=== PATIENT | male | born 1950 | race African-American/Black ===

== ENCOUNTER 2018-01-16 15:35 | Emergency (ER) | payer OTHER ==
--- OUTSIDE RECORDS SUMMARY | 2018-01-16 15:44 | XMS REPORT | Clinical Summary ---
:1950 Author Organization [facility] Address [address] [place] [address] Phone Care Team Providers Name Role Phone Unavailable Primary Care Provider Unavailable Allergies No Known Allergies Current Medications Prescription Sig. Disp. Refills Start Date End Date Status acetaminophen-codeine Take 1 tablet by 30 tablet 1 01/09/2018 01/19/2018 Active (TYLENOL #3) 300-30 mg mouth every 4 per tablet (four) hours as needed for up to 10 days. Max Daily Amount: 6 tablets aspirin 81 MG chewable Take 1 tablet 0 01/09/2018 01/09/2019 Active tablet (81 mg total) by mouth daily. atorvastatin (LIPITOR) Take 1 tablet 30 tablet 1 01/09/2018 01/09/2019 Active 80 MG tablet (80 mg total) by mouth nightly. bimatoprost (LUMIGAN) Place 1 drop 2.5 mL 1 01/09/2018 Active 0.01 % Drop ophthalmic into both eyes solution nightly. brimonidine-timolol Place 1 drop 5 mL 1 01/09/2018 Active (COMBIGAN) 0.2-0.5 % into both eyes ophthalmic solution every 12 (twelve) hours. metoprolol (LOPRESSOR) Take 0.5 tablets 60 tablet 1 01/09/2018 01/09/2019 Active 25 MG tablet (12.5 mg total) by mouth 2 (two) times daily. clopidogrel (PLAVIX) Take 1 tablet 90 tablet 3 01/09/2018 01/09/2019 Active 75 mg tablet (75 mg total) by mouth daily. 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 STEMI (ST elevation myocardial infarction) (HCC) 12/30/2017 Coronary artery disease involving king salmon coronary artery of king salmon heart 12/30 without angina pectoris Respiratory insufficiency Cardiogenic shock (HCC) Pericarditis as complication of acute myocardial infarction (HCC) Chronic kidney disease, unspecified CKD stage Encounters Date Type Specialty Care Team Description 01/09/2018 Procedure Pass 12/31/2017 Orders Only General Internal Medicine 12/31/2017 Procedure Pass 12/31/2017 Anesthesia Event Carlee Raygoza MD 12/30/2017 - Hospital Encounter Cardiology Alcon Henson, Cardiogenic shock 01/09/2018 MD ([facility]);S/P CABG x Beck Zepeda, 4;Acute blood loss anemia;Acute CalvinLeo postoperative (Garo) MD Lazaro pain;Acute respiratory insufficiency 12/30/2017 Anesthesia Event Fili Li MD 12/30/2017 Procedure Pass 12/30/2017 Surgery Carlotta Kwon BYPASS,CORONARY MD Nancy ENDOVASCULAR 12/30/2017 Procedure Pass 12/30/2017 Surgery Alcon Henson L CATH & CORONARY ANGIOS 12/30/2017 Procedure Pass after 01/15/2017 Social History Tobacco Use Types Packs/Day Years Used Date Former Smoker Quit: 07/10/1987 Tobacco Cessation: Counseling Given: No Sex Assigned at Date Recorded Not on file Last Filed Vital Signs Vital Sign Reading Time Taken Blood Pressure 123/61 01/09/2018 11:41 AM CDT Pulse 74 01/09/2018 12:06 PM CDT Temperature 35.9 C (96.6 F) 01/09/2018 11:41 AM CDT Respiratory Rate 18 01/09/2018 12:06 PM CDT Oxygen Saturation 91% 01/09/2018 12:06 PM CDT Inhaled Oxygen Concentration - - Weight 75.1 kg (165 lb 9.6 oz) 01/09/2018 7:51 AM CDT Height 182.9 cm (6') 12/31/2017 7:00 AM CDT Body Mass Index 22.46 01/09/2018 7:51 AM CDT Plan of Treatment Date Type Specialty Care Team Description 01/23/2018 Office Visit Cardiology Carlotta Kwon MD [address] [place] [address] [phone] Procedures Procedure Name Priority Date/Time Associated Diagnosis Comments BYPASS,CORONARY 12/30/2017 7:30 PM Other acne ENDOVASCULAR CDT L CATH & CORONARY ANGIOS 12/30/2017 3:[address] elevation CDT myocardial infarction (STEMI), unspecified artery (HCC) after 01/15/2017 Results EKG-SCANNED (01/11/2018 10:40 AM)VASCULAR DIAGRAM -SCAN (01/11/2018 10:40 AM) RHYTHM STRIP - SCAN (01/11/2018 10:40 AM)POC-Glucose meter (01/09/2018 11:28 AM) Only the most recent of27 resultswithin the time period is included. Component Value Ref Range POC-Glucose Meter 110Comment: TESTED AT [address] 70 - 110 mg/dL [address] Specimen Performing Laboratory Blood [facility] [address] [address] CBC with platelet count + automated diff (01/09/2018 5:08 AM)Only the most recent of12 resultswithin the time period is included. Component Value Ref Range WBC 6.7 3.5 - 10.5 K/L RBC 3.07 (L) 4.63 - 6.08 M/L Hemoglobin 8.8 (L) 13.7 - 17.5 GM/DL Hematocrit 28.3 (L) 40.1 - 51.0 % MCV 92.2 79.0 - 92.2 fL MCH 28.7 25.7 - 32.2 pg MCHC 31.1 (L) 32.3 - 36.5 GM/DL RDW 14.1 11.6 - 14.4 % Platelets 224 150 - 450 K/CU MM MPV 12.1 9.4 - 12.4 fL nRBC 0 0 - 0 /100 WBC % Neutros 69 % % Lymphs 17 % % Monos 10 % % Eos 3 % % Baso 0 % # Neutros 4.58 1.78 - 5.38 K/L # Lymphs 1.15 (L) 1.32 - 3.57 K/L # Monos 0.69 0.30 - 0.82 K/L # Eos 0.19 0.04 - 0.54 K/L # Baso 0.03 0.01 - 0.08 K/L Immature Granulocytes-Relative 1 0 - 1 % Specimen Performing Laboratory Blood [address] [address] CBC with platelet count + automated diff (01/09/2018 5:08 AM)Only the most recent of12 resultswithin the time period is included. Specimen Performing Laboratory Blood Narrative The following orders were created for panel order CBC with platelet count + automated diff. Procedure Abnormality Status --------- ------ CBC with platelet count ...[[id number]]AbnormalFinal result Please view results for these tests on the individual orders. Basic metabolic panel (01/09/2018 5:08 AM)Only the most recent of11 resultswithin the time period is included. Component Value Ref Range Sodium 135 (L) 136 - 145 meq/L Potassium 4.3 3.5 - 5.1 meq/L Chloride 102 98 - 107 meq/L CO2 26 22 - 29 meq/L BUN 17 7 - 21 mg/dL Creatinine 1.04 0.57 - 1.25 mg/dL Glucose 97 70 - 105 mg/dL Calcium 8.9 8.4 - 10.2 mg/dL EGFR 86Comment: ESTIMATED GFR IS NOT ACCURATE mL/min/1.73 sq m CREATININE CLEARANCE IN PREDICTING GLOMERULAR FILTRATION RATE. ESTIMATED GFR IS NOT APPLICABLE FOR DIALYSIS PATIENTS. Specimen Performing Laboratory Blood [address] [address] XR shoulder complete 2 views min left (01/08/2018 9:00 PM) Specimen Performing Laboratory GE RIS Narrative FINAL REPORT Technique: Multiple views of the left shoulder FINDINGS: Exam somewhat limited for the assessment of dislocation is a Y view is not submitted. No definite fracture or dislocation seen. Degenerative changes at the AC joint and glenohumeral joints noted. Signed: Nikolas Fernández MD Report Verified Date/Time:01/08/2018 21:27:28 Reading Location: [address] Consult Reading Room Procedure Note Interface, External Ris In - 01/08/2018 9:38 PM CDT FINAL REPORT Technique: Multiple views of the left shoulder FINDINGS: Exam somewhat limited for the assessment of dislocation is a Y view is not submitted. No definite fracture or dislocation seen. Degenerative changes at the AC joint and glenohumeral joints noted. Signed: Nikolas Fernández MD Report Verified Date/Time: 01/08/2018 21:27:28 Reading Location: [facility] C013W Consult Reading Room chest 1 view portable / bedside (01/08/2018 5:42 PM)Only the most recent of11 resultswithin the time period is included. Specimen Performing Laboratory GE RIS Narrative FINAL REPORT Chest, one view. HISTORY: Thoracentesis COMPARISON: 01/07/2018 IMPRESSION: Interval resolution of moderate left pleural effusion. No identifiable pneumothorax. Unchanged enlargement of the cardiomediastinal silhouette with mild interstitial edema. Intact median sternotomy wires. Signed: Hawk Whaley MD Report Verified Date/Time:01/08/2018 17:51:49 Reading Location: [address] Ultrasound Reading Room Procedure Note Interface, External Ris In - 01/08/2018 5:54 PM CDT FINAL REPORT Chest, one view. HISTORY: Thoracentesis COMPARISON: 01/07/2018 IMPRESSION: Interval resolution of moderate left pleural effusion. No identifiable pneumothorax. Unchanged enlargement of the cardiomediastinal silhouette with mild interstitial edema. Intact median sternotomy wires. Signed: Hawk Whaley MD Report Verified Date/Time: 01/08/2018 17:51:49 Reading Location: [facility] P006 Ultrasound Reading Room thoracentesis (01/08/2018 5:30 PM) Specimen Performing Laboratory GE RIS Narrative FINAL REPORT Ultrasound guided left thoracentesis Clinical History:Pleural effusion Modality:Ultrasound Local Anesthesia:10 cc1% lidocaine with bicarbonate Technique:Informed consent is obtained.The risks of pain, bleeding, infection, lung collapse/pneumothorax, injury to adjacent structures, and adverse medication reactions are discussed with the patient.After informed consent is obtained, the patient's left hemithorax is scanned from the back, with the patient upright.After the largest fluid pocket area is marked, the skin is prepped and draped in the usual sterile manner.After the area is anesthetized, a 5 Jamaican catheter is advanced into the pleural space. Approximately 400 cc. of anterior segment is fluid is drained, without immediate complications.Fluid is sent for analysis.Post procedure chest x-ray is pending. Patient disposition:Patient is discharged from the ultrasound department after the thoracentesis in good condition. Impression: Successful and uncomplicated ultrasound guided left thoracentesis is performed. Signed: Hawk Whaley MD Report Verified Date/Time:01/09/2018 13:33:27 Reading Location: [facility] Diagnostic Imaging [facility] [place] [address] Procedure Note Interface, External Ris In - 01/09/2018 1:35 PM CDT FINAL REPORT Ultrasound guided left thoracentesis Clinical History: Pleural effusion Modality: Ultrasound Local Anesthesia: 10 cc1% lidocaine with bicarbonate Technique: Informed consent is obtained. The risks of pain, bleeding, infection, lung collapse/pneumothorax, injury to adjacent structures, and adverse medication reactions are discussed with the patient. After informed consent is obtained, the patient's left hemithorax is scanned from the back, with the patient upright. After the largest fluid pocket area is marked, the skin is prepped and draped in the usual sterile manner. After the area is anesthetized, a 5 Jamaican catheter is advanced into the pleural space. Approximately 400 cc. of anterior segment is fluid is drained, without immediate complications. Fluid is sent for analysis. Post procedure chest x-ray is pending. Patient disposition: Patient is discharged from the ultrasound department after the thoracentesis in good condition. Impression: Successful and uncomplicated ultrasound guided left thoracentesis is performed. Signed: Hawk Whaley MD Report Verified Date/Time: 01/09/2018 13:33:27 Reading Location: [facility] Diagnostic Imaging Reading [facility] [place] [address] pH, body fluid (01/08/2018 4:50 PM) Component Value Ref Range pH, Body Fluid 7.58 Specimen Performing Laboratory Body Fluid - Thoracentesis [address] [address] Glucose, body fluid (01/08/2018 4:50 PM) Component Value Ref Range Glucose, Body Fluid 111 mg/dL Specimen Performing Laboratory Body Fluid - Thoracentesis [address] [address] Narrative Absence of reference range indicates that normals have not been defined. Assay performance has not been validated for this type of specimen. Body fluid culture + gram stain (01/08/2018 4:50 PM) Component Value Ref Range Result No growth Gram Stain Result <1+ WBCs Gram Stain Result No organisms seen Specimen Performing Laboratory Body Fluid - Thoracentesis [address] [address] Body fluid cell count with differential (01/08/2018 4:50 PM) Component Value Ref Range Appearance Bloody (A) Clear Color Red (A) Colorless, Straw RBCs 9226824 (H) <=1 /cu mm Adjusted WBC Count 2068 (H) <=5 /cu mm Lining Cells 62 (H) <=1 /cu mm % Segs 8 % % Lymphs 37 % % Monos 53 % % Eos 2 % % Baso 0 % Container Body Fluid EDTA Tube Specimen Performing Laboratory Body Fluid - Thoracentesis [address] [address] Protein, body fluid (01/08/2018 4:50 PM) Component Value Ref Range Protein, Fluid 3.8 g/dL Specimen Performing Laboratory Body Fluid - Thoracentesis [address] [address] Narrative Absence of reference range indicates that normals have not been defined. Assay performance has not been validated for this type of specimen. Lactate dehydrogenase (LDH), body fluid (01/08/2018 4:50 PM) Component Value Ref Range LDH, Fluid 595 U/L Specimen Performing Laboratory Body Fluid - Thoracentesis [address] [address] Narrative Absence of reference range indicates that normals have not been defined. Assay performance has not been validated for this type of specimen. Albumin, body fluid (01/08/2018 4:50 PM) Component Value Ref Range Albumin, Fluid 2.3 gm/dL Specimen Performing Laboratory Body Fluid - Thoracentesis [address] [address] Narrative Reference Range:No Normals Assay performance has not been validated for this type of specimen. PT/aPTT (01/08/2018 4:35 AM) Component Value Ref Range Protime 14.3 11.7 - 14.7 seconds INR 1.1 <=5.9 PTT 33.3 22.5 - 36.0 seconds Specimen Performing Laboratory Blood [address] [address] Narrative RECOMMENDED COUMADIN/WARFARIN INR THERAPY RANGES STANDARD DOSE: 2.0 - 3.0 Includes: PROPHYLAXIS for venous thrombosis, systemic embolization; TREATMENT for venous thrombosis and/or pulmonary embolus. HIGH RISK: Target INR is 2.5-3.5 for patients with mechanical heart valves. Prothrombin time/INR (01/08/2018 4:35 AM)Only the most recent of8 resultswithin the time period is included. Component Value Ref Range Protime 14.3 11.7 - 14.7 seconds INR 1.1 <=5.9 Specimen Performing Laboratory Blood [address] [address] Narrative RECOMMENDED COUMADIN/WARFARIN INR THERAPY RANGES STANDARD DOSE: 2.0 - 3.0 Includes: PROPHYLAXIS for venous thrombosis, systemic embolization; TREATMENT for venous thrombosis and/or pulmonary embolus. HIGH RISK: Target INR is 2.5-3.5 for patients with mechanical heart valves. Protein, total (01/08/2018 4:35 AM) Component Value Ref Range Protein, Total 6.6 6.0 - 8.3 gm/dL Specimen Performing Laboratory Blood [address] [address] Lactate dehydrogenase (LDH) (01/08/2018 4:35 AM) Component Value Ref Range LDH 289 (H) 125 - 220 U/L Specimen Performing Laboratory Blood [address] [address] Albumin (01/08/2018 4:35 AM) Component Value Ref Range Albumin 3.2 (L) 3.5 - 5.0 g/dL Specimen Performing Laboratory Blood [facility] [address] [place] [address] CT chest with IV contrast (01/07/2018 4:47 PM) Specimen Performing Laboratory GE RIS Narrative FINAL REPORT INDICATION: 67-year-old male with left pleural effusion. COMPARISON: Chest radiograph January 07, 2018 TECHNIQUE: Chest CT exam WITHintravenous contrast. The exam was performed according to our department dose-optimization protocol, which includes automated exposure control, adjustments of mA and kV according to patient size. Iterative reconstructions are also sometimes employed. FINDINGS: There is a small layering low density left pleural effusion associated with partial collapse of the left lower lobe. In the left anterior pleura there is loculated fluid with several foci of air likely from recent thoracentesis. Tiny right posterior layering pleural effusion also noted. Patient is status post recent median sternotomy and coronary artery bypass surgery. Sternotomy wires are intact. No mediastinal hematoma. No pulmonary edema or definite pneumonia. Central airways are clear. No mediastinal or hilar lymphadenopathy. Esophagus and upper abdomen are unremarkable. IMPRESSION: Small layering low density left pleural effusion with small anterior loculated intermediate density fluid component. Recent median sternotomy and coronary artery bypass surgery. Signed: Tod Britt MD Report Verified Date/Time:01/07/2018 18:26:42 Reading Location: [facility] C013Y CT Body Reading Room Procedure Note Interface, External Ris In - 01/07/2018 6:28 PM CDT FINAL REPORT INDICATION: 67-year-old male with left pleural effusion. COMPARISON: Chest radiograph January 07, 2018 TECHNIQUE: Chest CT exam WITH intravenous contrast. The exam was performed according to our department dose-optimization protocol, which includes automated exposure control, adjustments of mA and kV according to patient size. Iterative reconstructions are also sometimes employed. FINDINGS: There is a small layering low density left pleural effusion associated with partial collapse of the left lower lobe. In the left anterior pleura there is loculated fluid with several foci of air likely from recent thoracentesis. Tiny right posterior layering pleural effusion also noted. Patient is status post recent median sternotomy and coronary artery bypass surgery. Sternotomy wires are intact. No mediastinal hematoma. No pulmonary edema or definite pneumonia. Central airways are clear. No mediastinal or hilar lymphadenopathy. Esophagus and upper abdomen are unremarkable. IMPRESSION: Small layering low density left pleural effusion with small anterior loculated intermediate density fluid component. Recent median sternotomy and coronary artery bypass surgery. Signed: Tod Britt MD Report Verified Date/Time: 01/07/2018 18:26:42 Reading Location: [facility] C013 CT Body Reading Room Magnesium (01/06/2018 3:57 AM)Only the most recent of8 resultswithin the time period is included. Component Value Ref Range Magnesium 2.0 1.6 - 2.6 mg/dL Specimen Performing Laboratory Blood - Arm, Left [address] [address] TRANSFUSION SERVICE REPORT - SCAN (01/04/2018 5:52 PM)Only the most recent of5 resultswithin the time period is included.Prepare Leuko-Red RBC (01/03/2018 11: 54 PM)Only the most recent of2 resultswithin the time period is included. Component Value Ref Range CROSSMATCH COMPATIBLE Unit ABO O Pos UNIT NUMBER [id number] Status TRANSFUSED Blood Bank Product RED BLOOD CELLS PRODUCT CODE [id number] Specimen Performing Laboratory Other [employer] [place] Hemoglobin and hematocrit (01/03/2018 4:08 PM)Only the most recent of3 resultswithin the time period is included. Component Value Ref Range Hemoglobin 7.7 (L) 13.7 - 17.5 GM/DL Hematocrit 24.7 (L) 40.1 - 51.0 % Specimen Performing Laboratory Blood [address] [address] Lactic acid, venous, whole blood (01/03/2018 4:08 PM) Component Value Ref Range Lactate, Venous 1.1 0.5 - 2.2 mmol/L Specimen Performing Laboratory Blood [address] [address] Narrative Effective 10/13/2015: Units/Reference Range Change New: 0.5-2.2 mmol/LPrevious: 5-20 mg/dL ECHOCARDIOGRAM REPORT - SCAN (01/03/2018 11:20 AM)CBC (Hemogram only) (2017 9:12 AM) Component Value Ref Range WBC 7.6 3.5 - 10.5 K/L RBC 2.59 (L) 4.63 - 6.08 M/L Hemoglobin 7.4 (L) 13.7 - 17.5 GM/DL Hematocrit 23.4 (L) 40.1 - 51.0 % MCV 90.3 79.0 - 92.2 fL MCH 28.6 25.7 - 32.2 pg MCHC 31.6 (L) 32.3 - 36.5 GM/DL RDW 14.2 11.6 - 14.4 % Platelets 96 (L) 150 - 450 K/CU MM MPV 12.8 (H) 9.4 - 12.4 fL nRBC 0 0 - 0 /100 WBC Specimen Performing Laboratory [address] [address] Oxygen saturation, measured (01/03/2018 3:16 AM)Only the most recent of4 resultswithin the time period is included. Component Value Ref Range O2 Saturation (Measured) 90.1 % Specimen Performing Laboratory [address] [address] Calcium, Ionized (01/03/2018 3:16 AM)Only the most recent of5 resultswithin the time period is included. Component Value Ref Range Calcium, Ion 1.11 (L) 1.12 - 1.27 mmol/L pH, Blood 7.42 Specimen Performing Laboratory [address] [address] aPTT (01/03/2018 3:16 AM)Only the most recent of6 resultswithin the time period is included. Component Value Ref Range PTT 32.0 22.5 - 36.0 seconds Specimen Performing Laboratory [address] [address] Phosphorus (01/03/2018 3:16 AM)Only the most recent of5 resultswithin the time period is included. Component Value Ref Range Phosphorus 2.6 2.3 - 4.7 mg/dL Specimen Performing Laboratory [address] [address] Hepatic function panel (01/03/2018 3:16 AM)Only the most recent of5 resultswithin the time period is included. Component Value Ref Range Protein, Total 5.8 (L) 6.0 - 8.3 gm/dL Albumin 3.1 (L) 3.5 - 5.0 g/dL Total Bilirubin 0.9 0.2 - 1.2 mg/dL Bilirubin, Direct 0.5 0.1 - 0.5 mg/dL Alkaline Phosphatase 47 40 - 150 U/L AST 23 5 - 34 U/L ALT 8 6 - 55 U/L Specimen Performing Laboratory Blood [facility] [address] [place] [address] Transfuse Leuko-Red RBC (01/02/2018 10:41 PM)Only the most recent of4 resultswithin the time period is included.2D Echo W/Doppler(CW/PW/Color) (2017 11:49 AM) Component Value Ref Range Ejection Fraction Specimen Performing Laboratory [facility] Narrative Transthoracic Echocardiography Report (TTE) Demographics Patient Name PAYNE,Date of Study2017 JUSTIN [id number] Gender Male Visit Number [id number] Race Unknown [id number] Number 2C50 Number Date of Birth1950 Referring PhysicianShela Beck S Age67 year(s) SonographChrisetlle lEliott [facility] Interpreting Tiffanie Burgess Procedure Type of Study TTE procedure:2DECHO W DOPPLER(CW/PW/COLOR) (Routine) Indications:Acute Chest Pain/ Suspected CAD and Post Op . Clinical History Bypass/coronary endovascular12/30/17; L cath/CA12/30/17; HGB 6.9 HCT 21.4 % Contrast Medium: Definity. Height: 72 inches Weight: 82.1 kg (181 lbs) BSA: 2.04 m^2 BMI: 24.55 kg/m^2 HR: 84 bpm BP: 161/50 mmHg Summary The left ventricle is chamber size (by PSLAX dimension) is normal (male - LVIDd 4.2-5.8cm) . Normal LV wall thickness. All of the LV segments contract normally . LVEF by Gallardo's method of disk assessment is lower limits of normal (50-55%) . LV diastolic function is indeterminate. There is mild aortic regurgitation. Unable to estimate peak systolic PA pressure; inadequate TR velocity signal. A small pericardial effusion is present posteriorly. Signature Findings Left Ventricle The left ventricle is chamber size (by PSLAX dimension) is normal (male - LVIDd 4.2-5.8cm) . Normal LV wall thickness. All of the LV segments contract normally . LVEF by Gallardo's method of disk assessment is lower limits of normal (50-55%) . LV diastolic function is indeterminate. Left AtriumLA size is normal (16-34 ml/m2) . Right VentricleThe right ventricular chamber size and systolic function are within normal limits. Right Atrium RA size is normal. Aortic Valve Mild AoV cusp thickening. Mild AoV cusp calcification. There is mild aortic regurgitation. Mitral Valve Mild MV leaflet thickening. Tricuspid ValveTV structure is normal. Mild tricuspid regurgitation. Unable to estimate peak systolic PA pressure; inadequate TR velocity signal. Pulmonic Valve Normal PV structure and function by limited views and Doppler. AortaAortic root size (SInus of Valsalva diameter) is normal . PericardiumA small pericardial effusion is present posteriorly. IVC/SVC/PA/PV/PleuralA left pleural effusion is noted. The estimated RA pressure by IVC dynamics 5-10mmHg . Chambers/Structures Left Atrium LA Dimension: 3.45 cmLA Area: 16.68 cm^2 LA Volume: 46.47 ml LA Vol. Index: 23 ml/m^2 Left Ventricle LVIDd: 3.92 cm LVIDs: 2.79 cm LV Septum Diastolic: 0.97 cm LV PW Diastolic: 1.12 cmLV FS: 28.8 % LVEDV Gallardo's:133.53 ml LVESV Gallardo's:55 ml LVEDVI: 65 ml/m^2 LVEF Gallardo's: 58.8 %LVESVI: 27 ml/m^2 LVOT Diameter: 2.37 cm Aorta Ao Root S of Maria Isabel.: 3.19 cm Doppler/Quantitative Measurements LVOT LVOT Diameter: 2.37 cm LVOT Area: 4.41 cm^2 Procedure Note Interface, External Ris In - 01/03/2018 10:34 AM CDT Transthoracic Echocardiography Report (TTE) Demographics Patient Name PAYNE, Date of Study 01/02/2018 JUSTIN Gender Male Visit Number [id number] Race Unknown Room Number 2C50 Number Date of 1950 Referring Physician Katelyn Saavedra Age 67 year(s) Developer Automatic Charlette Elliott [facility] Interpreting Physician HANNAH Burgess Procedure Type of Study TTE procedure:2DECHO W DOPPLER(CW/PW/COLOR) (Routine) Indications:Acute Chest Pain/ Suspected CAD and Post Op . Clinical History Bypass/coronary endovascular12/30/17; L cath/CA12/30/17; HGB 6.9 HCT 21.4 % Contrast Medium: Definity. Height: 72 inches Weight: 82.1 kg (181 lbs) BSA: 2.04 m^2 BMI: 24.55 kg/m^2 HR: 84 bpm BP: 161/50 mmHg Summary The left ventricle is chamber size (by PSLAX dimension) is normal (male - LVIDd 4.2-5.8cm) . Normal LV wall thickness. All of the LV segments contract normally . LVEF by Gallardo's method of disk assessment is lower limits of normal (50-55%) . LV diastolic function is indeterminate. There is mild aortic regurgitation. Unable to estimate peak systolic PA pressure; inadequate TR velocity signal. A small pericardial effusion is present posteriorly. Signature Findings Left Ventricle The left ventricle is chamber size (by PSLAX dimension) is normal (male - LVIDd 4.2-5.8cm) . Normal LV wall thickness. All of the LV segments contract normally . LVEF by Gallardo's method of disk assessment is lower limits of normal (50-55%) . LV diastolic function is indeterminate. Left Atrium LA size is normal (16-34 ml/m2) . Right Ventricle The right ventricular chamber size and systolic function are within normal limits. Right Atrium RA size is normal. Aortic Valve Mild AoV cusp thickening. Mild AoV cusp calcification. There is mild aortic regurgitation. Mitral Valve Mild MV leaflet thickening. Tricuspid Valve TV structure is normal. Mild tricuspid regurgitation. Unable to estimate peak systolic PA pressure; inadequate TR velocity signal. Pulmonic Valve Normal PV structure and function by limited views and Doppler. Aorta Aortic root size (SInus of Valsalva diameter) is normal . Pericardium A small pericardial effusion is present posteriorly. IVC/SVC/PA/PV/Pleural A left pleural effusion is noted. The estimated RA pressure by IVC dynamics 5-10mmHg . Chambers/Structures Left Atrium LA Dimension: 3.45 cm LA Area: 16.68 cm^2 LA Volume: 46.47 ml LA Vol. Index: 23 ml/m^2 Left Ventricle LVIDd: 3.92 cm LVIDs: 2.79 cm LV Septum Diastolic: 0.97 cm LV PW Diastolic: 1.12 cm LV FS: 28.8 % LVEDV Gallardo's:133.53 ml LVESV Gallardo's:55 ml LVEDVI: 65 ml/m^2 LVEF Gallardo's: 58.8 % LVESVI: 27 ml/m^2 LVOT Diameter: 2.37 cm Aorta Ao Root S of Maria Isabel.: 3.19 cm Doppler/Quantitative Measurements LVOT LVOT Diameter: 2.37 cm LVOT Area: 4.41 cm^2 CARDIAC CATH REPORT - SCAN (01/02/2018 11:31 AM)Prepare PLT (01/01/2018 11:54 PM ) Component Value Ref Range Unit ABO O Pos UNIT NUMBER [id number] Status TRANSFUSED Blood Bank Product PLATELETS PRODUCT CODE L3707X05 Unit ABO O Pos UNIT NUMBER [id number] Status TRANSFUSED Blood Bank Product PLATELETS PRODUCT CODE T4486A44 Unit ABO O Pos UNIT NUMBER [id number] Status TRANSFUSED Blood Bank Product PLATELETS PRODUCT CODE T1999A88 Specimen Performing Laboratory [facility] [place] Prepare plasma (01/01/2018 11:54 PM) Component Value Ref Range Unit ABO O Pos UNIT NUMBER [id number] Status TRANSFUSED Blood Bank Product FFP PRODUCT CODE E1616J59 Unit ABO O Pos UNIT NUMBER [id number] Status TRANSFUSED Blood Bank Product FFP PRODUCT CODE J2061Z35 Specimen Performing [facility] [place] Prepare cryoprecipitate (01/01/2018 11:54 PM) Component Value Ref Range Unit ABO O Pos UNIT NUMBER [id number] Status TRANSFUSED Blood Bank Product CRYOPRECIPITATE PRODUCT CODE I1746S88 Specimen Performing Laboratory [facility] [place] Prepare RBC (01/01/2018 11:54 PM) Component Value Ref Range CROSSMATCH COMPATIBLE Unit ABO O Pos UNIT NUMBER [id number] Status RETURNED FROM ISSUE Blood Bank Product RED BLOOD CELLS PRODUCT CODE T5130E59 CROSSMATCH COMPATIBLE Unit ABO O Pos UNIT NUMBER [id number] Status TRANSFUSED Blood Bank Product RED BLOOD CELLS PRODUCT CODE M3141C37 Specimen Performing Laboratory [facility] [place] Blood gas, arterial (01/01/2018 10:27 AM)Only the most recent of13 resultswithin the time period is included. Component Value Ref Range pH, Arterial 7.45 7.35 - 7.45 pCO2, Arterial 37 35 - 45 mm Hg pO2, Arterial 74 (L) 80 - 90 mm Hg O2 Sat, Arterial 95.2 (L) 96.0 - 97.0 % HCO3, Arterial 25 21 - 29 mmol/L Base Excess, Arterial 1.1 -2.0 - 3.0 mmol/L Patient Temperature 37.7 FIO2 36 Specimen Performing Laboratory Blood, Arterial - Line, Arterial [facility] [address] [address] Glucose-Stat Lab (01/01/2018 8:35 AM)Only the most recent of10 resultswithin the time period is included. Component Value Ref Range Glucose 111 (H) 70 - 110 mg/dL Specimen Performing Laboratory Blood, Arterial - Line, Arterial [address] [address] Hemoglobin-Stat Lab (01/01/2018 6:38 AM) Component Value Ref Range Hemoglobin 7.8 (L) 13.0 - 16.8 g/dL Specimen Performing Laboratory Blood, [address] [address] Hematocrit-Stat Lab (01/01/2018 6:38 AM) Component Value Ref Range Hematocrit 23.0 (L) 40.0 - 50.0 % Specimen Performing Laboratory Blood, [address] [address] Lactic acid, arterial, whole blood (01/01/2018 3:31 AM)Only the most recent of2 resultswithin the time period is included. Component Value Ref Range Lactate, Art 1.4 0.5 - 2.2 mmol/L Specimen Performing Laboratory Blood, Arterial - Line, Arterial [address] [address] Narrative Effective 10/13/2015: Units/Reference Range Change New: 0.5-2.2 mmol/LPrevious: 5-20 mg/dL Vancomycin level, random (01/01/2018 3:31 AM) Component Value Ref Range Vancomycin Rm 5.4 ug/mL Specimen Performing Laboratory Blood - Line, [address] [address] Narrative Reference Range: No Normals ECG 12 lead (12/31/2017 10:21 AM) Specimen Performing Laboratory [place] [facility] Narrative Ventricular Rate 71 BPM Atrial Rate 71 BPM P-R Interval 150 ms QRS Duration 80 ms Q-T Interval 392 ms QTC Calculation(Bazett) 425 ms P [place] 27 degrees R [place] 70 degrees T [place] 36 degrees Normal sinus rhythm ST elevation consider anterolateral injury or acute infarct ST elevation consider inferior injury or acute infarct * ACUTE CA * Abnormal ECG No previous ECGs available Confirmed by Kimberlee Vaca Alireaz ([id number]) on 12/31/2017 2:04:59 PM Procedure Note Interface, External Ris In - 12/31/2017 2:05 PM CDT Ventricular Rate 71 BPM Atrial Rate 71 BPM P-R Interval 150 ms QRS Duration 80 ms Q-T Interval 392 ms QTC Calculation(Bazett) 425 ms P [place] 27 degrees R [place] 70 degrees T [place] 36 degrees Normal sinus rhythm ST elevation consider anterolateral injury or acute infarct ST elevation consider inferior injury or acute infarct * ACUTE CA * Abnormal ECG No previous ECGs available Confirmed by Kimberlee Vaca Alireaz ([id number]) on 12/31/2017 2:04:59 PM [facility] (ABG,NA,K,H&H,GLUCOSE) (12/31/2017 4:51 AM)Only the most recent of9 resultswithin the time period is included. Specimen Performing Laboratory Blood, Arterial Narrative The following orders were created for panel order [facility] (ABG,NA,K,H&H,GLUCOSE). Procedure Abnormality Status --------- ------ Blood gas, arterial[[id number]]AbnormalFinal result Sodium Na-Stat Lab[[id number]] NormalFinal result Potassium-Stat Lab[[id number]] NormalFinal result Glucose-Stat Lab[[id number]] AbnormalFinal result HGB/HCT (H&H)-Stat Lab[[id number]] Abnormal Final result Please view results for these tests on the individual orders. Potassium-Stat Lab (12/31/2017 4:51 AM)Only the most recent of9 resultswithin the time period is included. Component Value Ref Range Potassium 3.7 3.6 - 5.5 meq/L Specimen Performing Laboratory Blood, Arterial [address] [address] Sodium Na-Stat Lab (12/31/2017 4:51 AM)Only the most recent of9 resultswithin the time period is included. Component Value Ref Range Sodium 142 135 - 148 meq/L Specimen Performing Laboratory Blood, Arterial [address] [address] Manual Differential (12/31/2017 4:51 AM) Component Value Ref Range % Neutros 66 % % Lymphs 15 % % Monos 2 % % Bands 16 (H) 0 - 10 % # Neutros 5.74 (H) 1.78 - 5.38 K/ul # Lymphs 1.31 (L) 1.32 - 3.57 K/ul # Monos 0.17 (L) 0.30 - 0.82 K/uL # Bands 1.39 (H) 0.00 - 0.80 K/uL Total Counted 100 RBC Morphology Normal WBC Morphology Normal Platelet Morphology Normal Artifact Present Platelet Conc Decreased Specimen [place] [address] Narrative Received comment: User comments: Slide comments: HGB/HCT (H&H)-Stat Lab (12/31/2017 4:51 AM)Only the most recent of9 resultswithin the time period is included. Component Value Ref Range Hemoglobin 10.1 (L) 13.0 - 16.8 g/dL Hematocrit 30.0 (L) 40.0 - 50.0 % Specimen Performing Laboratory Blood, Arterial [address] [address] Thromboelastograph (TEG) (12/31/2017 4:51 AM)Only the most recent of2 resultswithin the time period is included. Component Value Ref Range TEG Activated Clotting Time 8.2 (H) 4.0 - 7.0 minutes TEG Fibrinogen Activity 68.1 61.0 - 73.0 degrees TEG Platelet Aggregation 56.8 55.0 - 65.0 MM TEG Fibrinolysis 0.0 0.0 - 5.0 % TEG-H Activated Clotting Time 8.0 (H) 4.0 - 7.0 minutes TEG-H Fibrinogen Activity 69.1 61.0 - 73.0 degrees TEG-H Platelet Aggregation 55.0 55.0 - 65.0 MM TEG-H Fibrinolysis 0.5 0.0 - 5.0 % Specimen Performing Laboratory Blood [address] [address] Fibrinogen (12/31/2017 4:51 AM)Only the most recent of2 resultswithin the time period is included. Component Value Ref Range Fibrinogen 251 225 - 434 mg/dl Specimen Performing Laboratory Blood [address] [address] POC ACTIVATED CLOTTING TIME (12/31/2017 2:25 AM)Only the most recent of9 resultswithin the time period is included. Component Value Ref Range Activated Clotting Time 109Comment: TESTED AT [address] [place] [id number] Specimen Performing Laboratory Blood [facility] [address] [address] ANESTHESIA ERI (12/30/2017 10:10 PM) Narrative Cameron Nolasco MD 12/30/2017 10:10 PM ERI Date: 12/30/2017 9:54 PM Sex: Male Location: OR Requesting Physician: CARLOTTA KWON Examiner: CAMERON NOLASCO JASON Indication: ACBIntubatedSedated Patient screened for esoph disease: Yes Insertion: easy Probe Type: multiplane Modalities: 2D, CWD and PWD Aorta Size Dissection Plaque Thick Plaque Mobile Ascending Ao normal No Ao Arch normal No Descending Ao normal No Valves Annulus Stenosis Area (cm3) Gradient Regurgitation Leaflet Morphology Leaflet Motion Not Visualized Aortic valve normal none trivial (1+) normal normal Mitral valve normalmild (2+) Tricuspid normaltrivial (1+) Atria Size SEC Thrombus Tumor Device Right Atrium normalNo Left Atrium normalNo Interatrial Septum: Morphology: normal ASD: Shunt: Interventricular Septum: Morphology: normal Defect: Shunt: Ventricles Cavity size Dimension Hypertrophy Thrombus Global FXN EF Right ventricle dilatedmildly impaired 50 Left ventricle normalmildly impaired 50 Pre Intervention Summary: 67 yo M presenting with STEMI and critical left main stenosis s/f ACB x3 1. LV normal size, mildly reduced function, LVEF 45-50% 2. RV mildly dilated, mildly reduced function 3. Aortic valve trileaflet, no stenosis, JESUS 1.85 cm2 by continuity equation, mild AI (PHT 741 ms) 4. Mitral valve structurally normal, mild to moderate MR 5. Tricuspid valve structurally normal, mild TR 6. Normal aorta, IABP seen in descending aorta 7. Normal interatrial septum, no PFO 8. No pericardial effusion Post Intervention Summary: Procedure Note Cameron Nolasco MD - 12/30/2017 9:54 PM CDT Formatting of this note may be different from the original. ERI Date: 12/30/2017 9:54 PM Sex: Male Location: OR Requesting Physician: CARLOTTA KWON Examiner: CAMERON NOLASCO JASON Indication: ACB Intubated Sedated Patient screened for esoph disease: Yes Insertion: easy Probe Type: multiplane Modalities: 2D, CWD and PWD Aorta Size Dissection Plaque Thick Plaque Mobile Ascending Ao normal No Ao Arch normal No Descending Ao normal No Valves Annulus Stenosis Area (cm3) Gradient Regurgitation Leaflet Morphology Leaflet Motion Not Visualized Aortic valve normal none trivial (1+) normal normal Mitral valve normal mild (2+) Tricuspid normal trivial (1+) Atria Size SEC Thrombus Tumor Device Right Atrium normal No Left Atrium normal No Interatrial Septum: Morphology: normal ASD: Shunt: Interventricular Septum: Morphology: normal Defect: Shunt: Ventricles Cavity size Dimension Hypertrophy Thrombus Global FXN EF Right ventricle dilated mildly impaired 50 Left ventricle normal mildly impaired 50 Pre Intervention Summary: 67 yo M presenting with STEMI and critical left main stenosis s/f ACB x3 1. LV normal size, mildly reduced function, LVEF 45-50% 2. RV mildly dilated, mildly reduced function 3. Aortic valve trileaflet, no stenosis, JESUS 1.85 cm2 by continuity equation, mild AI (PHT 741 ms) 4. Mitral valve structurally normal, mild to moderate MR 5. Tricuspid valve structurally normal, mild TR 6. Normal aorta, IABP seen in descending aorta 7. Normal interatrial septum, no PFO 8. No pericardial effusion Post Intervention Summary: TSH (12/30/2017 9:12 PM) Component Value Ref Range TSH 0.37 0.35 - 4.94 uIU/mL Specimen Performing Laboratory Blood [address] [address] Hemoglobin A1c (12/30/2017 9:12 PM) Component Value Ref Range Hemoglobin A1C 5.6 4.3 - 6.1 % Specimen Performing Laboratory Blood [address] [address] Troponin I (12/30/2017 9:11 PM) Component Value Ref Range Troponin I <0.01 0.00 - 0.03 ng/mL Specimen Performing Laboratory Blood [address] [address] Narrative Troponin I (TnI) levels must be interpreted in the context of the presenting symptoms and the clinical findings. Elevated TnI levels indicate myocardial damage, but are not specific for ischemic heart disease. Elevated TnI levels are seen in patients with other cardiac conditions (including myocarditis and congestive heart failure), and slight TnI elevations occur in patients with other conditions, including sepsis, renal failure, acidosis, acute neurological disease, and persistent tachyarrhythmia. Creatine Kinase (CK), Total and MB (12/30/2017 9:11 PM) Component Value Ref Range Total CK 99 29 - 200 U/L CK-MB 0.7 0.0 - 6.6 ng/mL MB Relative Index 0.7 % Specimen Performing Laboratory Blood [address] [address] Narrative CK-MB Reference Range: <6.7Normal 6.7-10.0Borderline >10.0 Abnormal Lipid panel (12/30/2017 9:11 PM) Component Value Ref Range Triglycerides 72 mg/dL Cholesterol 161 mg/dL HDL 47 mg/dL LDL Calculated 100 mg/dL Specimen Performing Laboratory Blood [address] [address] Narrative Triglyceride Reference Range: Low Risk <150 [id number] High Risk 200-499 Very High Risk>=500 Cholesterol Reference Range: Low Risk <200 [id number] High Risk>240 HDL Cholesterol Reference Range: Low Risk >=60 High Risk <40 LDL Cholesterol Reference Range: Optimal<100 Near [id number] Very High >=190 Type and screen, automated (12/30/2017 7:57 PM) Component Value Ref Range ABO/RH AUTOMATED (MATTHEW) O POSITIVE Ab Scrn NEGATIVE Specimen Performing Laboratory [address] [address] after 01/15/2017
--- OUTSIDE RECORDS SUMMARY | 2018-01-16 15:46 | XMS REPORT ---
:1950 [facility] Address [address] [place] [address] Dr. Snow [address] [place] [id number] Care Team Providers Name Role Phone EMMA MATAMOROS Unavailable Unavailable Problems This patient has no known problems. Allergies, Adverse Reactions, Alerts This patient has no known allergies or adverse reactions. Medications This patient has no known medications. Results Test Description Test Time Test Comments Text Results Atomic Results Result Comments BODY FLUID CULTURE + GRAM STAIN 2018-01-11 09:39:00 Test Item Value Reference Range Comments CULTURE (BEAKER) (test wdzk=7692) No growth GRAM STAIN RESULT (BEAKER) (test ziwc=9816) <1+ WBCs GRAM STAIN RESULT (BEAKER) (test blak=49427) No organisms seen U/S, [id number] 13:33:00Laterality?->LeftReason for exam:-> left effusionFINAL REPORT Ultrasound guided left thoracentesis Clinical History: Pleuraleffusion Modality: Ultrasound Local Anesthesia: 10 cc1% lidocaine [...] After the area is anesthetized, a 5 Turkmen catheter is advanced into the pleural space. Approximately 400 cc. of anterior segment is fluid is drained, without immediate complications. Fluid is sent for analysis. Post procedure chest x-ray is pending. Patient disposition: Patientis discharged from the ultrasound department after the thoracentesis in good condition. Impression: Successful and uncomplicated ultrasound guided left thoracentesis is performed. Signed: Ben, Hawk MDReport Verified Date/Time: 01/09/2018 13:33:27 Reading Location: [facility] Diagnostic Imaging Reading Room - [place] [address] POCT-GLUCOSE [id number] 11:45:00 Test Item Value Reference Range Comments POC-GLUCOSE METER (BEAKER) 110 mg/dL 70-110 TESTED AT [facility] [address] [facility] (test obqf=9367) [facility] [address] POCT-GLUCOSE [id number] 08:15:00 Test Item Value Reference Range Comments POC-GLUCOSE METER (BEAKER) 120 mg/dL 70-110 TESTED AT [address] (test lkgj=6769) [facility] [address] BASIC METABOLIC [id number] 06:26:00 Test Item Value Reference Range Comments SODIUM (BEAKER) (test 135 meq/L 136-145 uiig=543) POTASSIUM (BEAKER) (test 4.3 meq/L 3.5-5.1 ncnl=605) CHLORIDE (BEAKER) (test 102 meq/L 98-107 xlol=474) CO2 (BEAKER) (test 26 meq/L 22-29 vsrq=285) BLOOD UREA NITROGEN 17 mg/dL 7-21 (BEAKER) (test tmyp=399) CREATININE (BEAKER) (test 1.04 mg/dL 0.57-1.25 ordp=036) GLUCOSE RANDOM (BEAKER) 97 mg/dL 70-105 (test dtlv=301) CALCIUM (BEAKER) (test 8.9 mg/dL 8.4-10.2 buok=078) EGFR (BEAKER) (test 86 mL/min/1.73 sq m ESTIMATED GFR IS NOT eokc=8553) ACCURATE CREATININE CLEARANCE IN PREDICTING GLOMERULAR FILTRATION RATE. ESTIMATED GFR IS NOT APPLICABLE FOR DIALYSIS PATIENTS. CBC W/PLT COUNT & AUTO [id number] 05:36:00 Test Item Value Reference Range Comments WHITE BLOOD CELL COUNT (BEAKER) (test gpzn=182) 6.7 K/ L 3.5-10.5 RED BLOOD CELL COUNT (BEAKER) (test piak=271) 3.07 M/ L 4.63-6.08 HEMOGLOBIN (BEAKER) (test pral=961) 8.8 GM/DL 13.7-17.5 HEMATOCRIT (BEAKER) (test tkpd=278) 28.3 % 40.1-51.0 MEAN CORPUSCULAR VOLUME (BEAKER) (test obxa=559) 92.2 fL 79.0-92.2 MEAN CORPUSCULAR HEMOGLOBIN (BEAKER) (test 28.7 pg 25.7-32.2 olou=937) MEAN CORPUSCULAR HEMOGLOBIN CONC (BEAKER) (test 31.1 GM/DL 32.3-36.5 iics=312) RED CELL DISTRIBUTION WIDTH (BEAKER) (test 14.1 % 11.6-14.4 nakc=942) PLATELET COUNT (BEAKER) (test qddl=559) 224 K/CU MM 150-450 MEAN PLATELET VOLUME (BEAKER) (test uhrg=849) 12.1 fL 9.4-12.4 NUCLEATED RED BLOOD CELLS (BEAKER) (test 0 /100 WBC 0-0 psrz=280) NEUTROPHILS RELATIVE PERCENT (BEAKER) (test 69 % ybrk=719) LYMPHOCYTES RELATIVE PERCENT (BEAKER) (test 17 % qdot=413) MONOCYTES RELATIVE PERCENT (BEAKER) (test 10 % ntci=495) EOSINOPHILS RELATIVE PERCENT (BEAKER) (test 3 % iwyl=789) BASOPHILS RELATIVE PERCENT (BEAKER) (test 0 % jyeh=504) NEUTROPHILS ABSOLUTE COUNT (BEAKER) (test 4.58 K/ L 1.78-5.38 lest=042) LYMPHOCYTES ABSOLUTE COUNT (BEAKER) (test 1.15 K/ L 1.32-3.57 pwfm=037) MONOCYTES ABSOLUTE COUNT (BEAKER) (test 0.69 K/ L 0.30-0.82 fsyd=317) EOSINOPHILS ABSOLUTE COUNT (BEAKER) (test 0.19 K/ L 0.04-0.54 wece=359) BASOPHILS ABSOLUTE COUNT (BEAKER) (test 0.03 K/ L 0.01-0.08 xcgm=203) IMMATURE GRANULOCYTES-RELATIVE PERCENT (BEAKER) 1 % 0-1 (test nlyf=0554) RAD, SHOULDER, COMPLETE (MIN 2 VIEWS), [id number] 21:27:00Reason for exam:-& gt;left shoulder painFINAL REPORT Technique: Multiple views of the left shoulder FINDINGS: Exam somewhat limited for the assessment of dislocation is a Y view is not submitted. No definite fracture or dislocation seen. Degenerative changes at the AC joint and glenohumeral joints noted. Signed: Nikolas Fernández MDReport Verified Date/Time: 01/08/2018 21:27:28 Reading Location: [facility] C013W Consult Reading Room POCT-GLUCOSE [id number] 21:16: 00 Test Item Value Reference Range Comments POC-GLUCOSE METER (BEAKER) 197 mg/dL 70-110 TESTED AT [facility] [address] [facility] (test nrbx=0229) [facility] [address] BODY FLUID CELL COUNT WITH [id number] 19:48:00 Test Item Value Reference Range Comments APPEARANCE FLUID (BEAKER) (test picd=783) Bloody Clear COLOR FLUID (BEAKER) (test kvbx=520) Red Colorless, Straw RBC FLUID (BEAKER) (test bgch=946453) 3054812 /cu mm <=1 ADJUSTED WBC FLUID (BEAKER) (test obar=8584) 2068 /cu mm <=5 LINING CELLS (BEAKER) (test jvig=1178) 62 /cu mm <=1 NEUTROPHILS FLUID (BEAKER) (test qibd=2604) 8 % LYMPHS FLUID (BEAKER) (test qxho=182) 37 % MONO/MACROPHAGE FLUID (BEAKER) (test 53 % eodf=439) EOSINOPHILS FLUID (BEAKER) (test okju=811) 2 % BASO FLUID (BEAKER) (test kxhz=176) 0 % CONTAINER BODY FLUID (BEAKER) (test EDTA Tube mvnl=8481) ALBUMIN, BODY [id number] 19:23:00 Test Item Value Reference Range Comments ALBUMIN FLUID (BEAKER) (test txze=849) 2.3 gm/dL Reference Range: No Normals Assay performance has not been validated for this type of specimen.LACTATE DEHYDROGENASE (LDH), BODY [id number] 19:23:00 Test Item Value Reference Range Comments LACTATE DEHYDROGENASE FLUID (BEAKER) (test ihsg=301) 595 U/L Absence of reference range indicates that normals have not been defined.Assay performance has not been validated for this type of specimen.PROTEIN, BODY [id number] 19:23:00 Test Item Value Reference Range Comments PROTEIN FLUID (BEAKER) (test euoi=501) 3.8 g/dL Absence of reference range indicates that normals have not been defined.Assay performance has not been validated for this type of specimen.GLUCOSE, BODY [id number] 19:23:00 Test Item Value Reference Range Comments GLUCOSE, BODY FLUID (BEAKER) (test bgkb=4775) 111 mg/dL Absence of reference range indicates that normals have not been defined.Assay performance has not been validated for this type of specimen.PH, BODY [id number] 19:07:00 Test Item Value Reference Range Comments PH, BODY FLUID (BEAKER) (test oezm=7385) 7.58 POCT-GLUCOSE [id number] 18:31:00 Test Item Value Reference Range Comments POC-GLUCOSE METER (BEAKER) 116 mg/dL 70-110 TESTED AT [address] (test eees=0451) [place] [address] RAD, CHEST, 1 VIEW, NON [id number] 17:51:00Reason for exam:->s/p left thoracentesisShould this be performed at the bedside?->YesFINAL REPORT Chest, one view. HISTORY: Thoracentesis COMPARISON: 2017 IMPRESSION: Interval resolution of moderate left pleural effusion. No identifiable pneumothorax. Unchanged enlargement of the cardiomediastinal silhouette with mild interstitial edema. Intact median sternotomy wires. Signed : Hawk Whaley MDReport Verified Date/Time: 01/08/2018 17:51:49 Reading Location: [address] Ultrasound Reading Room POCT-GLUCOSE [id number] 12:25: 00 Test Item Value Reference Range Comments POC-GLUCOSE METER (BEAKER) 117 mg/dL 70-110 TESTED AT [address] (test kemr=1002) [place] [id number] POCT-GLUCOSE [id number] 08:05:00 Test Item Value Reference Range Comments POC-GLUCOSE METER (BEAKER) 117 mg/dL 70-110 TESTED AT [address] (test ixtv=5716) [place] [id number] PROTEIN, [id number] 05:59:00 Test Item Value Reference Range Comments TOTAL PROTEIN (BEAKER) (test lxhr=867) 6.6 gm/dL 6.0-8.3 BASIC METABOLIC [id number] 05:59:00 Test Item Value Reference Range Comments SODIUM (BEAKER) (test 135 meq/L 136-145 wden=021) POTASSIUM (BEAKER) (test 4.5 meq/L 3.5-5.1 uprh=926) CHLORIDE (BEAKER) (test 102 meq/L 98-107 ztxf=679) CO2 (BEAKER) (test 25 meq/L 22-29 zcwt=100) BLOOD UREA NITROGEN 15 mg/dL 7-21 (BEAKER) (test kygb=462) CREATININE (BEAKER) (test 1.01 mg/dL 0.57-1.25 uruh=403) GLUCOSE RANDOM (BEAKER) 95 mg/dL 70-105 (test jzan=573) CALCIUM (BEAKER) (test 9.2 mg/dL 8.4-10.2 utrf=749) EGFR (BEAKER) (test 89 mL/min/1.73 sq m ESTIMATED GFR IS NOT cqww=0979) ACCURATE CREATININE CLEARANCE IN PREDICTING GLOMERULAR FILTRATION RATE. ESTIMATED GFR IS NOT APPLICABLE FOR DIALYSIS PATIENTS. [id number] 05:59:00 Test Item Value Reference Range Comments ALBUMIN (BEAKER) (test lmxs=4615) 3.2 g/dL 3.5-5.0 LACTATE DEHYDROGENASE (LDH)2018-01-08 05:59:00 Test Item Value Reference Range Comments LACTATE DEHYDROGENASE (BEAKER) (test imbg=934) 289 U/L 125-220 PROTHROMBIN TIME/[id number] 05:27:00 Test Item Value Reference Range Comments PROTIME (BEAKER) (test jcur=044) 14.3 seconds 11.7-14.7 INR (BEAKER) (test xbok=395) 1.1 <=5.9 RECOMMENDED COUMADIN/WARFARIN INR THERAPY RANGESSTANDARD DOSE: 2.0 - 3.0 Includes: PROPHYLAXIS forvenous thrombosis, systemic embolization; TREATMENT for venous thrombosis and/or pulmonary embolus.HIGH RISK: Target INR is 2.5-3.5 for patients with mechanical heart valves.PT/[id number] 05:27:00 Test Item Value Reference Range Comments PROTIME (BEAKER) (test vjkd=014) 14.3 seconds 11.7-14.7 INR (BEAKER) (test eiaj=646) 1.1 <=5.9 PARTIAL THROMBOPLASTIN TIME (BEAKER) (test 33.3 seconds 22.5-36.0 lwkl=643) RECOMMENDED COUMADIN/WARFARIN INR THERAPY RANGESSTANDARD DOSE: 2.0 - 3.0 Includes: PROPHYLAXIS forvenous thrombosis, systemic embolization; TREATMENT for venous thrombosis and/or pulmonary embolus.HIGH RISK: Target INR is 2.5-3.5 for patients with mechanical heart valves.CBC W/PLT COUNT & AUTO [id number] 05:15:00 Test Item Value Reference Range Comments WHITE BLOOD CELL COUNT (BEAKER) (test xkeg=162) 7.2 K/ L 3.5-10.5 RED BLOOD CELL COUNT (BEAKER) (test ngan=342) 3.01 M/ L 4.63-6.08 HEMOGLOBIN (BEAKER) (test rnht=147) 8.5 GM/DL 13.7-17.5 HEMATOCRIT (BEAKER) (test czno=001) 27.0 % 40.1-51.0 MEAN CORPUSCULAR VOLUME (BEAKER) (test wrhg=871) 89.7 fL 79.0-92.2 MEAN CORPUSCULAR HEMOGLOBIN (BEAKER) (test 28.2 pg 25.7-32.2 fjgb=540) MEAN CORPUSCULAR HEMOGLOBIN CONC (BEAKER) (test 31.5 GM/DL 32.3-36.5 xtmq=182) RED CELL DISTRIBUTION WIDTH (BEAKER) (test 14.1 % 11.6-14.4 srrx=237) PLATELET COUNT (BEAKER) (test kipz=191) 217 K/CU MM 150-450 MEAN PLATELET VOLUME (BEAKER) (test qfbk=177) 12.1 fL 9.4-12.4 NUCLEATED RED BLOOD CELLS (BEAKER) (test 0 /100 WBC 0-0 sinw=219) NEUTROPHILS RELATIVE PERCENT (BEAKER) (test 75 % zclk=091) LYMPHOCYTES RELATIVE PERCENT (BEAKER) (test 12 % vpqo=386) MONOCYTES RELATIVE PERCENT (BEAKER) (test 10 % omcq=939) EOSINOPHILS RELATIVE PERCENT (BEAKER) (test 3 % pvzx=622) BASOPHILS RELATIVE PERCENT (BEAKER) (test 0 % uiqw=764) NEUTROPHILS ABSOLUTE COUNT (BEAKER) (test 5.39 K/ L 1.78-5.38 yyhw=412) LYMPHOCYTES ABSOLUTE COUNT (BEAKER) (test 0.90 K/ L 1.32-3.57 fulf=276) MONOCYTES ABSOLUTE COUNT (BEAKER) (test 0.70 K/ L 0.30-0.82 hmau=016) EOSINOPHILS ABSOLUTE COUNT (BEAKER) (test 0.19 K/ L 0.04-0.54 qrbt=861) BASOPHILS ABSOLUTE COUNT (BEAKER) (test 0.02 K/ L 0.01-0.08 gmtd=556) IMMATURE GRANULOCYTES-RELATIVE PERCENT (BEAKER) 0 % 0-1 (test ftmi=2717) POCT-GLUCOSE [id number] 21:13:00 Test Item Value Reference Range Comments POC-GLUCOSE METER (BEAKER) 180 mg/dL 70-110 TESTED AT [facility] [address] [place] [address] (test dlsn=5782) [facility] [address] CT, CHEST, WITH [id number] 18:26:00Reason for exam:->evaluate left pl effusionWhat is the patient's sedation requirement?->No SedationFINAL REPORT INDICATION: 67-year-old male with left pleural effusion. COMPARISON:Chest radiograph January 07, 2018 TECHNIQUE: Chest CT exam WITH intravenous contrast. The exam was performed according to our department dose-optimization protocol, which includes automated exposure control, adjustments of mA and kV according to patient size. Iterative reconstructions are also sometimes employed. FINDINGS:There is a small layering low density left pleural effusion associated with partial collapse of the left lower lobe. In the left anterior pleura there is loculated fluid with several foci of air likely from recent thoracentesis. Tiny right posterior layering pleural effusion alsonoted. Patient is status post recent median sternotomy [...] coronary artery bypass surgery. Signed: Tod Britt MDReport Verified Date/Time: 01/07/2018 18:26:42 Reading Location: [facility] B1 C013Y CT Body Reading Room POCT-GLUCOSE [id number] 17:47:00 Test Item Value Reference Range Comments POC-GLUCOSE METER (BEAKER) 117 mg/dL 70-110 TESTED AT [address] (test qmeu=5296) [facility] [address] POCT-GLUCOSE [id number] 12:18:00 Test Item Value Reference Range Comments POC-GLUCOSE METER (BEAKER) 105 mg/dL 70-110 TESTED AT [address] (test hciy=6039) [facility] [address] POCT-GLUCOSE [id number] 08:47:00 Test Item Value Reference Range Comments POC-GLUCOSE METER (BEAKER) 127 mg/dL 70-110 TESTED AT [address] (test jsbc=7654) [facility] [address] RAD, CHEST, 1 VIEW, NON [id number] 08:14:00Reason for exam:->L effusionShould this be performed at the bedside?->YesFINAL REPORT Chest one view INDICATION: Left effusion COMPARISON: 01/06/2018 IMPRESSION: A dependent left pleural effusion is grossly unchanged with mid to lower lung consolidation or atelectasis. Other mixed interstitial and ground glass opacities may reflect edema or atypical pneumonitis. The cardiomediastinal contours are stable with median sternotomy changes. No pneumothoraxis seen. Signed: Lindsey Wheat [facility] Verified Date/Time: 01/07/2018 08:14:36 Reading [facility] Radiology Reading Room BASIC METABOLIC [id number] 05:32:00 Test Item Value Reference Range Comments SODIUM (BEAKER) (test 131 meq/L 136-145 gnxv=024) POTASSIUM (BEAKER) (test 3.8 meq/L 3.5-5.1 dvkz=770) CHLORIDE (BEAKER) (test 101 meq/L 98-107 gibg=389) CO2 (BEAKER) (test 27 meq/L 22-29 gssc=352) BLOOD UREA NITROGEN 11 mg/dL 7-21 (BEAKER) (test wybu=955) CREATININE (BEAKER) (test 0.91 mg/dL 0.57-1.25 nugg=729) GLUCOSE RANDOM (BEAKER) 93 mg/dL 70-105 (test tmyg=392) CALCIUM (BEAKER) (test 9.2 mg/dL 8.4-10.2 jxkg=387) EGFR (BEAKER) (test 101 mL/min/1.73 sq m ESTIMATED GFR IS NOT fmig=2222) ACCURATE CREATININE CLEARANCE IN PREDICTING GLOMERULAR FILTRATION RATE. ESTIMATED GFR IS NOT APPLICABLE FOR DIALYSIS PATIENTS. POCT-GLUCOSE [id number] 21:10:00 Test Item Value Reference Range Comments POC-GLUCOSE METER (BEAKER) 124 mg/dL 70-110 TESTED AT [address] (test uszl=6600) [place] [address] POCT-GLUCOSE [id number] 18:05:00 Test Item Value Reference Range Comments POC-GLUCOSE METER (BEAKER) 138 mg/dL 70-110 TESTED AT [address] (test tumh=3756) [place] [address] RAD, CHEST, 1 VIEW, NON [id number] 11:00:00Reason for exam:->L effusionShould this be performed at the bedside?->YesFINAL REPORT Chest, one view. HISTORY: Left effusion COMPARISON: 01/05/2018 IMPRESSION: No significant change. Persistent patchy opacities in the mid to lower left lung with adjacent trace left pleural effusion. Unchanged moderate interstitial edema and enlargement of the cardiomediastinal silhouette. No identifiable pneumothorax. Signed: Hawk Whaley MDReport Verified Date/Time: 11:00:40 Reading Location: [facility] C013Y CT Body Reading Room POCT- GLUCOSE [id number] 08:06:00 Test Item Value Reference Range Comments POC-GLUCOSE METER (BEAKER) 102 mg/dL 70-110 TESTED AT [address] (test vgam=4859) [place] [address] [id number] 04:53:00 Test Item Value Reference Range Comments MAGNESIUM (BEAKER) (test qcyu=220) 2.0 mg/dL 1.6-2.6 BASIC METABOLIC [id number] 04:53:00 Test Item Value Reference Range Comments SODIUM (BEAKER) (test 137 meq/L 136-145 bsfh=876) POTASSIUM (BEAKER) (test 3.9 meq/L 3.5-5.1 difc=092) CHLORIDE (BEAKER) (test 102 meq/L 98-107 tott=283) CO2 (BEAKER) (test 26 meq/L 22-29 bqby=449) BLOOD UREA NITROGEN 14 mg/dL 7-21 (BEAKER) (test qsua=898) CREATININE (BEAKER) (test 0.96 mg/dL 0.57-1.25 tnxp=032) GLUCOSE RANDOM (BEAKER) 98 mg/dL 70-105 (test veea=583) CALCIUM (BEAKER) (test 8.8 mg/dL 8.4-10.2 xlqm=701) EGFR (BEAKER) (test 95 mL/min/1.73 sq m ESTIMATED GFR IS NOT sekv=3788) ACCURATE CREATININE CLEARANCE IN PREDICTING GLOMERULAR FILTRATION RATE. ESTIMATED GFR IS NOT APPLICABLE FOR DIALYSIS PATIENTS. CBC W/PLT COUNT & AUTO [id number] 04:25:00 Test Item Value Reference Range Comments WHITE BLOOD CELL COUNT (BEAKER) (test avbq=026) 6.3 K/ L 3.5-10.5 RED BLOOD CELL COUNT (BEAKER) (test cmql=094) 3.03 M/ L 4.63-6.08 HEMOGLOBIN (BEAKER) (test smxx=533) 8.7 GM/DL 13.7-17.5 HEMATOCRIT (BEAKER) (test idsp=520) 27.1 % 40.1-51.0 MEAN CORPUSCULAR VOLUME (BEAKER) (test meqp=803) 89.4 fL 79.0-92.2 MEAN CORPUSCULAR HEMOGLOBIN (BEAKER) (test 28.7 pg 25.7-32.2 urvk=206) MEAN CORPUSCULAR HEMOGLOBIN CONC (BEAKER) (test 32.1 GM/DL 32.3-36.5 wwwq=294) RED CELL DISTRIBUTION WIDTH (BEAKER) (test 13.6 % 11.6-14.4 qium=581) PLATELET COUNT (BEAKER) (test ofdo=097) 169 K/CU MM 150-450 MEAN PLATELET VOLUME (BEAKER) (test cpzb=051) 12.0 fL 9.4-12.4 NUCLEATED RED BLOOD CELLS (BEAKER) (test 0 /100 WBC 0-0 engd=984) NEUTROPHILS RELATIVE PERCENT (BEAKER) (test 67 % jenm=124) LYMPHOCYTES RELATIVE PERCENT (BEAKER) (test 18 % fbqv=862) MONOCYTES RELATIVE PERCENT (BEAKER) (test 11 % yrlq=803) EOSINOPHILS RELATIVE PERCENT (BEAKER) (test 4 % wipq=812) BASOPHILS RELATIVE PERCENT (BEAKER) (test 0 % lehq=800) NEUTROPHILS ABSOLUTE COUNT (BEAKER) (test 4.25 K/ L 1.78-5.38 cxdk=676) LYMPHOCYTES ABSOLUTE COUNT (BEAKER) (test 1.10 K/ L 1.32-3.57 iazv=649) MONOCYTES ABSOLUTE COUNT (BEAKER) (test 0.68 K/ L 0.30-0.82 xuhx=006) EOSINOPHILS ABSOLUTE COUNT (BEAKER) (test 0.22 K/ L 0.04-0.54 xuyk=487) BASOPHILS ABSOLUTE COUNT (BEAKER) (test 0.01 K/ L 0.01-0.08 dsnn=773) IMMATURE GRANULOCYTES-RELATIVE PERCENT (BEAKER) 1 % 0-1 (test vifi=5714) POCT-GLUCOSE [id number] 21:14:00 Test Item Value Reference Range Comments POC-GLUCOSE METER (BEAKER) 147 mg/dL 70-110 TESTED AT [place] [id number] [facility] (test cwml=9797) [facility] [address] RAD, CHEST, 1 VIEW, NON [id number] 09:09:00Reason for exam:->L effusionShould this be performed at the bedside?->YesFINAL REPORT Chest, one view. HISTORY: Effusion COMPARISON: 01/03/2018 IMPRESSION : Unchanged patchy opacities in the left mid to lower lung with adjacent trace left pleural effusion. Unchanged moderate interstitial edema and enlargement of the cardiomediastinal silhouette. No identifiable pneumothorax. Signed: Hawk Whaley MDReport Verified Date/Time: 01/05/2018 09:09:30 Reading Location: [facility] C013Y CT Body Reading Room Electronically signed by: HAWK WHALEY MD 01/05/2018 09:09 [id number] 07:24:00 Test Item Value Reference Range Comments MAGNESIUM (BEAKER) (test ipvt=633) 2.1 mg/dL 1.6-2.6 BASIC METABOLIC [id number] 07:24:00 Test Item Value Reference Range Comments SODIUM (BEAKER) (test 136 meq/L 136-145 fhkt=563) POTASSIUM (BEAKER) (test 3.8 meq/L 3.5-5.1 lzxo=220) CHLORIDE (BEAKER) (test 101 meq/L 98-107 ilmh=183) CO2 (BEAKER) (test 29 meq/L 22-29 zhjn=423) BLOOD UREA NITROGEN 12 mg/dL 7-21 (BEAKER) (test vdte=250) CREATININE (BEAKER) (test 0.94 mg/dL 0.57-1.25 tosl=715) GLUCOSE RANDOM (BEAKER) 96 mg/dL 70-105 (test gozj=256) CALCIUM (BEAKER) (test 9.1 mg/dL 8.4-10.2 rnqd=300) EGFR (BEAKER) (test 97 mL/min/1.73 sq m ESTIMATED GFR IS NOT bafx=8806) ACCURATE CREATININE CLEARANCE IN PREDICTING GLOMERULAR FILTRATION RATE. ESTIMATED GFR IS NOT APPLICABLE FOR DIALYSIS PATIENTS. CBC W/PLT COUNT & AUTO [id number] 07:01:00 Test Item Value Reference Range Comments WHITE BLOOD CELL COUNT (BEAKER) (test rreo=919) 6.3 K/ L 3.5-10.5 RED BLOOD CELL COUNT (BEAKER) (test areb=770) 3.02 M/ L 4.63-6.08 HEMOGLOBIN (BEAKER) (test rwqo=409) 8.7 GM/DL 13.7-17.5 HEMATOCRIT (BEAKER) (test muew=425) 27.4 % 40.1-51.0 MEAN CORPUSCULAR VOLUME (BEAKER) (test bbtf=388) 90.7 fL 79.0-92.2 MEAN CORPUSCULAR HEMOGLOBIN (BEAKER) (test 28.8 pg 25.7-32.2 lgur=512) MEAN CORPUSCULAR HEMOGLOBIN CONC (BEAKER) (test 31.8 GM/DL 32.3-36.5 bzkq=769) RED CELL DISTRIBUTION WIDTH (BEAKER) (test 13.8 % 11.6-14.4 eirn=446) PLATELET COUNT (BEAKER) (test cexp=094) 161 K/CU MM 150-450 MEAN PLATELET VOLUME (BEAKER) (test heia=683) 12.2 fL 9.4-12.4 NUCLEATED RED BLOOD CELLS (BEAKER) (test 0 /100 WBC 0-0 jkny=057) NEUTROPHILS RELATIVE PERCENT (BEAKER) (test 74 % ecox=148) LYMPHOCYTES RELATIVE PERCENT (BEAKER) (test 12 % hsyt=813) MONOCYTES RELATIVE PERCENT (BEAKER) (test 10 % rvfe=929) EOSINOPHILS RELATIVE PERCENT (BEAKER) (test 3 % exet=215) BASOPHILS RELATIVE PERCENT (BEAKER) (test 0 % duih=899) NEUTROPHILS ABSOLUTE COUNT (BEAKER) (test 4.65 K/ L 1.78-5.38 rhrl=419) LYMPHOCYTES ABSOLUTE COUNT (BEAKER) (test 0.74 K/ L 1.32-3.57 uuuy=186) MONOCYTES ABSOLUTE COUNT (BEAKER) (test 0.65 K/ L 0.30-0.82 doqu=584) EOSINOPHILS ABSOLUTE COUNT (BEAKER) (test 0.17 K/ L 0.04-0.54 oegq=935) BASOPHILS ABSOLUTE COUNT (BEAKER) (test 0.01 K/ L 0.01-0.08 edfq=776) IMMATURE GRANULOCYTES-RELATIVE PERCENT (BEAKER) 1 % 0-1 (test nnjx=5200) POCT-GLUCOSE [id number] 22:13:00 Test Item Value Reference Range Comments POC-GLUCOSE METER (BEAKER) 168 mg/dL 70-110 TESTED AT [address] (test aqmm=0315) [facility] [address] POCT-GLUCOSE [id number] 18:09:00 Test Item Value Reference Range Comments POC-GLUCOSE METER (BEAKER) 119 mg/dL 70-110 TESTED AT [address] (test vkys=3872) [facility] [address] POCT-GLUCOSE [id number] 12:32:00 Test Item Value Reference Range Comments POC-GLUCOSE METER (BEAKER) 128 mg/dL 70-110 TESTED AT [address] (test yyni=0348) [facility] [address] POCT-GLUCOSE [id number] 08:15:00 Test Item Value Reference Range Comments POC-GLUCOSE METER (BEAKER) 107 mg/dL 70-110 TESTED AT [facility] [address] [facility] [facility] (test qrux=0477) [facility] [address] [id number] 03:56:00 Test Item Value Reference Range Comments MAGNESIUM (BEAKER) (test xspk=094) 2.2 mg/dL 1.6-2.6 BASIC METABOLIC [id number] 03:56:00 Test Item Value Reference Range Comments SODIUM (BEAKER) (test 136 meq/L 136-145 bjuu=149) POTASSIUM (BEAKER) (test 3.9 meq/L 3.5-5.1 bykh=111) CHLORIDE (BEAKER) (test 103 meq/L 98-107 yjfe=344) CO2 (BEAKER) (test 27 meq/L 22-29 nipw=062) BLOOD UREA NITROGEN 16 mg/dL 7-21 (BEAKER) (test qeqk=891) CREATININE (BEAKER) (test 0.97 mg/dL 0.57-1.25 fspb=085) GLUCOSE RANDOM (BEAKER) 100 mg/dL 70-105 (test wslb=170) CALCIUM (BEAKER) (test 8.4 mg/dL 8.4-10.2 zeag=519) EGFR (BEAKER) (test 94 mL/min/1.73 sq m ESTIMATED GFR IS NOT jqst=8455) ACCURATE CREATININE CLEARANCE IN PREDICTING GLOMERULAR FILTRATION RATE. ESTIMATED GFR IS NOT APPLICABLE FOR DIALYSIS PATIENTS. CBC W/PLT COUNT & AUTO [id number] 03:40:00 Test Item Value Reference Range Comments WHITE BLOOD CELL COUNT (BEAKER) (test crpy=185) 6.3 K/ L 3.5-10.5 RED BLOOD CELL COUNT (BEAKER) (test ffme=638) 2.61 M/ L 4.63-6.08 HEMOGLOBIN (BEAKER) (test dacv=371) 7.5 GM/DL 13.7-17.5 HEMATOCRIT (BEAKER) (test sewk=472) 23.1 % 40.1-51.0 MEAN CORPUSCULAR VOLUME (BEAKER) (test fsur=640) 88.5 fL 79.0-92.2 MEAN CORPUSCULAR HEMOGLOBIN (BEAKER) (test 28.7 pg 25.7-32.2 zcjo=534) MEAN CORPUSCULAR HEMOGLOBIN CONC (BEAKER) (test 32.5 GM/DL 32.3-36.5 wkfu=923) RED CELL DISTRIBUTION WIDTH (BEAKER) (test 13.8 % 11.6-14.4 ohcb=639) PLATELET COUNT (BEAKER) (test bbjk=895) 108 K/CU MM 150-450 MEAN PLATELET VOLUME (BEAKER) (test npto=647) 12.2 fL 9.4-12.4 NUCLEATED RED BLOOD CELLS (BEAKER) (test 0 /100 WBC 0-0 eert=690) NEUTROPHILS RELATIVE PERCENT (BEAKER) (test 69 % fasj=867) LYMPHOCYTES RELATIVE PERCENT (BEAKER) (test 16 % ofsr=585) MONOCYTES RELATIVE PERCENT (BEAKER) (test 10 % txxp=022) EOSINOPHILS RELATIVE PERCENT (BEAKER) (test 4 % zrzx=838) BASOPHILS RELATIVE PERCENT (BEAKER) (test 0 % gpfj=332) NEUTROPHILS ABSOLUTE COUNT (BEAKER) (test 4.34 K/ L 1.78-5.38 hnkp=791) LYMPHOCYTES ABSOLUTE COUNT (BEAKER) (test 0.99 K/ L 1.32-3.57 exze=110) MONOCYTES ABSOLUTE COUNT (BEAKER) (test 0.65 K/ L 0.30-0.82 prft=892) EOSINOPHILS ABSOLUTE COUNT (BEAKER) (test 0.25 K/ L 0.04-0.54 odxn=296) BASOPHILS ABSOLUTE COUNT (BEAKER) (test 0.01 K/ L 0.01-0.08 lxnf=537) IMMATURE GRANULOCYTES-RELATIVE PERCENT (BEAKER) 0 % 0-1 (test ezxi=7352) POCT-GLUCOSE [id number] 22:17:00 Test Item Value Reference Range Comments POC-GLUCOSE METER (BEAKER) 133 mg/dL 70-110 TESTED AT [address] (test qrxo=7234) [place] [id number] POCT-GLUCOSE [id number] 18:41:00 Test Item Value Reference Range Comments POC-GLUCOSE METER (BEAKER) 132 mg/dL 70-110 TESTED AT [address] (test kbeo=3576) [place] [id number] LACTIC ACID, VENOUS, WHOLE [id number] 16:56:00 Test Item Value Reference Range Comments LACTATE BLOOD VENOUS (2) (BEAKER) (test 1.1 mmol/L 0.5-2.2 pzuz=9788) Effective 10/13/2015: Units/Reference Range ChangeNew: 0.5-2.2 mmol/L Previous: 5 -20 mg/dLHEMOGLOBIN AND [id number] 16:49:00 Test Item Value Reference Range Comments HEMOGLOBIN (BEAKER) (test dyzf=339) 7.7 GM/DL 13.7-17.5 HEMATOCRIT (BEAKER) (test kkyt=008) 24.7 % 40.1-51.0 CBC (HEMOGRAM ONLY)2018-01-03 09:40:00 Test Item Value Reference Range Comments WHITE BLOOD CELL COUNT (BEAKER) (test alzd=490) 7.6 K/ L 3.5-10.5 RED BLOOD CELL COUNT (BEAKER) (test gxpq=590) 2.59 M/ L 4.63-6.08 HEMOGLOBIN (BEAKER) (test qrgp=915) 7.4 GM/DL 13.7-17.5 HEMATOCRIT (BEAKER) (test fosa=318) 23.4 % 40.1-51.0 MEAN CORPUSCULAR VOLUME (BEAKER) (test jiep=047) 90.3 fL 79.0-92.2 MEAN CORPUSCULAR HEMOGLOBIN (BEAKER) (test 28.6 pg 25.7-32.2 psss=499) MEAN CORPUSCULAR HEMOGLOBIN CONC (BEAKER) (test 31.6 GM/DL 32.3-36.5 zwkm=803) RED CELL DISTRIBUTION WIDTH (BEAKER) (test 14.2 % 11.6-14.4 vwgs=791) PLATELET COUNT (BEAKER) (test kalt=651) 96 K/CU MM 150-450 MEAN PLATELET VOLUME (BEAKER) (test cnfo=662) 12.8 fL 9.4-12.4 NUCLEATED RED BLOOD CELLS (BEAKER) (test 0 /100 WBC 0-0 qddy=731) RAD, CHEST, 1 VIEW, NON [id number] 04:24:00Reason for exam:->s/p cardiac surgeryShould this be performed at the bedside?->YesFINAL REPORT RAD, CHEST, 1 VIEW, NON DEPT INDICATION: s/p cardiac surgery COMPARISON: Prior day's exam FINDINGS: Portable frontal view of the chest. IMPRESSION: Support Lines:Interval removal of the right IJ central venous catheter and the left sided chest tube. Lungs and pleura: Increased bilateral lower lobe and retrocardiac pulmonary opacities may represent atelectasis in the setting of low lung volumes. Unchanged small left greater than right pleural effusions. No pneumothorax.Heart and mediastinum: Stable contours. Stable surgical changes.Additional findings: None. Signed: Breezy Torres MDReport Verified Date/Time: 01/03/2018 04:24:29 Reading Location: [address] Transitional Reading Room 04:24 [id number] 03:43:00 Test Item Value Reference Range Comments PHOSPHORUS (BEAKER) (test prio=762) 2.6 mg/dL 2.3-4.7 [id number] 03:43:00 Test Item Value Reference Range Comments MAGNESIUM (BEAKER) (test kjxa=374) 1.9 mg/dL 1.6-2.6 BASIC METABOLIC [id number] 03:43:00 Test Item Value Reference Range Comments SODIUM (BEAKER) (test 136 meq/L 136-145 ivjn=720) POTASSIUM (BEAKER) (test 3.7 meq/L 3.5-5.1 cwpz=568) CHLORIDE (BEAKER) (test 103 meq/L 98-107 qyaa=477) CO2 (BEAKER) (test 27 meq/L 22-29 mfal=094) BLOOD UREA NITROGEN 16 mg/dL 7-21 (BEAKER) (test fzay=657) CREATININE (BEAKER) (test 0.92 mg/dL 0.57-1.25 dnhk=938) GLUCOSE RANDOM (BEAKER) 106 mg/dL 70-105 (test rova=913) CALCIUM (BEAKER) (test 8.7 mg/dL 8.4-10.2 lxxi=573) EGFR (BEAKER) (test 99 mL/min/1.73 sq m ESTIMATED GFR IS NOT uwdp=2600) ACCURATE CREATININE CLEARANCE IN PREDICTING GLOMERULAR FILTRATION RATE. ESTIMATED GFR IS NOT APPLICABLE FOR DIALYSIS PATIENTS. HEPATIC FUNCTION [id number] 03:43:00 Test Item Value Reference Range Comments TOTAL PROTEIN (BEAKER) (test wfew=770) 5.8 gm/dL 6.0-8.3 ALBUMIN (BEAKER) (test rflb=5218) 3.1 g/dL 3.5-5.0 BILIRUBIN TOTAL (BEAKER) (test ggfn=064) 0.9 mg/dL 0.2-1.2 BILIRUBIN DIRECT (BEAKER) (test tkuv=770) 0.5 mg/dL 0.1-0.5 ALKALINE PHOSPHATASE (BEAKER) (test zhov=210) 47 U/L 40-150 AST (SGOT) (BEAKER) (test jkyk=230) 23 U/L 5-34 ALT (SGPT) (BEAKER) (test xcon=416) 8 U/L 6-55 PROTHROMBIN [id number] 03:36:00 Test Item Value Reference Range Comments PROTIME (BEAKER) (test orqz=929) 14.3 seconds 11.7-14.7 INR (BEAKER) (test sxkx=343) 1.1 <=5.9 RECOMMENDED COUMADIN/WARFARIN INR THERAPY RANGESSTANDARD DOSE: 2.0 - 3.0 Includes: PROPHYLAXIS forvenous thrombosis, systemic embolization; TREATMENT for venous thrombosis and/or pulmonary embolus.HIGH RISK: Target INR is 2.5-3.5 for patients with mechanical heart valves.[id number] 03:36:00 Test Item Value Reference Range Comments PARTIAL THROMBOPLASTIN TIME (BEAKER) (test 32.0 seconds 22.5-36.0 gpzx=784) CBC W/PLT COUNT & AUTO [id number] 03:26:00 Test Item Value Reference Range Comments WHITE BLOOD CELL COUNT (BEAKER) (test lgnc=225) 8.5 K/ L 3.5-10.5 RED BLOOD CELL COUNT (BEAKER) (test zxgi=023) 2.82 M/ L 4.63-6.08 HEMOGLOBIN (BEAKER) (test tjwx=308) 7.9 GM/DL 13.7-17.5 HEMATOCRIT (BEAKER) (test ijdj=858) 25.4 % 40.1-51.0 MEAN CORPUSCULAR VOLUME (BEAKER) (test nqgi=101) 90.1 fL 79.0-92.2 MEAN CORPUSCULAR HEMOGLOBIN (BEAKER) (test 28.0 pg 25.7-32.2 uwlp=998) MEAN CORPUSCULAR HEMOGLOBIN CONC (BEAKER) (test 31.1 GM/DL 32.3-36.5 uldj=791) RED CELL DISTRIBUTION WIDTH (BEAKER) (test 14.0 % 11.6-14.4 mxww=886) PLATELET COUNT (BEAKER) (test gvzz=362) 96 K/CU MM 150-450 MEAN PLATELET VOLUME (BEAKER) (test xluc=217) 12.3 fL 9.4-12.4 NUCLEATED RED BLOOD CELLS (BEAKER) (test 0 /100 WBC 0-0 vqmd=673) NEUTROPHILS RELATIVE PERCENT (BEAKER) (test 78 % axfk=840) LYMPHOCYTES RELATIVE PERCENT (BEAKER) (test 11 % mrbh=405) MONOCYTES RELATIVE PERCENT (BEAKER) (test 8 % rmfr=615) EOSINOPHILS RELATIVE PERCENT (BEAKER) (test 2 % hepy=406) BASOPHILS RELATIVE PERCENT (BEAKER) (test 0 % sbra=822) NEUTROPHILS ABSOLUTE COUNT (BEAKER) (test 6.60 K/ L 1.78-5.38 zbxw=768) LYMPHOCYTES ABSOLUTE COUNT (BEAKER) (test 0.92 K/ L 1.32-3.57 pgje=274) MONOCYTES ABSOLUTE COUNT (BEAKER) (test kngu=630) 0.69 K/ L 0.30-0.82 EOSINOPHILS ABSOLUTE COUNT (BEAKER) (test 0.18 K/ L 0.04-0.54 hbis=481) BASOPHILS ABSOLUTE COUNT (BEAKER) (test gybn=156) 0.02 K/ L 0.01-0.08 IMMATURE GRANULOCYTES-RELATIVE PERCENT (BEAKER) 1 % 0-1 (test pvdt=6991) OXYGEN SATURATION, [id number] 03:25:00 Test Item Value Reference Range Comments O2 SATURATION (MEASURED) (BEAKER) (test eftl=5367) 90.1 % CALCIUM, [id number] 03:25:00 Test Item Value Reference Range Comments CALCIUM IONIZED (BEAKER) (test gsxh=634) 1.11 mmol/L 1.12-1.27 PH, BLOOD (BEAKER) (test gzek=1368) 7.42 HEMOGLOBIN AND [id number] 20:22:00 Test Item Value Reference Range Comments HEMOGLOBIN (BEAKER) (test vjkg=846) 6.8 GM/DL 13.7-17.5 HEMATOCRIT (BEAKER) (test lovb=947) 21.1 % 40.1-51.0 POCT-GLUCOSE [id number] 18:11:00 Test Item Value Reference Range Comments POC-GLUCOSE METER (BEAKER) 119 mg/dL 70-110 TESTED AT [facility] [address] [facility] (test fewr=0718) [facility] [address] POCT-GLUCOSE [id number] 15:15:00 Test Item Value Reference Range Comments POC-GLUCOSE METER (BEAKER) 131 mg/dL 70-110 TESTED AT [place] [id number] [facility] (test ibxz=7476) [facility] [address] RAD, CHEST, 1 VIEW, NON [id number] 14:13:00Reason for exam:->s/p cardiac surgeryShould this be performed at the bedside?->YesFINAL REPORT Portable chest CLINICAL HISTORY: Status post cardiac surgery. Comparison study: January 01, 2018 FINDINGS: The right axilla is enlarged. The patient is status post sternotomy. A right-sided jugular line and left-sided chest tube are noted. There has been interval extubation and removal of the nasogastric tube. And mediastinal drain remains. Airspace disease is seen inleft mid to lower lung field, new from previous. No pneumothorax present. Degenerative changes are seen IMPRESSION: Airspace disease in the left mid to lower lung field, new from previous and possibly related to pneumonia. No other significant change. Signed: Rahat Payan MDReport Verified Date/Time: 2017 14:13:48 Reading Location: [facility] Diagnostic Imaging Reading Room - [place] [address] CBC W/PLT COUNT & AUTO [id number] 07:31:00 Test Item Value Reference Range Comments WHITE BLOOD CELL COUNT (BEAKER) (test ojme=837) 8.7 K/ L 3.5-10.5 RED BLOOD CELL COUNT (BEAKER) (test whcd=631) 2.43 M/ L 4.63-6.08 HEMOGLOBIN (BEAKER) (test zvdf=561) 6.9 GM/DL 13.7-17.5 HEMATOCRIT (BEAKER) (test zhbz=165) 21.4 % 40.1-51.0 MEAN CORPUSCULAR VOLUME (BEAKER) (test pqaf=330) 88.1 fL 79.0-92.2 MEAN CORPUSCULAR HEMOGLOBIN (BEAKER) (test 28.4 pg 25.7-32.2 lhly=978) MEAN CORPUSCULAR HEMOGLOBIN CONC (BEAKER) (test 32.2 GM/DL 32.3-36.5 lazx=499) RED CELL DISTRIBUTION WIDTH (BEAKER) (test 13.2 % 11.6-14.4 imoj=432) PLATELET COUNT (BEAKER) (test cbop=488) 103 K/CU MM 150-450 MEAN PLATELET VOLUME (BEAKER) (test vomz=510) 12.6 fL 9.4-12.4 NUCLEATED RED BLOOD CELLS (BEAKER) (test 0 /100 WBC 0-0 lgyz=429) NEUTROPHILS RELATIVE PERCENT (BEAKER) (test 85 % kiti=807) LYMPHOCYTES RELATIVE PERCENT (BEAKER) (test 6 % fywr=144) MONOCYTES RELATIVE PERCENT (BEAKER) (test 8 % qiwm=341) EOSINOPHILS RELATIVE PERCENT (BEAKER) (test 1 % ccpo=464) BASOPHILS RELATIVE PERCENT (BEAKER) (test 0 % qgyi=487) NEUTROPHILS ABSOLUTE COUNT (BEAKER) (test 7.37 K/ L 1.78-5.38 wizn=454) LYMPHOCYTES ABSOLUTE COUNT (BEAKER) (test 0.50 K/ L 1.32-3.57 brth=483) MONOCYTES ABSOLUTE COUNT (BEAKER) (test 0.72 K/ L 0.30-0.82 iena=234) EOSINOPHILS ABSOLUTE COUNT (BEAKER) (test 0.05 K/ L 0.04-0.54 iuqz=845) BASOPHILS ABSOLUTE COUNT (BEAKER) (test 0.01 K/ L 0.01-0.08 jqsc=205) IMMATURE GRANULOCYTES-RELATIVE PERCENT (BEAKER) 1 % 0-1 (test gbip=9911) [id number] 05:32:00 Test Item Value Reference Range Comments PHOSPHORUS (BEAKER) (test sita=379) 2.8 mg/dL 2.3-4.7 [id number] 05:32:00 Test Item Value Reference Range Comments MAGNESIUM (BEAKER) (test upgb=452) 1.8 mg/dL 1.6-2.6 BASIC METABOLIC [id number] 05:32:00 Test Item Value Reference Range Comments SODIUM (BEAKER) (test 139 meq/L 136-145 xwvu=786) POTASSIUM (BEAKER) (test 3.8 meq/L 3.5-5.1 qwfk=467) CHLORIDE (BEAKER) (test 106 meq/L 98-107 ijqr=937) CO2 (BEAKER) (test 26 meq/L 22-29 biwd=806) BLOOD UREA NITROGEN 12 mg/dL 7-21 (BEAKER) (test zfml=039) CREATININE (BEAKER) (test 1.00 mg/dL 0.57-1.25 xwlp=253) GLUCOSE RANDOM (BEAKER) 118 mg/dL 70-105 (test fbbq=699) CALCIUM (BEAKER) (test 8.7 mg/dL 8.4-10.2 nxsh=953) EGFR (BEAKER) (test 90 mL/min/1.73 sq m ESTIMATED GFR IS NOT utda=7901) ACCURATE CREATININE CLEARANCE IN PREDICTING GLOMERULAR FILTRATION RATE. ESTIMATED GFR IS NOT APPLICABLE FOR DIALYSIS PATIENTS. HEPATIC FUNCTION [id number] 05:32:00 Test Item Value Reference Range Comments TOTAL PROTEIN (BEAKER) (test kvuw=306) 5.6 gm/dL 6.0-8.3 ALBUMIN (BEAKER) (test bzpi=1581) 3.0 g/dL 3.5-5.0 BILIRUBIN TOTAL (BEAKER) (test opdn=517) 0.8 mg/dL 0.2-1.2 BILIRUBIN DIRECT (BEAKER) (test nqsm=762) 0.4 mg/dL 0.1-0.5 ALKALINE PHOSPHATASE (BEAKER) (test pehu=303) 46 U/L 40-150 AST (SGOT) (BEAKER) (test qjhh=801) 31 U/L 5-34 ALT (SGPT) (BEAKER) (test zymn=207) 11 U/L 6-55 CBC W/PLT COUNT & AUTO [id number] 05:13:00 Test Item Value Reference Range Comments WHITE BLOOD CELL COUNT (BEAKER) (test fmie=550) 8.5 K/ L 3.5-10.5 RED BLOOD CELL COUNT (BEAKER) (test hvoy=222) 2.39 M/ L 4.63-6.08 HEMOGLOBIN (BEAKER) (test hcbr=115) 6.8 GM/DL 13.7-17.5 HEMATOCRIT (BEAKER) (test jyvw=108) 21.4 % 40.1-51.0 MEAN CORPUSCULAR VOLUME (BEAKER) (test hzfk=060) 89.5 fL 79.0-92.2 MEAN CORPUSCULAR HEMOGLOBIN (BEAKER) (test 28.5 pg 25.7-32.2 kqwy=614) MEAN CORPUSCULAR HEMOGLOBIN CONC (BEAKER) (test 31.8 GM/DL 32.3-36.5 kvns=787) RED CELL DISTRIBUTION WIDTH (BEAKER) (test 13.4 % 11.6-14.4 wnqt=966) PLATELET COUNT (BEAKER) (test mygp=345) 87 K/CU MM 150-450 MEAN PLATELET VOLUME (BEAKER) (test gxpw=568) 12.4 fL 9.4-12.4 NUCLEATED RED BLOOD CELLS (BEAKER) (test 0 /100 WBC 0-0 qyhg=051) NEUTROPHILS RELATIVE PERCENT (BEAKER) (test 83 % bljy=624) LYMPHOCYTES RELATIVE PERCENT (BEAKER) (test 9 % dgjw=479) MONOCYTES RELATIVE PERCENT (BEAKER) (test 7 % vllv=085) EOSINOPHILS RELATIVE PERCENT (BEAKER) (test 1 % eudf=082) BASOPHILS RELATIVE PERCENT (BEAKER) (test 0 % vbja=478) NEUTROPHILS ABSOLUTE COUNT (BEAKER) (test 7.07 K/ L 1.78-5.38 tcdk=887) LYMPHOCYTES ABSOLUTE COUNT (BEAKER) (test 0.79 K/ L 1.32-3.57 gaof=377) MONOCYTES ABSOLUTE COUNT (BEAKER) (test vftv=456) 0.59 K/ L 0.30-0.82 EOSINOPHILS ABSOLUTE COUNT (BEAKER) (test 0.04 K/ L 0.04-0.54 yzgl=457) BASOPHILS ABSOLUTE COUNT (BEAKER) (test ohps=507) 0.01 K/ L 0.01-0.08 IMMATURE GRANULOCYTES-RELATIVE PERCENT (BEAKER) 1 % 0-1 (test jalx=6395) [id number] 05:08:00 Test Item Value Reference Range Comments PARTIAL THROMBOPLASTIN TIME (BEAKER) (test 33.1 seconds 22.5-36.0 irhl=254) PROTHROMBIN [id number] 05:07:00 Test Item Value Reference Range Comments PROTIME (BEAKER) (test gtck=415) 15.3 seconds 11.7-14.7 INR (BEAKER) (test freh=755) 1.2 <=5.9 RECOMMENDED COUMADIN/WARFARIN INR THERAPY RANGESSTANDARD DOSE: 2.0 - 3.0 Includes: PROPHYLAXIS forvenous thrombosis, systemic embolization; TREATMENT for venous thrombosis and/or pulmonary embolus.HIGH RISK: Target INR is 2.5-3.5 for patients with mechanical heart valves.CALCIUM, [id number] 04:54:00 Test Item Value Reference Range Comments CALCIUM IONIZED (BEAKER) (test erzw=624) 1.12 mmol/L 1.12-1.27 PH, BLOOD (BEAKER) (test idxb=6368) 7.42 OXYGEN SATURATION, [id number] 04:49:00 Test Item Value Reference Range Comments O2 SATURATION (MEASURED) (BEAKER) (test yxqy=2508) 52.3 % HEMOGLOBIN AND [id number] 11:00:00 Test Item Value Reference Range Comments HEMOGLOBIN (BEAKER) (test pwfc=149) 7.3 GM/DL 13.7-17.5 HEMATOCRIT (BEAKER) (test nyhk=872) 22.0 % 40.1-51.0 BLOOD GAS, [id number] 10:38:00 Test Item Value Reference Range Comments PH ARTERIAL (BEAKER) (test nduc=953) 7.45 7.35-7.45 PCO2 ARTERIAL (BEAKER) (test pzay=947) 37 mm Hg 35-45 PO2 ARTERIAL (BEAKER) (test eoza=068) 74 mm Hg 80-90 O2 SATURATION ARTERIAL (BEAKER) (test ljda=752) 95.2 % 96.0-97.0 HCO3 ARTERIAL (BEAKER) (test lsjd=330) 25 mmol/L 21-29 BASE EXCESS ARTERIAL (BEAKER) (test gbkn=927) 1.1 mmol/L -2.0-3.0 PATIENT TEMPERATURE (BEAKER) (test luyg=7396) 37.7 FIO2 (BEAKER) (test lwgq=5461) 36 BLOOD GAS, [id number] 08:53:00 Test Item Value Reference Range Comments PH ARTERIAL (BEAKER) (test mfug=686) 7.52 7.35-7.45 PCO2 ARTERIAL (BEAKER) (test qrnm=995) 30 mm Hg 35-45 PO2 ARTERIAL (BEAKER) (test ptsq=024) 169 mm Hg 80-90 O2 SATURATION ARTERIAL (BEAKER) (test aazf=859) 99.3 % 96.0-97.0 HCO3 ARTERIAL (BEAKER) (test lyss=427) 24 mmol/L 21-29 BASE EXCESS ARTERIAL (BEAKER) (test mdsy=928) 0.7 mmol/L -2.0-3.0 PATIENT TEMPERATURE (BEAKER) (test rrtn=4140) 36.9 FIO2 (BEAKER) (test jtvo=5848) 40 GLUCOSE-STAT [id number] 08:52:00 Test Item Value Reference Range Comments GLUCOSE RANDOM (BEAKER) (test zgks=178) 111 mg/dL 70-110 RAD, CHEST, 1 VIEW, NON [id number] 07:32:00Reason for exam:->s/p cardiac surgeryShould this be performed at the bedside?->YesFINAL REPORT CLINICAL HISTORY: s/p cardiac surgery TECHNIQUE: 1 view of the chest. COMPARISON: 12/31/2017 IMPRESSION: The supporting lines and tubes are unchanged. There is no pneumothorax. Mild pulmonary vascular congestive findings are unchanged. The cardiomediastinal silhouette is magnified by technique with sternotomy wires. Signed: Julianna Gillette [facility] Verified Date/ Time: 01/01/2018 07:32:34 Reading Location: [facility] Radiology Reading Room HEMOGLOBIN-STAT [id number] 06:50:00 Test Item Value Reference Range Comments HEMOGLOBIN (BEAKER) (test hxph=892) 7.8 g/dL 13.0-16.8 HEMATOCRIT-STAT [id number] 06:50:00 Test Item Value Reference Range Comments HEMATOCRIT (BEAKER) (test pdds=498) 23.0 % 40.0-50.0 POCT-GLUCOSE [id number] 06:08:00 Test Item Value Reference Range Comments POC-GLUCOSE METER (BEAKER) 130 mg/dL 70-110 TESTED AT [address] (test jczg=5549) [facility] [address] OXYGEN SATURATION, [id number] 05:33:00 Test Item Value Reference Range Comments O2 SATURATION (MEASURED) (BEAKER) (test opzw=3664) 66.9 % BLOOD GAS, [id number] 04:57:00 Test Item Value Reference Range Comments PH ARTERIAL (BEAKER) (test vjsz=180) 7.52 7.35-7.45 PCO2 ARTERIAL (BEAKER) (test teck=186) 34 mmHg 35-45 PO2 ARTERIAL (BEAKER) (test pdme=393) 239 mmHg 80-90 O2 SATURATION ARTERIAL (BEAKER) (test csac=417) 99.6 % 96.0-97.0 HCO3 ARTERIAL (BEAKER) (test iqlt=545) 27 mmol/L 21-29 BASE EXCESS ARTERIAL (BEAKER) (test kcyw=528) 4.0 mmol/L -2.0-3.0 PATIENT TEMPERATURE (BEAKER) (test povn=4388) 38.2 C FIO2 (BEAKER) (test wgbx=5791) 40.0 % 30 minutes after spontaneous breathing trial (SBT)CALCIUM, [id number] 04: 57:00 Test Item Value Reference Range Comments CALCIUM IONIZED (BEAKER) (test xpcj=264) 1.06 mmol/L 1.12-1.27 PH, BLOOD (BEAKER) (test pvew=0972) 7.54 POCT-GLUCOSE [id number] 04:21:00 Test Item Value Reference Range Comments POC-GLUCOSE METER (BEAKER) 137 mg/dL 70-110 TESTED AT [address] (test xlrf=5824) [facility] [address] HEPATIC FUNCTION [id number] 04:10:00 Test Item Value Reference Range Comments TOTAL PROTEIN (BEAKER) (test euah=790) 5.4 gm/dL 6.0-8.3 ALBUMIN (BEAKER) (test wuxo=4816) 3.0 g/dL 3.5-5.0 BILIRUBIN TOTAL (BEAKER) (test jhut=215) 1.0 mg/dL 0.2-1.2 BILIRUBIN DIRECT (BEAKER) (test ibkr=101) 0.4 mg/dL 0.1-0.5 ALKALINE PHOSPHATASE (BEAKER) (test cmzx=857) 47 U/L 40-150 AST (SGOT) (BEAKER) (test iupf=041) 41 U/L 5-34 ALT (SGPT) (BEAKER) (test fvqa=038) 10 U/L 6-55 BASIC METABOLIC [id number] 04:10:00 Test Item Value Reference Range Comments SODIUM (BEAKER) (test 140 meq/L 136-145 bdqm=424) POTASSIUM (BEAKER) (test 3.8 meq/L 3.5-5.1 bofb=711) CHLORIDE (BEAKER) (test 111 meq/L 98-107 dpbu=165) CO2 (BEAKER) (test 21 meq/L 22-29 yqlf=451) BLOOD UREA NITROGEN 11 mg/dL 7-21 (BEAKER) (test ches=482) CREATININE (BEAKER) (test 1.08 mg/dL 0.57-1.25 vyry=167) GLUCOSE RANDOM (BEAKER) 136 mg/dL 70-105 (test ubci=991) CALCIUM (BEAKER) (test 8.5 mg/dL 8.4-10.2 zhsl=538) EGFR (BEAKER) (test 83 mL/min/1.73 sq m ESTIMATED GFR IS NOT iwmm=0718) ACCURATE CREATININE CLEARANCE IN PREDICTING GLOMERULAR FILTRATION RATE. ESTIMATED GFR IS NOT APPLICABLE FOR DIALYSIS PATIENTS. [id number] 04:10:00 Test Item Value Reference Range Comments MAGNESIUM (BEAKER) (test svux=374) 1.9 mg/dL 1.6-2.6 [id number] 04:10:00 Test Item Value Reference Range Comments PHOSPHORUS (BEAKER) (test ujvq=807) 2.3 mg/dL 2.3-4.7 VANCOMYCIN LEVEL, [id number] 04:06:00 Test Item Value Reference Range Comments VANCOMYCIN RANDOM (BEAKER) (test pzpn=304) 5.4 ug/mL Reference Range: No [id number] 04:03:00 Test Item Value Reference Range Comments PARTIAL THROMBOPLASTIN TIME (BEAKER) (test 31.1 seconds 22.5-36.0 haye=038) PROTHROMBIN TIME/[id number] 04:02:00 Test Item Value Reference Range Comments PROTIME (BEAKER) (test ndfo=364) 16.8 seconds 11.7-14.7 INR (BEAKER) (test otoa=924) 1.4 <=5.9 RECOMMENDED COUMADIN/WARFARIN INR THERAPY RANGESSTANDARD DOSE: 2.0 - 3.0 Includes: PROPHYLAXIS forvenous thrombosis, systemic embolization; TREATMENT for venous thrombosis and/or pulmonary embolus.HIGH RISK: Target INR is 2.5-3.5 for patients with mechanical heart valves.LACTIC ACID, ARTERIAL, WHOLE [id number] 04:02:00 Test Item Value Reference Range Comments LACTATE BLOOD ARTERIAL (2) (BEAKER) (test 1.4 mmol/L 0.5-2.2 rdjp=8168) Effective 10/13/2015: Units/Reference Range ChangeNew: 0.5-2.2 mmol/L Previous: 5 -20 mg/dLCBC W/PLT COUNT & AUTO [id number] 03:51:00 Test Item Value Reference Range Comments WHITE BLOOD CELL COUNT (BEAKER) (test jfww=535) 6.1 K/ L 3.5-10.5 RED BLOOD CELL COUNT (BEAKER) (test xzjq=434) 2.54 M/ L 4.63-6.08 HEMOGLOBIN (BEAKER) (test rexn=120) 7.4 GM/DL 13.7-17.5 HEMATOCRIT (BEAKER) (test ifge=306) 22.4 % 40.1-51.0 MEAN CORPUSCULAR VOLUME (BEAKER) (test xvha=038) 88.2 fL 79.0-92.2 MEAN CORPUSCULAR HEMOGLOBIN (BEAKER) (test 29.1 pg 25.7-32.2 jhtq=937) MEAN CORPUSCULAR HEMOGLOBIN CONC (BEAKER) (test 33.0 GM/DL 32.3-36.5 qqnt=220) RED CELL DISTRIBUTION WIDTH (BEAKER) (test 13.3 % 11.6-14.4 fjdb=640) PLATELET COUNT (BEAKER) (test izsk=542) 97 K/CU MM 150-450 MEAN PLATELET VOLUME (BEAKER) (test xbjg=484) 11.5 fL 9.4-12.4 NUCLEATED RED BLOOD CELLS (BEAKER) (test 0 /100 WBC 0-0 dvsh=308) NEUTROPHILS RELATIVE PERCENT (BEAKER) (test 79 % euzd=584) LYMPHOCYTES RELATIVE PERCENT (BEAKER) (test 12 % dkck=605) MONOCYTES RELATIVE PERCENT (BEAKER) (test 8 % jxcp=628) EOSINOPHILS RELATIVE PERCENT (BEAKER) (test 1 % irfs=220) BASOPHILS RELATIVE PERCENT (BEAKER) (test 0 % lpkf=073) NEUTROPHILS ABSOLUTE COUNT (BEAKER) (test 4.83 K/ L 1.78-5.38 ucwl=831) LYMPHOCYTES ABSOLUTE COUNT (BEAKER) (test 0.73 K/ L 1.32-3.57 soyk=374) MONOCYTES ABSOLUTE COUNT (BEAKER) (test vxlh=637) 0.48 K/ L 0.30-0.82 EOSINOPHILS ABSOLUTE COUNT (BEAKER) (test 0.03 K/ L 0.04-0.54 aemv=248) BASOPHILS ABSOLUTE COUNT (BEAKER) (test xirn=697) 0.00 K/ L 0.01-0.08 IMMATURE GRANULOCYTES-RELATIVE PERCENT (BEAKER) 0 % 0-1 (test sias=3214) POCT-GLUCOSE [id number] 02:40:00 Test Item Value Reference Range Comments POC-GLUCOSE METER (BEAKER) 142 mg/dL 70-110 TESTED AT [address] (test pjoh=9213) [facility] [address] RAD, CHEST, 1 VIEW, NON [id number] 22:13:00Reason for exam:->IABP positionShould this be performed at the bedside?->YesFINAL REPORT RAD, CHEST, 1 VIEW, NON DEPT INDICATION: IABP position COMPARISON: Chest x-ray 11 hours ago TECHNIQUE: Portable frontal view of the chest. IMPRESSION: IABP has beenadvanced and now terminates at the top of the aortic arch.All other lines and tubes stable.Stable cardiomegaly.No pneumothorax.Stable mild interstitial edema.No acute osseous abnormality. Signed : Jaylin Benson MDReport Verified Date/Time: 12/31/2017 22:13:34 Reading Location: [address] Reading Room POCT-GLUCOSE [id number] 16:48:00 Test Item Value Reference Range Comments POC-GLUCOSE METER (BEAKER) 120 mg/dL 70-110 TESTED AT [facility] [address] [facility] (test dvve=3062) [facility] [address] POCT-GLUCOSE [id number] 13:08:00 Test Item Value Reference Range Comments POC-GLUCOSE METER (BEAKER) 126 mg/dL 70-110 TESTED AT [facility] [address] [facility] (test kodq=6571) [facility] [address] RAD, CHEST, 1 VIEW, NON [id number] 11:34:00Reason for exam:->iabpShould this be performed at the bedside?->YesFINAL REPORT CLINICAL HISTORY: iabp TECHNIQUE: 1 view of the chest. COMPARISON: 12/31/2017 IMPRESSION: The supporting lines and tubes are unchanged. Pulmonary vascular congestivefindings are unchanged. The cardiomediastinal silhouette is unchanged poststernotomy. Signed: Julianna Gillette Verified Date/Time: 12/31/2017 11 :34:32 Reading Location: [facility] Radiology Reading Room RAD, CHEST , 1 VIEW, NON [id number] 08:32:00Reason for exam:->Balloon pump placementShould this be performed at the bedside?->YesFINAL REPORT CLINICAL HISTORY: Balloon pump placement TECHNIQUE: 1 view of the chest. COMPARISON: 12/31/2017 IMPRESSION: The tip of the IABP catheter projects approximately 8 cm below the aortic knob. The other lines and tubes appear unchanged. Pulmonary vascular congestion is again seen. The cardiomediastinal silhouette is magnified by technique with sternotomy wires. Signed:Julianna Gillette Verified Date/Time: 12/31/2017 08:32:28 Reading Location: [facility] Radiology Reading Room CBC W/PLT COUNT & AUTO [id number] 07:55:00 Test Item Value Reference Range Comments WHITE BLOOD CELL COUNT (BEAKER) (test awgq=139) 8.7 K/ L 3.5-10.5 RED BLOOD CELL COUNT (BEAKER) (test fvbr=557) 3.06 M/ L 4.63-6.08 HEMOGLOBIN (BEAKER) (test qfmu=593) 8.8 GM/DL 13.7-17.5 HEMATOCRIT (BEAKER) (test denr=957) 27.0 % 40.1-51.0 MEAN CORPUSCULAR VOLUME (BEAKER) (test ssff=856) 88.2 fL 79.0-92.2 MEAN CORPUSCULAR HEMOGLOBIN (BEAKER) (test 28.8 pg 25.7-32.2 pxyi=132) MEAN CORPUSCULAR HEMOGLOBIN CONC (BEAKER) (test 32.6 GM/DL 32.3-36.5 xkfz=679) RED CELL DISTRIBUTION WIDTH (BEAKER) (test 13.2 % 11.6-14.4 tidr=068) PLATELET COUNT (BEAKER) (test ragx=285) 142 K/CU MM 150-450 MEAN PLATELET VOLUME (BEAKER) (test ceao=179) 11.0 fL 9.4-12.4 NUCLEATED RED BLOOD CELLS (BEAKER) (test 0 /100 WBC 0-0 qpmu=557) (CELLAVISION MANUAL DIFF)2017-12-31 07:55:00 Test Item Value Reference Range Comments NEUTROPHILS - REL (CELLAVISION)(BEAKER) (test 66 % ghhk=0306) LYMPHOCYTES - REL (CELLAVISION)(BEAKER) (test 15 % klvg=2013) MONOCYTES - REL (CELLAVISION)(BEAKER) (test 2 % iedt=7186) BANDS - REL (CELLAVISION)(BEAKER) (test pfrm=6826) 16 % 0-10 NEUTROPHILS - ABS (CELLAVISION)(BEAKER) (test 5.74 K/ul 1.78-5.38 oghq=6865) LYMPHOCYTES - ABS (CELLAVISION)(BEAKER) (test 1.31 K/ul 1.32-3.57 qzqw=2727) MONOCYTES - ABS (CELLAVISION)(BEAKER) (test 0.17 K/uL 0.30-0.82 voks=7233) BANDS - ABS (CELLAVISION)(BEAKER) (test xyim=5315) 1.39 K/uL 0.00-0.80 TOTAL COUNTED (BEAKER) (test eppq=3438) 100 RBC MORPHOLOGY (BEAKER) (test sfon=078) Normal WBC MORPHOLOGY (BEAKER) (test vfyu=670) Normal PLT MORPHOLOGY (BEAKER) (test abol=226) Normal ARTIFACT (CELLAVISION)(BEAKER) (test zvgu=0231) Present PLATELET CONCENTRATION (CELLAVISION)(BEAKER) (test Decreased dqxi=1099) Received comment: User comments: Slide comments:[id number] 07:12:00 Test Item Value Reference Range Comments PHOSPHORUS (BEAKER) (test wqqp=232) 1.5 mg/dL 2.3-4.7 [id number] 06:59:00 Test Item Value Reference Range Comments MAGNESIUM (BEAKER) (test tfln=458) 1.5 mg/dL 1.6-2.6 BASIC METABOLIC [id number] 06:59:00 Test Item Value Reference Range Comments SODIUM (BEAKER) (test 138 meq/L 136-145 tjpa=385) POTASSIUM (BEAKER) (test 4.2 meq/L 3.5-5.1 uelc=056) CHLORIDE (BEAKER) (test 109 meq/L 98-107 sxbu=227) CO2 (BEAKER) (test 23 meq/L 22-29 cqte=421) BLOOD UREA NITROGEN 11 mg/dL 7-21 (BEAKER) (test zwlv=153) CREATININE (BEAKER) (test 1.05 mg/dL 0.57-1.25 bqst=785) GLUCOSE RANDOM (BEAKER) 143 mg/dL 70-105 (test ymzd=634) CALCIUM (BEAKER) (test 8.1 mg/dL 8.4-10.2 disw=438) EGFR (BEAKER) (test 85 mL/min/1.73 sq m ESTIMATED GFR IS NOT pnbr=7337) ACCURATE CREATININE CLEARANCE IN PREDICTING GLOMERULAR FILTRATION RATE. ESTIMATED GFR IS NOT APPLICABLE FOR DIALYSIS PATIENTS. HEPATIC FUNCTION [id number] 06:59:00 Test Item Value Reference Range Comments TOTAL PROTEIN (BEAKER) (test mlal=880) 5.3 gm/dL 6.0-8.3 ALBUMIN (BEAKER) (test ynbo=9356) 3.1 g/dL 3.5-5.0 BILIRUBIN TOTAL (BEAKER) (test nuze=677) 0.9 mg/dL 0.2-1.2 BILIRUBIN DIRECT (BEAKER) (test nnqs=282) 0.3 mg/dL 0.1-0.5 ALKALINE PHOSPHATASE (BEAKER) (test isfa=576) 44 U/L 40-150 AST (SGOT) (BEAKER) (test rmdu=907) 41 U/L 5-34 ALT (SGPT) (BEAKER) (test tcvx=795) 10 U/L 6-55 THROMBOELASTOGRAPH (TEG)2017-12-31 06:52:00 Test Item Value Reference Range Comments TEG ACTIVATED CLOTTING TIME (BEAKER) (test 8.2 minutes 4.0-7.0 jnhx=6765) TEG FIBRINOGEN ACTIVITY (BEAKER) (test 68.1 degrees 61.0-73.0 itvs=7794) TEG PLT. AGGREGATION (BEAKER) (test ekbg=5626) 56.8 MM 55.0-65.0 TEG FIBRINOLYSIS (BEAKER) (test ezrl=2785) 0.0 % 0.0-5.0 TGH ACTIVATED CLOTTING TIME (BEAKER) (test 8.0 minutes 4.0-7.0 dblr=2595) TGH FIBRINOGEN ACTIVITY (BEAKER) (test 69.1 degrees 61.0-73.0 txpc=1646) TGH PLT. AGGREGATION (BEAKER) (test qbyv=7874) 55.0 MM 55.0-65.0 TGH FIBRINOLYSIS (BEAKER) (test yfrf=5569) 0.5 % 0.0-5.0 PROTHROMBIN [id number] 06:40:00 Test Item Value Reference Range Comments PROTIME (BEAKER) (test cbfz=282) 16.7 seconds 11.7-14.7 INR (BEAKER) (test gtju=739) 1.4 <=5.9 RECOMMENDED COUMADIN/WARFARIN INR THERAPY RANGESSTANDARD DOSE: 2.0 - 3.0 Includes: PROPHYLAXIS forvenous thrombosis, systemic embolization; TREATMENT for venous thrombosis and/or pulmonary embolus.HIGH RISK: Target INR is 2.5-3.5 for patients with mechanical heart valves.CBC W/PLT COUNT & AUTO [id number] 06:38:00 Test Item Value Reference Range Comments WHITE BLOOD CELL COUNT (BEAKER) (test sudv=088) 9.1 K/ L 3.5-10.5 RED BLOOD CELL COUNT (BEAKER) (test xmmm=771) 2.77 M/ L 4.63-6.08 HEMOGLOBIN (BEAKER) (test tkgb=980) 8.0 GM/DL 13.7-17.5 HEMATOCRIT (BEAKER) (test nfoa=861) 24.5 % 40.1-51.0 MEAN CORPUSCULAR VOLUME (BEAKER) (test hiws=907) 88.4 fL 79.0-92.2 MEAN CORPUSCULAR HEMOGLOBIN (BEAKER) (test 28.9 pg 25.7-32.2 ehip=874) MEAN CORPUSCULAR HEMOGLOBIN CONC (BEAKER) (test 32.7 GM/DL 32.3-36.5 nncs=563) RED CELL DISTRIBUTION WIDTH (BEAKER) (test 13.2 % 11.6-14.4 krsf=006) PLATELET COUNT (BEAKER) (test aabf=792) 144 K/CU MM 150-450 MEAN PLATELET VOLUME (BEAKER) (test mmez=680) 11.0 fL 9.4-12.4 NUCLEATED RED BLOOD CELLS (BEAKER) (test 0 /100 WBC 0-0 kpfu=424) NEUTROPHILS RELATIVE PERCENT (BEAKER) (test 77 % lnkt=319) LYMPHOCYTES RELATIVE PERCENT (BEAKER) (test 16 % pvzg=434) MONOCYTES RELATIVE PERCENT (BEAKER) (test 6 % fhfc=621) EOSINOPHILS RELATIVE PERCENT (BEAKER) (test 1 % muzk=005) BASOPHILS RELATIVE PERCENT (BEAKER) (test 0 % mlsa=368) NEUTROPHILS ABSOLUTE COUNT (BEAKER) (test 6.95 K/ L 1.78-5.38 clsi=794) LYMPHOCYTES ABSOLUTE COUNT (BEAKER) (test 1.45 K/ L 1.32-3.57 slcm=350) MONOCYTES ABSOLUTE COUNT (BEAKER) (test 0.56 K/ L 0.30-0.82 vwhc=758) EOSINOPHILS ABSOLUTE COUNT (BEAKER) (test 0.06 K/ L 0.04-0.54 jhrk=579) BASOPHILS ABSOLUTE COUNT (BEAKER) (test 0.01 K/ L 0.01-0.08 hjdr=713) IMMATURE GRANULOCYTES-RELATIVE PERCENT (BEAKER) 0 % 0-1 (test obmy=0522) LACTIC ACID, ARTERIAL, WHOLE [id number] 06:31:00 Test Item Value Reference Range Comments LACTATE BLOOD ARTERIAL (2) (BEAKER) (test 2.0 mmol/L 0.5-2.2 tecy=3242) Effective 10/13/2015: Units/Reference Range ChangeNew: 0.5-2.2 mmol/L Previous: 5 -20 mg/dLBLOOD GAS, [id number] 06:22:00 Test Item Value Reference Range Comments PH ARTERIAL (BEAKER) (test zwvt=547) 7.47 7.35-7.45 PCO2 ARTERIAL (BEAKER) (test sjjn=575) 33 mmHg 35-45 PO2 ARTERIAL (BEAKER) (test ldyo=769) 411 mmHg 80-90 O2 SATURATION ARTERIAL (BEAKER) (test szal=468) 99.8 % 96.0-97.0 HCO3 ARTERIAL (BEAKER) (test nuiy=412) 24 mmol/L 21-29 BASE EXCESS ARTERIAL (BEAKER) (test ezth=207) 0.5 mmol/L -2.0-3.0 PATIENT TEMPERATURE (BEAKER) (test dgna=4637) 35.1 C FIO2 (BEAKER) (test bgwv=5858) 100.0 % 30 minutes post extubationRAD, CHEST, 1 VIEW, NON [id number] 05:27:00Reason for exam:->s/p cardiac surgeryShould this be performed at the bedside?-> YesFINAL REPORT Chest one view. Clinical history: s/p cardiac surgery Comparison: None. Technique: A single frontal view of the chest was obtained. Findings/impression:The patientis status post median sternotomy and CABG. There is an endotracheal tube in satisfactory position. There is a feeding tube which projects below the diaphragm however the distal end is off the field of view. There is a left chest tube with tip in the left lung apex. There is mild bilateral interstitialprominence with mild diffuse haziness which may represent pulmonary interstitial edema. There are small patchy a nodular opacities in left mid lung and left lower lobe which may represent pneumonia or atelectasis however imaging follow-up is recommended to exclude underlying lesions. There is no pleural effusion or pneumothorax. The heart is normal in size. Signed: Du Chiu MDReport VerifiedDate/Time: 12/31/2017 05:27: 47 Reading Location: [facility] C013Y CT Body Reading Room [id number] 05:16:00 Test Item Value Reference Range Comments PARTIAL THROMBOPLASTIN TIME (BEAKER) (test 35.0 seconds 22.5-36.0 njbe=208) [id number] 05:15:00 Test Item Value Reference Range Comments FIBRINOGEN LEVEL (BEAKER) (test hwid=259) 251 mg/dl 225-434 PROTHROMBIN [id number] 05:15:00 Test Item Value Reference Range Comments PROTIME (BEAKER) (test zgfx=623) 16.6 seconds 11.7-14.7 INR (BEAKER) (test fmlt=936) 1.3 <=5.9 RECOMMENDED COUMADIN/WARFARIN INR THERAPY RANGESSTANDARD DOSE: 2.0 - 3.0 Includes: PROPHYLAXIS forvenous thrombosis, systemic embolization; TREATMENT for venous thrombosis and/or pulmonary embolus.HIGH RISK: Target INR is 2.5-3.5 for patients with mechanical heart valves.BLOOD GAS, [id number] 05:11:00 Test Item Value Reference Range Comments PH ARTERIAL (BEAKER) (test unmj=718) 7.45 7.35-7.45 PCO2 ARTERIAL (BEAKER) (test hgcz=815) 39 mmHg 35-45 PO2 ARTERIAL (BEAKER) (test xqmg=783) 131 mmHg 80-90 O2 SATURATION ARTERIAL (BEAKER) (test irwm=196) 98.9 % 96.0-97.0 HCO3 ARTERIAL (BEAKER) (test prcc=786) 27 mmol/L 21-29 BASE EXCESS ARTERIAL (BEAKER) (test pwdt=998) 2.4 mmol/L -2.0-3.0 PATIENT TEMPERATURE (BEAKER) (test qnrn=0670) 34.9 C FIO2 (BEAKER) (test mrue=8159) 100.0 % HGB/HCT (H&H) - STAT [id number] 05:11:00 Test Item Value Reference Range Comments HEMOGLOBIN (BEAKER) (test tvty=590) 10.1 g/dL 13.0-16.8 HEMATOCRIT (BEAKER) (test ybzo=173) 30.0 % 40.0-50.0 OXYGEN SATURATION, [id number] 05:11:00 Test Item Value Reference Range Comments O2 SATURATION (MEASURED) (BEAKER) (test puax=1941) 53.9 % GLUCOSE-STAT [id number] 05:11:00 Test Item Value Reference Range Comments GLUCOSE RANDOM (BEAKER) (test ouqw=220) 168 mg/dL 70-110 CALCIUM, [id number] 05:11:00 Test Item Value Reference Range Comments CALCIUM IONIZED (BEAKER) (test vfwu=274) 1.04 mmol/L 1.12-1.27 PH, BLOOD (BEAKER) (test hmgy=4718) 7.42 SODIUM NA-STAT [id number] 05:10:00 Test Item Value Reference Range Comments SODIUM (BEAKER) (test islg=966) 142 meq/L 135-148 POTASSIUM-STAT [id number] 05:10:00 Test Item Value Reference Range Comments POTASSIUM (BEAKER) (test hqfr=699) 3.7 meq/L 3.6-5.5 THROMBOELASTOGRAPH (TEG)2017-12-31 03:23:00 Test Item Value Reference Range Comments TEG ACTIVATED CLOTTING TIME (BEAKER) (test 12.1 minutes 4.0-7.0 qeui=5973) TEG FIBRINOGEN ACTIVITY (BEAKER) (test 51.2 degrees 61.0-73.0 yzix=9294) TEG PLT. AGGREGATION (BEAKER) (test botr=5477) 38.7 MM 55.0-65.0 TGH ACTIVATED CLOTTING TIME (BEAKER) (test 11.9 minutes 4.0-7.0 asub=4418) TGH FIBRINOGEN ACTIVITY (BEAKER) (test 52.3 degrees 61.0-73.0 ufvl=9469) TGH PLT. AGGREGATION (BEAKER) (test koeu=6958) 45.5 MM 55.0-65.0 SODIUM NA-STAT [id number] 03:15:00 Test Item Value Reference Range Comments SODIUM (BEAKER) (test lzau=959) 140 meq/L 135-148 POTASSIUM-STAT [id number] 03:15:00 Test Item Value Reference Range Comments POTASSIUM (BEAKER) (test crqd=490) 4.1 meq/L 3.6-5.5 BLOOD GAS, [id number] 03:15:00 Test Item Value Reference Range Comments PH ARTERIAL (BEAKER) (test rlmx=526) 7.36 7.35-7.45 PCO2 ARTERIAL (BEAKER) (test vyep=924) 42 mmHg 35-45 PO2 ARTERIAL (BEAKER) (test uonq=475) 45 mmHg 80-90 O2 SATURATION ARTERIAL (BEAKER) (test jfpg=066) 83.5 % 96.0-97.0 HCO3 ARTERIAL (BEAKER) (test tdpo=345) 23 mmol/L 21-29 BASE EXCESS ARTERIAL (BEAKER) (test yqin=353) -2.6 mmol/L -2.0-3.0 PATIENT TEMPERATURE (BEAKER) (test bejc=8247) 35.1 C FIO2 (BEAKER) (test rpzf=0875) 100.0 % GLUCOSE-STAT [id number] 03:15:00 Test Item Value Reference Range Comments GLUCOSE RANDOM (BEAKER) (test hhue=900) 166 mg/dL 70-110 HGB/HCT (H&H) - STAT [id number] 03:15:00 Test Item Value Reference Range Comments HEMOGLOBIN (BEAKER) (test xtcx=769) 9.3 g/dL 13.0-16.8 HEMATOCRIT (BEAKER) (test gvdv=696) 27.0 % 40.0-50.0 [id number] 03:14:00 Test Item Value Reference Range Comments ACTIVATED CLOTTING TIME 109 sec TESTED AT [address] (BEAKER) (test xicm=997) [place] [address] [id number] 03:14:00 Test Item Value Reference Range Comments ACTIVATED CLOTTING TIME 455 sec TESTED AT [place] [address] [facility] (BEAKER) (test xtug=849) [place] [address] [id number] 03:14:00 Test Item Value Reference Range Comments ACTIVATED CLOTTING TIME 483 sec TESTED AT [place] [address] [facility] (BEAKER) (test oobz=581) [place] [address] [id number] 03:14:00 Test Item Value Reference Range Comments ACTIVATED CLOTTING TIME 599 sec TESTED AT [place] [address] [address] (BEAKER) (test zfkr=039) [place] [address] [id number] 03:14:00 Test Item Value Reference Range Comments ACTIVATED CLOTTING TIME 686 sec TESTED AT [place] [address] [address] (BEAKER) (test olhv=506) [place] [address] [id number] 03:14:00 Test Item Value Reference Range Comments ACTIVATED CLOTTING TIME 505 sec TESTED AT [address] (BEAKER) (test xkta=292) [place] [address] [id number] 03:13:00 Test Item Value Reference Range Comments ACTIVATED CLOTTING TIME 560 [address] (BEAKER) (test dbix=263) [place] [address] [id number] 03:13:00 Test Item Value Reference Range Comments ACTIVATED CLOTTING TIME 599 sec TESTED AT [address] (BEAKER) (test rdss=668) [place] [address] [id number] 02:56:00 Test Item Value Reference Range Comments FIBRINOGEN LEVEL (BEAKER) (test oeqw=278) 129 mg/dl 225-434 [id number] 02:52:00 Test Item Value Reference Range Comments PARTIAL THROMBOPLASTIN TIME (BEAKER) (test 38.7 seconds 22.5-36.0 ogup=036) PROTHROMBIN [id number] 02:51:00 Test Item Value Reference Range Comments PROTIME (BEAKER) (test jpta=423) 23.4 seconds 11.7-14.7 INR (BEAKER) (test auik=134) 2.1 <=5.9 RECOMMENDED COUMADIN/WARFARIN INR THERAPY RANGESSTANDARD DOSE: 2.0 - 3.0 Includes: PROPHYLAXIS forvenous thrombosis, systemic embolization; TREATMENT for venous thrombosis and/or pulmonary embolus.HIGH RISK: Target INR is 2.5-3.5 for patients with mechanical heart valves.SODIUM NA-STAT [id number] 02:33:00 Test Item Value Reference Range Comments SODIUM (BEAKER) (test snwz=715) 138 meq/L 135-148 POTASSIUM-STAT [id number] 02:33:00 Test Item Value Reference Range Comments POTASSIUM (BEAKER) (test azfl=165) 4.4 meq/L 3.6-5.5 BLOOD GAS, [id number] 02:33:00 Test Item Value Reference Range Comments PH ARTERIAL (BEAKER) (test ezgc=532) 7.39 7.35-7.45 PCO2 ARTERIAL (BEAKER) (test ilwc=551) 42 mmHg 35-45 PO2 ARTERIAL (BEAKER) (test hsjg=873) 143 mmHg 80-90 O2 SATURATION ARTERIAL (BEAKER) (test plcw=418) 98.9 % 96.0-97.0 HCO3 ARTERIAL (BEAKER) (test uiqv=183) 25 mmol/L 21-29 BASE EXCESS ARTERIAL (BEAKER) (test bmsa=523) -0.3 mmol/L -2.0-3.0 PATIENT TEMPERATURE (BEAKER) (test deqr=7095) 35.7 C FIO2 (BEAKER) (test ozaa=6949) 100.0 % GLUCOSE-STAT [id number] 02:33:00 Test Item Value Reference Range Comments GLUCOSE RANDOM (BEAKER) (test hpzl=400) 169 mg/dL 70-110 HGB/HCT (H&H) - STAT [id number] 02:33:00 Test Item Value Reference Range Comments HEMOGLOBIN (BEAKER) (test wddl=871) 8.1 g/dL 13.0-16.8 HEMATOCRIT (BEAKER) (test dgtc=214) 24.0 % 40.0-50.0 CALCIUM, [id number] 02:32:00 Test Item Value Reference Range Comments CALCIUM IONIZED (BEAKER) (test cnhc=604) 0.97 mmol/L 1.12-1.27 PH, BLOOD (BEAKER) (test vvjh=6529) 7.37 BLOOD GAS, [id number] 01:52:00 Test Item Value Reference Range Comments PH ARTERIAL (BEAKER) (test gsey=708) 7.28 7.35-7.45 PCO2 ARTERIAL (BEAKER) (test dodd=758) 55 mmHg 35-45 PO2 ARTERIAL (BEAKER) (test kpbh=754) 350 mmHg 80-90 O2 SATURATION ARTERIAL (BEAKER) (test ihsf=781) 99.7 % 96.0-97.0 HCO3 ARTERIAL (BEAKER) (test rzkp=840) 25 mmol/L 21-29 BASE EXCESS ARTERIAL (BEAKER) (test velb=883) -1.6 mmol/L -2.0-3.0 PATIENT TEMPERATURE (BEAKER) (test ssrm=4576) 36.8 C FIO2 (BEAKER) (test nlgo=2857) 85.0 % GLUCOSE-STAT [id number] 01:52:00 Test Item Value Reference Range Comments GLUCOSE RANDOM (BEAKER) (test wwfg=921) 167 mg/dL 70-110 HGB/HCT (H&H) - STAT [id number] 01:52:00 Test Item Value Reference Range Comments HEMOGLOBIN (BEAKER) (test pruq=138) 7.9 g/dL 13.0-16.8 HEMATOCRIT (BEAKER) (test tmuz=408) 23.0 % 40.0-50.0 SODIUM NA-STAT [id number] 01:50:00 Test Item Value Reference Range Comments SODIUM (BEAKER) (test ireh=362) 138 meq/L 135-148 POTASSIUM-STAT [id number] 01:50:00 Test Item Value Reference Range Comments POTASSIUM (BEAKER) (test yhpk=091) 5.3 meq/L 3.6-5.5 POTASSIUM-STAT [id number] 01:26:00 Test Item Value Reference Range Comments POTASSIUM (BEAKER) (test 6.1 meq/L 3.6-5.5 SPECIMEN WAS NOT HEMOLYZED nqlp=214) HGB/HCT (H&H) - STAT [id number] 01:25:00 Test Item Value Reference Range Comments HEMOGLOBIN (BEAKER) (test zmkn=884) 8.3 g/dL 13.0-16.8 HEMATOCRIT (BEAKER) (test mvvk=501) 24.0 % 40.0-50.0 BLOOD GAS, [id number] 01:24:00 Test Item Value Reference Range Comments PH ARTERIAL (BEAKER) (test psik=812) 7.36 7.35-7.45 PCO2 ARTERIAL (BEAKER) (test smbt=994) 45 mmHg 35-45 PO2 ARTERIAL (BEAKER) (test ktey=903) 333 mmHg 80-90 O2 SATURATION ARTERIAL (BEAKER) (test fkhb=993) 99.7 % 96.0-97.0 HCO3 ARTERIAL (BEAKER) (test grha=817) 25 mmol/L 21-29 BASE EXCESS ARTERIAL (BEAKER) (test pcmf=967) -0.6 mmol/L -2.0-3.0 PATIENT TEMPERATURE (BEAKER) (test olcm=3378) 36.5 C FIO2 (BEAKER) (test qyrp=6320) 80.0 % GLUCOSE-STAT [id number] 01:24:00 Test Item Value Reference Range Comments GLUCOSE RANDOM (BEAKER) (test fklm=159) 169 mg/dL 70-110 SODIUM NA-STAT [id number] 01:23:00 Test Item Value Reference Range Comments SODIUM (BEAKER) (test imjc=771) 137 meq/L 135-148 BLOOD GAS, [id number] 01:00:00 Test Item Value Reference Range Comments PH ARTERIAL (BEAKER) (test nfkp=888) 7.42 7.35-7.45 PCO2 ARTERIAL (BEAKER) (test sdsp=939) 30 mmHg 35-45 PO2 ARTERIAL (BEAKER) (test favm=222) 282 mmHg 80-90 O2 SATURATION ARTERIAL (BEAKER) (test cjim=586) 99.7 % 96.0-97.0 HCO3 ARTERIAL (BEAKER) (test igaa=764) 20 mmol/L 21-29 BASE EXCESS ARTERIAL (BEAKER) (test ukll=894) -5.0 mmol/L -2.0-3.0 PATIENT TEMPERATURE (BEAKER) (test mqps=1151) 33.0 C FIO2 (BEAKER) (test fwen=5093) 70.0 % POTASSIUM-STAT [id number] 01:00:00 Test Item Value Reference Range Comments POTASSIUM (BEAKER) (test mwcg=195) 5.9 meq/L 3.6-5.5 GLUCOSE-STAT [id number] 01:00:00 Test Item Value Reference Range Comments GLUCOSE RANDOM (BEAKER) (test fokr=358) 143 mg/dL 70-110 HGB/HCT (H&H) - STAT [id number] 01:00:00 Test Item Value Reference Range Comments HEMOGLOBIN (BEAKER) (test mdhj=100) 8.6 g/dL 13.0-16.8 HEMATOCRIT (BEAKER) (test rsfq=382) 25.0 % 40.0-50.0 SODIUM NA-STAT [id number] 00:58:00 Test Item Value Reference Range Comments SODIUM (BEAKER) (test hqtv=876) 135 meq/L 135-148 BLOOD GAS, [id number] 00:31:00 Test Item Value Reference Range Comments PH ARTERIAL (BEAKER) (test apyf=059) 7.40 7.35-7.45 PCO2 ARTERIAL (BEAKER) (test qlhp=708) 31 mmHg 35-45 PO2 ARTERIAL (BEAKER) (test iina=953) 312 mmHg 80-90 O2 SATURATION ARTERIAL (BEAKER) (test ptsw=904) 99.7 % 96.0-97.0 HCO3 ARTERIAL (BEAKER) (test xbak=531) 20 mmol/L 21-29 BASE EXCESS ARTERIAL (BEAKER) (test gkqb=941) -5.8 mmol/L -2.0-3.0 PATIENT TEMPERATURE (BEAKER) (test eymu=3172) 30.0 C FIO2 (BEAKER) (test mqsk=1652) 60.0 % POTASSIUM-STAT [id number] 00:31:00 Test Item Value Reference Range Comments POTASSIUM (BEAKER) (test sgan=413) 5.6 meq/L 3.6-5.5 GLUCOSE-STAT [id number] 00:31:00 Test Item Value Reference Range Comments GLUCOSE RANDOM (BEAKER) (test awpu=495) 157 mg/dL 70-110 HGB/HCT (H&H) - STAT [id number] 00:31:00 Test Item Value Reference Range Comments HEMOGLOBIN (BEAKER) (test whbk=337) 9.1 g/dL 13.0-16.8 HEMATOCRIT (BEAKER) (test seqi=322) 27.0 % 40.0-50.0 SODIUM NA-STAT [id number] 00:30:00 Test Item Value Reference Range Comments SODIUM (BEAKER) (test nyfh=257) 135 meq/L 135-148 POTASSIUM-STAT [id number] 00:07:00 Test Item Value Reference Range Comments POTASSIUM (BEAKER) (test uldu=846) 6.6 meq/L 3.6-5.5 BLOOD GAS, [id number] 00:04:00 Test Item Value Reference Range Comments PH ARTERIAL (BEAKER) (test smfb=701) 7.41 7.35-7.45 PCO2 ARTERIAL (BEAKER) (test hmap=444) 36 mmHg 35-45 PO2 ARTERIAL (BEAKER) (test srvm=701) 447 mmHg 80-90 O2 SATURATION ARTERIAL (BEAKER) (test aply=261) 99.9 % 96.0-97.0 HCO3 ARTERIAL (BEAKER) (test ffxw=627) 23 mmol/L 21-29 BASE EXCESS ARTERIAL (BEAKER) (test aoej=940) -2.4 mmol/L -2.0-3.0 PATIENT TEMPERATURE (BEAKER) (test bwft=5095) 32.0 C FIO2 (BEAKER) (test kdhv=2789) 80.0 % SODIUM NA-STAT [id number] 00:04:00 Test Item Value Reference Range Comments SODIUM (BEAKER) (test nais=832) 130 meq/L 135-148 GLUCOSE-STAT [id number] 00:04:00 Test Item Value Reference Range Comments GLUCOSE RANDOM (BEAKER) (test xtto=988) 196 mg/dL 70-110 HGB/HCT (H&H) - STAT [id number] 00:04:00 Test Item Value Reference Range Comments HEMOGLOBIN (BEAKER) (test btni=170) 9.0 g/dL 13.0-16.8 HEMATOCRIT (BEAKER) (test gran=802) 26.0 % 40.0-50.0 HEMOGLOBIN [id number] 22:45:00 Test Item Value Reference Range Comments HEMOGLOBIN A1C (BEAKER) (test gkjg=581) 5.6 % 4.3-6.1 [id number] 22:23:00 Test Item Value Reference Range Comments THYROID STIMULATING HORMONE (BEAKER) (test 0.37 uIU/mL 0.35-4.94 fwgh=702) CREATINE KINASE (CK), TOTAL AND [id number] 21:58:00 Test Item Value Reference Range Comments CREATINE KINASE TOTAL (BEAKER) (test lvpq=683) 99 U/L 29-200 CREATINE KINASE-MB (BEAKER) (test qqqs=508) 0.7 ng/mL 0.0-6.6 CREATINE KINASE-MB INDEX (BEAKER) (test ewgp=360) 0.7 % CK-MB Reference Range:<6.7 Normal6.7-10.0 Borderline>10.0 AbnormalTROPONIN [id number] 21:58:00 Test Item Value Reference Range Comments TROPONIN I (BEAKER) (test qsqj=419) < ng/mL 0.00-0.03 Troponin I (TnI) levels must be interpreted [...] failure, acidosis, acute neurological disease, and persistent tachyarrhythmia.BASIC METABOLIC [id number] 21:52:00 Test Item Value Reference Range Comments SODIUM (BEAKER) (test 137 meq/L 136-145 hfpi=177) POTASSIUM (BEAKER) (test 4.2 meq/L 3.5-5.1 izfa=745) CHLORIDE (BEAKER) (test 106 meq/L 98-107 jrsi=703) CO2 (BEAKER) (test 22 meq/L 22-29 qyem=086) BLOOD UREA NITROGEN 15 mg/dL 7-21 (BEAKER) (test vcao=400) CREATININE (BEAKER) (test 1.47 mg/dL 0.57-1.25 msbh=470) GLUCOSE RANDOM (BEAKER) 110 mg/dL 70-105 (test boso=315) CALCIUM (BEAKER) (test 8.6 mg/dL 8.4-10.2 nmwq=899) EGFR (BEAKER) (test 58 mL/min/1.73 sq m ESTIMATED GFR IS NOT eneh=3796) ACCURATE CREATININE CLEARANCE IN PREDICTING GLOMERULAR FILTRATION RATE. ESTIMATED GFR IS NOT APPLICABLE FOR DIALYSIS PATIENTS. LIPID [id number] 21:52:00 Test Item Value Reference Range Comments TRIGLYCERIDES (BEAKER) (test uiha=644) 72 mg/dL CHOLESTEROL (BEAKER) (test nule=180) 161 mg/dL HDL CHOLESTEROL (BEAKER) (test fbys=317) 47 mg/dL LDL CHOLESTEROL CALCULATED (BEAKER) (test 100 mg/dL qfkq=254) Triglyceride Reference Range: Low Risk <150 Borderline 150- 199 High Risk 200-499 Very High Risk >=500Cholesterol Reference Range: Low Risk <200 Borderline 200-239 High Risk > 240HDL Cholesterol Reference Range: Low Risk >=60 High Risk <40LDL Cholesterol Reference Range: Optimal <100 Near Optimal 100-129 Borderline 130-159 High 160-189 Very High >=190HEPATIC FUNCTION [id number] 21:52:00 Test Item Value Reference Range Comments TOTAL PROTEIN (BEAKER) (test ogxv=367) 6.6 gm/dL 6.0-8.3 ALBUMIN (BEAKER) (test mfqq=1421) 3.4 g/dL 3.5-5.0 BILIRUBIN TOTAL (BEAKER) (test mvaa=687) 0.3 mg/dL 0.2-1.2 BILIRUBIN DIRECT (BEAKER) (test wcdy=696) 0.1 mg/dL 0.1-0.5 ALKALINE PHOSPHATASE (BEAKER) (test ihdl=511) 66 U/L 40-150 AST (SGOT) (BEAKER) (test pnwd=236) 10 U/L 5-34 ALT (SGPT) (BEAKER) (test vedw=463) 8 U/L 6-55 [id number] 21:51:00 Test Item Value Reference Range Comments PHOSPHORUS (BEAKER) (test lupp=634) 2.6 mg/dL 2.3-4.7 [id number] 21:51:00 Test Item Value Reference Range Comments MAGNESIUM (BEAKER) (test bwcq=045) 1.9 mg/dL 1.6-2.6 [id number] 21:47:00 Test Item Value Reference Range Comments PARTIAL THROMBOPLASTIN TIME (BEAKER) (test > seconds 22.5-36.0 yzfo=637) GLUCOSE-STAT [id number] 21:44:00 Test Item Value Reference Range Comments GLUCOSE RANDOM (BEAKER) (test prme=734) 108 mg/dL 70-110 SODIUM NA-STAT [id number] 21:44:00 Test Item Value Reference Range Comments SODIUM (BEAKER) (test ajou=129) 136 meq/L 135-148 POTASSIUM-STAT [id number] 21:44:00 Test Item Value Reference Range Comments POTASSIUM (BEAKER) (test cdot=291) 4.5 meq/L 3.6-5.5 BLOOD GAS, [id number] 21:44:00 Test Item Value Reference Range Comments PH ARTERIAL (BEAKER) (test lkly=319) 7.46 7.35-7.45 PCO2 ARTERIAL (BEAKER) (test zjcc=373) 32 mmHg 35-45 PO2 ARTERIAL (BEAKER) (test jiid=558) 566 mmHg 80-90 O2 SATURATION ARTERIAL (BEAKER) (test oyus=390) 99.9 % 96.0-97.0 HCO3 ARTERIAL (BEAKER) (test byct=267) 22 mmol/L 21-29 BASE EXCESS ARTERIAL (BEAKER) (test lvqb=669) -1.4 mmol/L -2.0-3.0 PATIENT TEMPERATURE (BEAKER) (test hjje=3612) 36.0 C FIO2 (BEAKER) (test jlxo=0363) 100.0 % HGB/HCT (H&H) - STAT [id number] 21:44:00 Test Item Value Reference Range Comments HEMOGLOBIN (BEAKER) (test ttbi=562) 12.3 g/dL 13.0-16.8 HEMATOCRIT (BEAKER) (test ucbm=837) 36.0 % 40.0-50.0 PROTHROMBIN TIME/[id number] 21:24:00 Test Item Value Reference Range Comments PROTIME (BEAKER) (test vhoa=828) 15.0 seconds 11.7-14.7 INR (BEAKER) (test komj=807) 1.2 <=5.9 RECOMMENDED COUMADIN/WARFARIN INR THERAPY RANGESSTANDARD DOSE: 2.0 - 3.0 Includes: PROPHYLAXIS forvenous thrombosis, systemic embolization; TREATMENT for venous thrombosis and/or pulmonary embolus.HIGH RISK: Target INR is 2.5-3.5 for patients with mechanical heart valves.CBC W/PLT COUNT & AUTO [id number] 21:18:00 Test Item Value Reference Range Comments WHITE BLOOD CELL COUNT (BEAKER) (test qrtb=131) 4.2 K/ L 3.5-10.5 RED BLOOD CELL COUNT (BEAKER) (test qsvk=647) 4.05 M/ L 4.63-6.08 HEMOGLOBIN (BEAKER) (test jgdf=965) 11.3 GM/DL 13.7-17.5 HEMATOCRIT (BEAKER) (test peen=567) 36.8 % 40.1-51.0 MEAN CORPUSCULAR VOLUME (BEAKER) (test tidu=777) 90.9 fL 79.0-92.2 MEAN CORPUSCULAR HEMOGLOBIN (BEAKER) (test 27.9 pg 25.7-32.2 rljh=120) MEAN CORPUSCULAR HEMOGLOBIN CONC (BEAKER) (test 30.7 GM/DL 32.3-36.5 vjdk=176) RED CELL DISTRIBUTION WIDTH (BEAKER) (test 13.1 % 11.6-14.4 hzqp=509) PLATELET COUNT (BEAKER) (test ojsb=841) 106 K/CU MM 150-450 MEAN PLATELET VOLUME (BEAKER) (test inlb=743) 14.5 fL 9.4-12.4 NUCLEATED RED BLOOD CELLS (BEAKER) (test 0 /100 WBC 0-0 zcdb=163) NEUTROPHILS RELATIVE PERCENT (BEAKER) (test 60 % fcbo=275) LYMPHOCYTES RELATIVE PERCENT (BEAKER) (test 28 % ouhr=624) MONOCYTES RELATIVE PERCENT (BEAKER) (test 8 % ixoo=729) EOSINOPHILS RELATIVE PERCENT (BEAKER) (test 3 % bnoc=974) BASOPHILS RELATIVE PERCENT (BEAKER) (test 1 % hvst=433) NEUTROPHILS ABSOLUTE COUNT (BEAKER) (test 2.51 K/ L 1.78-5.38 ikrw=500) LYMPHOCYTES ABSOLUTE COUNT (BEAKER) (test 1.17 K/ L 1.32-3.57 jhmd=639) MONOCYTES ABSOLUTE COUNT (BEAKER) (test 0.35 K/ L 0.30-0.82 urtx=205) EOSINOPHILS ABSOLUTE COUNT (BEAKER) (test 0.13 K/ L 0.04-0.54 jijo=558) BASOPHILS ABSOLUTE COUNT (BEAKER) (test 0.02 K/ L 0.01-0.08 zxxo=960) IMMATURE GRANULOCYTES-RELATIVE PERCENT (BEAKER) 0 % 0-1 (test cpep=0187) [id number] 19:52:00 Test Item Value Reference Range Comments ACTIVATED CLOTTING TIME 213 sec TESTED AT [facility] [address] (BEAKER) (test mqtd=891) [facility] [address]
[2018-01-16] MEDS ORDERED: NA CHLORIDE 0.9% 500 ML ONE (16:12)
[2018-01-16 16:46] LABS: Absolute Monocytes 0.6 K/uL (0.1-1.3); Basophils % 0.9 % (0-1.3); Eosinophils % 2.6 % (0-4.4); Hematocrit 33.3 % (39.6-49.0); Lymphocytes % 17.1 % (15.3-44.8); MCH 28.4 pg (27.0-35.0); MCV 87.6 fL (80-100); MPV 10.9 fL (7.6-11.3); Monocytes % 10.1 % (3.3-12.3)
[2018-01-16 16:50] LABS: Protime INR 1.15
--- NOTE | 2018-01-16 16:56 | RAD REPORT ---
EXAM DESCRIPTION: RAD - Chest Single View - 01/16/2018 4:41 pm CLINICAL HISTORY: Hypotension, recent CABG surgery COMPARISON: None. TECHNIQUE: AP portable chest image was obtained 1636 hours . FINDINGS: No pulmonary edema. No focal consolidation. Hazy opacification in the mid left lung field is probably a combination of motion degradation and atelectasis. Repeat imaging could be performed if the patient has any symptoms referable to the left mid chest. Heart and vasculature are normal. No m easurable pleural effusion and no pneumothorax. No gross bony abnormality seen. No acute aortic findi ngs suspected. IMPRESSION: No acute cardiopulmonary process. Hazy opacification mid left lung field is believed to be artifact of atelectasis and motion degradati on. Repeat imaging can be performed as warranted.
--- NOTE | 2018-01-16 17:04 | EKG ---
Test Date: 2018-01-16 Test Time: 16:07:03 Window Clerk: BULMARO MEASUREMENT RESULTS: Intervals: Rate: 63 DC: 156 QRSD: 72 QT: 394 QTc: 403 [place]: P: 28 DC: 156 QRS: 50 T: 58 INTERPRETIVE STATEMENTS: Normal sinus rhythm ST elevation, consider early repolarization, pericarditis, or injury Abnormal ECG No previous ECG available for comparison Electronically Signed On 01-16-18 17:03:45 CDT by Pelon Casiano
[2018-01-16 18:03] LABS: ALT/SGPT 23 U/L (12-78); AST/SGOT 23 U/L (15-37); Albumin 3.3 g/dL (3.4-5.0); Alkaline Phosphatase 95 U/L (45-117); BUN Blood Urea Nitrogen 24 mg/dL (7-18); Bicarbonate 27 mmol/L (21-32); Bilirubin Direct 0.2 mg/dL (0-0.2); Bilirubin Total 0.7 mg/dL (0.2-1.0); CKMB Creatine Kinase MB < 1.0 ng/mL (0.3-3.6); Creatine Phosphokinase 50 U/L (39-308); Glucose Level 87 mg/dL (74-106); NT PRO-BNP 544 pg/mL (<125); Sodium Level 135 mmol/L (136-145)
--- NOTE | 2018-01-16 18:40 | EDPHYS ---
Physician Documentation [facility] Name: Justin Payne Jr Age: 67 yrs Sex: Male : 1950 Arrival Date: 01/16/2018 Time: 15:38 Bed 6 Private MD: ED Physician Yonatan Marcelino HPI: 01/16 16:21 This 67 yrs old Black Male presents to ER via Wheelchair with complaints of Low Blood rn Pressure. 16:21 Reports sent here by pcp for low blood pressure, denies any symptoms, states went to rn pcp for scheduled f/u, feels fine, no chest pain/sob. No syncope. Had CABG done December 30. No complications since then.. Onset: The symptoms/episode began/occurred at an unknown time. Severity of symptoms: At their worst the symptoms were mild in the emergency department the symptoms are unchanged. The patient has experienced similar episodes in the past. Historical: - Allergies: 15:56 No Known Allergies; iw - Home Meds: 15:56 Lipitor 80 mg Oral tab 1 tab once daily [Active]; aspirin 81 mg Oral TbEC 1 tab once iw daily [Active]; Tylenol #3 Oral [Active]; - PMHx: 15:56 Myocardial infarction; Glaucoma; iw - PSHx: 15:56 CABG; back; iw - Immunization history:: Adult Immunizations not up to date. - Social history:: Smoking status: Patient/guardian denies using tobacco. - Ebola Screening: : Patient negative for fever greater than or equal to 101.5 degrees Fahrenheit, and additional compatible Ebola Virus Disease symptoms Patient denies exposure to infectious person Patient denies travel to an Ebola-affected area in the 21 days before illness onset No symptoms or risks identified at this time. - Family history:: not pertinent. - Hospitalizations: : No recent hospitalization is reported. ROS: 16:21 Constitutional: Negative for fever, chills, and weight loss, Eyes: Negative for injury, rn pain, redness, and discharge, Neck: Negative for injury, pain, and swelling, Cardiovascular: Negative for chest pain, palpitations, and edema, Respiratory: Negative for shortness of breath, cough, wheezing, and pleuritic chest pain, Abdomen/GI: Negative for abdominal pain, nausea, vomiting, diarrhea, and constipation, MS/Extremity: Negative for injury and deformity, Skin: Negative for injury, rash, and discoloration, Neuro: Negative for headache, weakness, numbness, tingling, and seizure. Exam: 16:21 Constitutional: This is a well developed, well nourished patient who is awake, alert, rn and in no acute distress. Head/Face: Normocephalic, atraumatic. Eyes: Pupils equal round and reactive to light, extra-ocular motions intact. Lids and lashes normal. Conjunctiva and sclera are non-icteric and not injected. Cornea within normal limits. Periorbital areas with no swelling, redness, or edema. Chest/axilla: + well healed sternotomy scar Cardiovascular: Regular rate and rhythm with a normal S1 and S2. No gallops, murmurs, or rubs. Normal PMI, no JVD. No pulse deficits. Respiratory: Lungs have equal breath sounds bilaterally, clear to auscultation and percussion. No rales, rhonchi or wheezes noted. No increased work of breathing, no retractions or nasal flaring. Abdomen/GI: Soft, non-tender, with normal bowel sounds. No distension or tympany. No guarding or rebound. No evidence of tenderness throughout. Skin: Warm, dry with normal turgor. Normal color with no rashes, no lesions, and no evidence of cellulitis. MS/ Extremity: Pulses equal, no cyanosis. Neurovascular intact. Full, normal range of motion. Equal circumference. Neuro: Awake and alert, GCS 15, oriented to person, place, time, and situation. Cranial nerves II-XII grossly intact. Motor strength 5/5 in all extremities. Sensory grossly intact. Vital Signs: 15:56 BP 96 / 65; Pulse 66; Resp 16 S; Temp 97.5; Pulse Ox 95% on R/A; iw 16:31 BP 105 / 60; Pulse 63; Resp 15; Pulse Ox 100% on R/A; sv 17:30 BP 106 / 58; Pulse 60; Resp 16; Pulse Ox 100% ; sv 18:45 BP 121 / 70; Pulse 61; Resp 17; Temp 97.7(O); Pulse Ox 100% on R/A; Pain 0/10; bs1 19:30 BP 121 / 66; Pulse 67; Resp 15; Temp 97.9(O); Pulse Ox 99% on R/A; Pain 0/10; bs1 MDM: 15:52 Patient medically screened. rn 18:37 Differential Diagnosis pericardial effusion, pericarditis, dehydration. Data reviewed: rn vital signs, nurses notes, lab test result(s), EKG, radiologic studies, plain films, and as a result, I will admit patient. Counseling: I had a detailed discussion with the patient and/or guardian regarding: the historical points, exam findings, and any diagnostic results supporting the discharge/admit diagnosis, lab results, radiology results, the need to transfer to another facility, for higher level of care. Response to treatment: the patient's symptoms have mildly improved after treatment. ED course: Pt with elevated troponin, mild ST elevation diffusely, does not appear to be acute AL, more likely pericarditis with pericardial effusion, bedside u/s shows small effusion, no tamponade physiology, but unable to perform formal u/s here, transferred to [facility] for cardiology eval given recent cabg, and need for ECHO. Pt asymptomatic. . 01/16 15:58 Order name: Basic Metabolic Panel; Complete Time: 18:15 01/16 15:58 Order name: CBC with Diff; Complete Time: 16:53 01/16 15:58 Order name: Ckmb; Complete Time: 18:15 01/16 15:58 Order name: CPK; Complete Time: 18:15 01/16 15:58 Order name: LFT's; Complete Time: 18:15 01/16 15:58 Order name: NT PRO-BNP; Complete Time: 18:15 01/16 15:58 Order name: PT-INR; Complete Time: 16:53 01/16 15:58 Order name: Ptt, Activated; Complete Time: 16:53 01/16 15:58 Order name: Troponin (emerg Dept Use Only); Complete Time: 17:56 01/16 15:58 Order name: XRAY Chest (1 view); Complete Time: 17:00 rn 01/16 16:05 Order name: Procalcitonin; Complete Time: 17:56 rn 01/16 16:05 Order name: Blood Culture Adult (2) rn 01/16 15:58 Order name: EKG; Complete Time: 15:58 01/16 15:58 Order name: Cardiac monitoring; Complete Time: 16:12 rn 01/16 15:58 Order name: EKG - Nurse/Tech; Complete Time: 16:12 rn 01/16 15:58 Order name: IV Saline Lock; Complete Time: 16:35 rn 01/16 15:58 Order name: Labs collected and sent; Complete Time: 16:35 rn 01/16 15:58 Order name: O2 Per Protocol; Complete Time: 16:12 rn 01/16 15:58 Order name: O2 Sat Monitoring; Complete Time: 16:12 rn 01/16 16:43 Order name: Labs - recollect needed; Complete Time: 17:16 bd Administered Medications: 16:27 Drug: NS 0.9% 500 ml Route: IV; Rate: bolus; Site: right forearm; sv 17:00 Follow up: Response: No adverse reaction; IV Status: Completed infusion; IV Intake: sv 500ml 19:01 Drug: [place] 5 mg-325 mg 1 tabs Route: PO; sg 19:57 Follow up: Response: No adverse reaction bs1 Disposition: 01/16/18 18:39 Transfer ordered to [facility]. Diagnosis are Hypotension, Non-specific ST elevation. - Reason for transfer: Higher level of care. - Accepting physician is . - Condition is Stable. - Problem is new. - Symptoms have improved. Signatures: Dispatcher [employer] EDLA Destiny Helton Stephanie, RN Herbert Rick RN RN sg Williams, Irene, RN RN iw Nieto, Roman, MD MD rn Salazar, Brittany, RN RN bs1 Corrections: (The following items were deleted from the chart) 18:06 17:14 Chest For PE Angio+CT.RAD.BRZ ordered. [facility] EDLA 19:58 18:39 01/16/2018 18:39 Transfer ordered to [facility]. Diagnosis is bs1 Hypotension; Non-specific ST elevation. Reason for transfer: Higher level of care. Accepting physician is . Condition is Stable. Problem is new. Symptoms have improved. rn
--- NOTE | 2018-01-16 18:40 | ER ---
Nurse's Notes [facility] Name: Justin Payne Jr Age: 67 yrs Sex: Male : 1950 Arrival Date: 01/16/2018 Time: 15:38 Bed 6 Private MD: Diagnosis: Hypotension;Non-specific ST elevation Presentation: 01/16 15:53 Presenting complaint: Patient states: was sent from Dr. Gandhi office for low BP iw reading, pt had quadruple bypass on December 30 at [facility], has had dizziness when standing since the surgery, pt denies CP or SOB. Transition of care: patient was received from another setting of care (ambulatory primary care physician practice). Onset of symptoms was January 16, 2018. Risk Assessment: Do you want to hurt yourself or someone else? Patient reports no desire to harm self or others. Initial Sepsis Screen: Does the patient meet any 2 criteria? No. Patient's initial sepsis screen is negative. Does the patient have a suspected source of infection? No. Patient's initial sepsis screen is negative. Care prior to arrival: None. 15:53 Method Of Arrival: Wheelchair iw 15:53 Acuity: STER[place] 2 iw Historical: - Allergies: 15:56 No Known Allergies; iw - Home Meds: 15:56 Lipitor 80 mg Oral tab 1 tab once daily [Active]; aspirin 81 mg Oral TbEC 1 tab once iw daily [Active]; Tylenol #3 Oral [Active]; - PMHx: 15:56 Myocardial infarction; Glaucoma; iw - PSHx: 15:56 CABG; back; iw - Immunization history:: Adult Immunizations not up to date. - Social history:: Smoking status: Patient/guardian denies using tobacco. - Ebola Screening: : Patient negative for fever greater than or equal to 101.5 degrees Fahrenheit, and additional compatible Ebola Virus Disease symptoms Patient denies exposure to infectious person Patient denies travel to an Ebola-affected area in the 21 days before illness onset No symptoms or risks identified at this time. - Family history:: not pertinent. - Hospitalizations: : No recent hospitalization is reported. Screenin:05 Abuse screen: Denies threats or abuse. Denies injuries from another. Nutritional sv screening: No deficits noted. Tuberculosis screening: No symptoms or risk factors identified. Fall Risk None identified. Assessment: 16:05 General: Appears in no apparent distress. comfortable, slender, Behavior is calm, sv cooperative, appropriate for age. Pain: Denies pain. Neuro: Level of Consciousness is awake, alert, obeys commands, Oriented to person, place, time, situation, Moves all extremities. Full function Speech is normal, Denies dizziness. Cardiovascular: Patient's skin is warm and dry. Pulses are 3+ in right radial artery and left radial artery Rhythm is sinus rhythm. Respiratory: Respiratory effort is even, unlabored, Respiratory pattern is regular, symmetrical. Respiratory: Denies shortness of breath. GI: No signs and/or symptoms were reported involving the gastrointestinal system. : No signs and/or symptoms were reported regarding the genitourinary system. EENT: No signs and/or symptoms were reported regarding the EENT system. Derm: Skin is normal, black. Musculoskeletal: No signs and/or symptoms reported regarding the musculoskeletal system. 17:10 Reassessment: Patient appears in no apparent distress at this time. No changes from sv previously documented assessment. Patient and/or family updated on plan of care and expected duration. Pain level reassessed. Patient is alert, oriented x 3, equal unlabored respirations, skin warm/dry/pink. 17:55 Reassessment: pt repositioned for comfortable. sg 19:02 Reassessment: Report received from Ines Egan RN. bs1 19:02 General: Appears in no apparent distress. comfortable, slender, Behavior is calm, bs1 cooperative, appropriate for age. Pain: Denies pain. Neuro: Level of Consciousness is awake, alert, obeys commands, Oriented to person, place, time, situation, Appropriate for age Speech is normal, Facial symmetry appears normal, Denies dizziness. Cardiovascular: Denies chest pain, shortness of breath, Heart tones S1 S2 present Capillary refill < 3 seconds Patient's skin is warm and dry. Pulses are 3+ in left radial artery and right radial artery Rhythm is sinus rhythm. Respiratory: Airway is patent Trachea midline Respiratory effort is even, unlabored, Respiratory pattern is regular, symmetrical, Breath sounds are clear bilaterally. Denies shortness of breath. GI: No signs and/or symptoms were reported involving the gastrointestinal system. : No signs and/or symptoms were reported regarding the genitourinary system. EENT: No signs and/or symptoms were reported regarding the EENT system. Derm: Skin is intact, Skin is pink, warm \T\ dry. normal. Musculoskeletal: No signs and/or symptoms reported regarding the musculoskeletal system. Vital Signs: 15:56 BP 96 / 65; Pulse 66; Resp 16 S; Temp 97.5; Pulse Ox 95% on R/A; iw 16:31 BP 105 / 60; Pulse 63; Resp 15; Pulse Ox 100% on R/A; sv 17:30 BP 106 / 58; Pulse 60; Resp 16; Pulse Ox 100% ; sv 18:45 BP 121 / 70; Pulse 61; Resp 17; Temp 97.7(O); Pulse Ox 100% on R/A; Pain 0/10; bs1 19:30 BP 121 / 66; Pulse 67; Resp 15; Temp 97.9(O); Pulse Ox 99% on R/A; Pain 0/10; bs1 ED Course: 15:38 Patient arrived in ED. mr 15:52 Yonatan Marcelino MD is Attending Physician. rn 15:55 Triage completed. iw 15:56 Arm band placed on. iw 16:04 Ines Egan RN is Primary Nurse. iw 16:05 Patient has correct armband on for positive identification. Placed in gown. Bed in low sv position. Call light in reach. Side rails up X2. Adult w/ patient. vocal artist on. Pulse ox on. NIBP on. Door closed. Warm blanket given. Head of bed elevated. 16:05 Initial lab(s) drawn, by me, sent to lab. First set of blood cultures drawn by me. sv Inserted saline lock: 20 gauge in right forearm, using aseptic technique. Blood collected. Flushed right forearm with 5 ml normal saline. 16:20 Second set of blood cultures drawn by me. sv 16:23 EKG done, by donor services technician. reviewed by Yonatan Marcelino MD. sm3 16:32 X-ray completed. Portable x-ray completed in exam room. Patient tolerated procedure ml well. 16:33 XRAY Chest (1 view) In Process Unspecified. EDMS 17:45 Radiology exam delayed due to lab results not completed at this time. (BUN/Creatinine). vr 19:00 Report given to Rylee CARNEY. sv 19:41 Primary Nurse role handed off by Ines Egan RN rg2 19:51 Niurka Ding, RN is Primary Nurse. bs1 19:56 No provider procedures requiring assistance completed. Patient transferred, IV remains bs1 in place. intact. Administered Medications: 16:27 Drug: NS 0.9% 500 ml Route: IV; Rate: bolus; Site: right forearm; sv 17:00 Follow up: Response: No adverse reaction; IV Status: Completed infusion; IV Intake: sv 500ml 19:01 Drug: [place] 5 mg-325 mg 1 tabs Route: PO; sg 19:57 Follow up: Response: No adverse reaction bs1 Intake: 17:00 IV: 500ml; Total: 500ml. sv Outcome: 18:39 ER care complete, transfer ordered by . rn 19:57 Transferred by ground EMS to [facility], Transfer form completed. bs1 X-rays sent w/ patient. Note: Report given to [facility] 19:57 Condition: stable 19:57 Instructed on the need for transfer, Demonstrated understanding of instructions, follow-up care. 19:58 Patient left the ED. bs1 Signatures: Dispatcher [employer] EDReynold Lennon rg2 Ines Egan, RN Herbert Rick RN ANGELIKA Milana Cabral, Ryann, RN ANGELIKA Schmidt, Yonatan Marcos MD MD rn Davis, Victoria vr Salazar, Brittany, RN RN bs1 Tiffany Stuart 3
[2018-01-16] MEDS ORDERED: HYDROCODONE/APAP 5/325 MG TAB ONE (19:02)
== END 2018-01-16 19:58 | disposition short-term general hospital (02) ==
LOC: ER 15:35
DX: R94.31 Abnormal electrocardiogram [ECG] [EKG] (principal); I25.2 Old myocardial infarction; Z95.1 Presence of aortocoronary bypass graft; Z79.82 Long term (current) use of aspirin
CPT/HCPCS: 36415; 71045; 80048; 80076; 82550; 82553; 83880; 84145; 84484; 85025; 85610; 85730; 87040; 93005; 96360; 99285

== ENCOUNTER 2018-01-30 22:51 | Emergency (ER) | payer OTHER ==
--- OUTSIDE RECORDS SUMMARY | 2018-01-30 22:54 | XMS REPORT | Clinical Summary ---
:1950 Author Organization [facility] Address [address] [place] [address] Phone Care Team Providers Name Role Phone Unavailable Primary Care Provider Unavailable Allergies No Known Allergies Current Medications Prescription Sig. Disp. Refills Start Date End Date Status aspirin 81 MG Take 1 tablet 0 01/09/2018 01/09/2019 Active chewable tablet (81 mg total) by mouth daily. atorvastatin Take 1 tablet 30 tablet 1 01/09/2018 01/09/2019 Active (LIPITOR) 80 MG (80 mg total) tablet by mouth nightly. bimatoprost Place 1 drop 2.5 mL 1 01/09/2018 Active (LUMIGAN) 0.01 % into both eyes Drop ophthalmic nightly. solution brimonidine-timolol Place 1 drop 5 mL 1 01/09/2018 Active (COMBIGAN) 0.2-0.5 into both eyes % ophthalmic every 12 solution (twelve) hours. acetaminophen-codei Take 1 tablet 30 tablet 1 01/09/2018 01/19/2018 ne (TYLENOL #3) by mouth every 300-30 mg per 4 (four) hours tablet as needed for up to 10 days. Max Daily Amount: 6 tablets metoprolol Take 0.5 60 tablet 1 01/09/2018 01/16/2018 Discontinued (LOPRESSOR) 25 MG tablets (12.5 tablet mg total) by mouth 2 (two) times daily. clopidogrel Take 1 tablet 90 tablet 3 01/09/2018 01/17/2018 Discontinued (PLAVIX) 75 mg (75 mg total) tablet by mouth daily. 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 STEMI (ST elevation myocardial infarction) ([facility]) 12/30/2017 Coronary artery disease involving [place] coronary artery of [place] heart 12/30 without angina pectoris Respiratory insufficiency Cardiogenic shock (HCC) Pericarditis as complication of acute myocardial infarction ([facility]) Chronic kidney disease, unspecified CKD stage Encounters Date Type Specialty Care Team Description 01/23/2018 Office Visit Cardiology Carlotta Kwon Post-operative state MD Nancy (Primary Dx) 01/16/2018 - Hospital Encounter Cardiology Catherine Tomlinson Acute blood loss 01/18/2018 MD Chace anemia Gabi, Chace Nuñez MD 01/16/2018 Telephone Cardiology Mena Arguelles transfer MD 01/09/2018 Procedure Pass 12/31/2017 Orders Only General Internal Medicine 12/31/2017 Procedure Pass 12/31/2017 Anesthesia Event Carlee Raygoza MD 12/30/2017 - Hospital Encounter Cardiology Alcon Henson, Cardiogenic shock 01/09/2018 MD ([facility]);S/P CABG x Beck Zepeda S, 4;Acute blood loss anemia;Acute Calvin, Leo postoperative (Garo) MD Lazaro pain;Acute respiratory insufficiency 12/30/2017 Anesthesia Event Fili Li MD 12/30/2017 Procedure Pass 12/30/2017 Surgery Carlotta Kwon BYPASS,JONNA Cruz MD ENDOVASCULAR 12/30/2017 Procedure Pass 12/30/2017 Surgery Alcon Henson L CATH & CORONARY ANGIOS 12/30/2017 Procedure Pass after 01/29/2017 Family History Medical History Relation Name Comments Hypertension Mother Stroke Mother Relation Name Status Comments Mother Social History Tobacco Use Types Packs/Day Years Used Date Former Smoker Quit: 07/10/1987 Smokeless Tobacco: Never Used Tobacco Cessation: Counseling Given: No Alcohol Use Drinks/Week oz/Week Comments No Sex Assigned at Date Recorded Not on file Last Filed Vital Signs Vital Sign Reading Time Taken Blood Pressure 142/78 01/23/2018 10:17 AM CDT Pulse 75 01/23/2018 10:17 AM CDT Temperature 37 C (98.6 F) 01/23/2018 10:17 AM CDT Respiratory Rate 18 01/23/2018 10:17 AM CDT Oxygen Saturation 100% 01/23/2018 10:17 AM CDT Inhaled Oxygen Concentration - - Weight 70.3 kg (155 lb) 01/23/2018 10:17 AM CDT Height 172.7 cm (5' 8") 01/23/2018 10:17 AM CDT Body Mass Index 23.57 01/23/2018 10:17 AM CDT Plan of Treatment Not on file Procedures Procedure Name Priority Date/Time Associated Diagnosis Comments BYPASS,CORONARY 12/30/2017 7:30 PM Other acne ENDOVASCULAR CDT L CATH & CORONARY ANGIOS 12/30/2017 3:[address] elevation CDT myocardial infarction (STEMI), unspecified artery (HCC) after 01/29/2017 Results EKG-SCANNED (01/21/2018 1:41 PM)Only the most recent of2 resultswithin the time period is included.RHYTHM STRIP - SCAN (01/21/2018 1:41 PM)Only the most recent of2 resultswithin the time period is included.Cortisol (01/18/2018 6:02 AM) Component Value Ref Range Cortisol, Total 13.2 3.7 - 19.4 ug/dL Specimen Performing Laboratory Blood - Arm, [address] [address] CBC with platelet count + automated diff (01/18/2018 6:02 AM)Only the most recent of14 resultswithin the time period is included. Component Value Ref Range WBC 4.6 3.5 - 10.5 K/L RBC 3.75 (L) 4.63 - 6.08 M/L Hemoglobin 10.3 (L) 13.7 - 17.5 GM/DL Hematocrit 33.5 (L) 40.1 - 51.0 % MCV 89.3Comment: Discordant MCV result 79.0 - 92.2 fL compared to previous one; Clinical correlation required. MCH 27.5 25.7 - 32.2 pg MCHC 30.7 (L) 32.3 - 36.5 GM/DL RDW 14.0 11.6 - 14.4 % Platelets 295 150 - 450 K/CU MM MPV 11.9 9.4 - 12.4 fL nRBC 0 0 - 0 /100 WBC % Neutros 61 % % Lymphs 24 % % Monos 10 % % Eos 3 % % Baso 1 % # Neutros 2.82 1.78 - 5.38 K/L # Lymphs 1.11 (L) 1.32 - 3.57 K/L # Monos 0.46 0.30 - 0.82 K/L # Eos 0.15 0.04 - 0.54 K/L # Baso 0.04 0.01 - 0.08 K/L Immature Granulocytes-Relative 0 0 - 1 % Specimen Performing Laboratory Blood - Arm, [address] [address] CBC with platelet count + automated diff (01/18/2018 6:02 AM)Only the most recent of14 resultswithin the time period is included. Specimen Performing Laboratory Blood Narrative The following orders were created for panel order CBC with platelet count + automated diff. Procedure Abnormality Status --------- ------ CBC with platelet count ...[[id number]]AbnormalFinal result Please view results for these tests on the individual orders. Basic Metabolic Panel (01/18/2018 6:02 AM)Only the most recent of13 resultswithin the time period is included. Component Value Ref Range Sodium 135 (L) 136 - 145 meq/L Potassium 4.6 3.5 - 5.1 meq/L Chloride 104 98 - 107 meq/L CO2 23 22 - 29 meq/L BUN 16 7 - 21 mg/dL Creatinine 1.14 0.57 - 1.25 mg/dL Glucose 89 70 - 105 mg/dL Calcium 9.8 8.4 - 10.2 mg/dL EGFR 78Comment: ESTIMATED GFR IS NOT ACCURATE mL/min/1.73 sq m CREATININE CLEARANCE IN PREDICTING GLOMERULAR FILTRATION RATE. ESTIMATED GFR IS NOT APPLICABLE FOR DIALYSIS PATIENTS. Specimen Performing Laboratory Blood - Arm, [address] [address] 2D Echo W/Doppler(CW/PW/Color) (01/17/2018 3:51 PM)Only the most recent of2 resultswithin the time period is included. Component Value Ref Range Ejection Fraction Specimen Performing Laboratory [facility] ECHO [facility] MKCKESSON CPACS Narrative Transthoracic Echocardiography Report (TTE) Demographics Patient Name JUSTIN PAYNE Date of Study 01/17/2018 MATT [id number] Male Visit Number [id number] Room Number 1460 Number Date of Birth1Referring Physician Age67 year(s)Filling Station Attendant Santhosh Cloud Interpreting Physician HANNAH Burgess Procedure Type of Study TTE procedure:2DECHO W DOPPLER(CW/PW/COLOR) (Routine) Indications:Hypotension or hemodynamic instability. Clinical History HGB 10.5 HCT 37.9 % CAD, STEMI, ACB X4, HYPOTENSION Height: 68 inches Weight: 71.21 kg (157 lbs) BSA: 1.84 m^2 BMI: 23.87 kg/m^2 HR: 89 bpm BP: 128/59 mmHg Summary Normal left ventricle cavity size. All other segments contract normally. LV septal thickness is mildly increased (1.2-1.4cm). LV posterior wall thickness is rqjn-tk-rsibuojpzs increased (1.44cm) . LVEF by Gallardo's method of disk assessment is lower limits of normal (50-55%) . Septal motion is abnormal, likely related to prior cardiac surgery . Normal diastolic function. The right ventricular chamber size and systolic function are within normal limits. There is aortic valve sclerosis and mild calcification without evidence of stenosis. Unchanged from prior study. Unable to estimate peak systolic PA pressure; inadequate TR velocity signal. No significant pericardial effusion is visualized. Signature Findings Rhythm/BPNormal sinus rhythm and regular rate during the exam. Left Ventricle Normal left ventricle cavity size. All other segments contract normally. LV septal thickness is mildly increased (1.2-1.4cm). LV posterior wall thickness is vznq-wg-fllafsyjkb increased ( 1.44cm) . LVEF by Gallardo's method of disk assessment is lower limits of normal (50-55% ) . Septal motion is abnormal, likely related to prior cardiac surgery . Normal diastolic function. Left AtriumLA size is normal (16-34 ml/m2) . Right VentricleThe right ventricular chamber size and systolic function are within normal limits. Right Atrium RA size is normal. Atrial SeptumNormal interatrial septum by available views. Aortic Valve There is aortic valve sclerosis and mild calcification without evidence of stenosis. Unchanged from prior study. There is trace aortic regurgitation. Mitral Valve Trace mitral regurgitation. Tricuspid ValveNormal TV structure and function by available views and Doppler. A trace of tricuspid regurgitation. Unable to estimate peak systolic PA pressure; inadequate TR velocity signal. Pulmonic Valve Normal PV structure and function. AortaAortic root size (SInus of Valsalva diameter) is normal . PericardiumNo significant pericardial effusion is visualized. IVC/SVC/PA/PV/PleuralThe estimated RA pressure by IVC dynamics 5-10mmHg . Chambers/Structures Left Atrium LA Volume: 33.54 ml LA Area: 13.86 cm^ 2 LA Vol. Index: 18 ml/m^2 Left Ventricle LVIDd: 3.53 cmLVEDV:80.6 ml LVIDs: 2.55 cm LV Septum Diastolic: 1.29 cm LV PW Diastolic: 1.44 cmLV FS: 27.8 % LVEDV Gallardo's:106.79 ml LVESV Gallardo's:48.78 mlLVEDVI: 58 ml/m^2 LVEF Gallardo's: 54.3 %LVESVI: 27 ml/m^2 LVOT Diameter: 1.99 cm Aorta Ao Root S of Maria Isabel.: 3.17 cm Doppler/Quantitative Measurements Mitral Valve MV Peak E-Wave: 0.72 m/sMV Peak A-Wave: 0.6 m/s E/ A Ratio: 1.2 Peak Gradient: 2.09 mmHg Deceleration Time: 227.4 msec MV Ernesto. Peak: Tissue Doppler E' Lateral Velocity: 0.16 m/s A' Lateral Velocity: 0.08 m/s E/ E': 4.62 Aortic Valve Peak Velocity: 0.84 m/sMean Velocity: 0.54 m/s Peak Gradient: 2.79 mmHg Mean Gradient: 1.34 mmHg AV Area (continuity): 3.61 cm^2 AV VTI: 12.56 cm AV DVI: 1.16 LVOT Peak Velocity: 0.78 m/s Peak Gradient: 2.41 mmHg Mean Velocity: 0.51 m/s Mean Gradient: 1.26 mmHg LVOT Diameter: 1.99 cmLVOT VTI: 14.57 cm LVOT Area: 3.11 cm^2LVOT SV:45.29 ml LVOT CO: 4.03 l/min LVOT CI: 2.19 l/min/m^2 Procedure Note Interface, External Ris In - 01/18/2018 9:14 AM CDT Transthoracic Echocardiography Report (TTE) Demographics Patient Name JUSTIN PAYNE Date of Study 01/17/2018 MATT Gender Male Visit Number [id number] Race Unknown Room Number 1460 Number Date of 1950 Referring Physician Age 67 year(s) Filling Station Attendant Santhosh Cloud Interpreting Physician HANNAH Burgess Procedure Type of Study TTE procedure:2DECHO W DOPPLER(CW/PW/COLOR) (Routine) Indications:Hypotension or hemodynamic instability. Clinical History HGB 10.5 HCT 37.9 % CAD, STEMI, ACB X4, HYPOTENSION Height: 68 inches Weight: 71.21 kg (157 lbs) BSA: 1.84 m^2 BMI: 23.87 kg/m^2 HR: 89 bpm BP: 128/59 mmHg Summary Normal left ventricle cavity size. All other segments contract normally. LV septal thickness is mildly increased (1.2-1.4cm). LV posterior wall thickness is nkpn-us-clvfxzjquq increased (1.44cm) . LVEF by Gallardo's method of disk assessment is lower limits of normal (50-55%) . Septal motion is abnormal, likely related to prior cardiac surgery . Normal diastolic function. The right ventricular chamber size and systolic function are within normal limits. There is aortic valve sclerosis and mild calcification without evidence of stenosis. Unchanged from prior study. Unable to estimate peak systolic PA pressure; inadequate TR velocity signal. No significant pericardial effusion is visualized. Signature Findings Rhythm/BP Normal sinus rhythm and regular rate during the exam. Left Ventricle Normal left ventricle cavity size. All other segments contract normally. LV septal thickness is mildly increased (1.2-1.4cm). LV posterior wall thickness is ujhn-sb-pahaxrjaor increased (1.44cm) . LVEF by Gallardo's method of disk assessment is lower limits of normal (50-55%) . Septal motion is abnormal, likely related to prior cardiac surgery . Normal diastolic function. Left Atrium LA size is normal (16-34 ml/m2) . Right Ventricle The right ventricular chamber size and systolic function are within normal limits. Right Atrium RA size is normal. Atrial Septum Normal interatrial septum by available views. Aortic Valve There is aortic valve sclerosis and mild calcification without evidence of stenosis. Unchanged from prior study. There is trace aortic regurgitation. Mitral Valve Trace mitral regurgitation. Tricuspid Valve Normal TV structure and function by available views and Doppler. A trace of tricuspid regurgitation. Unable to estimate peak systolic PA pressure; inadequate TR velocity signal. Pulmonic Valve Normal PV structure and function. Aorta Aortic root size (SInus of Valsalva diameter) is normal . Pericardium No significant pericardial effusion is visualized. IVC/SVC/PA/PV/Pleural The estimated RA pressure by IVC dynamics 5-10mmHg . Chambers/Structures Left Atrium LA Volume: 33.54 ml LA Area: 13.86 cm^2 LA Vol. Index: 18 ml/m^2 Left Ventricle LVIDd: 3.53 cm LVEDV:80.6 ml LVIDs: 2.55 cm LV Septum Diastolic: 1.29 cm LV PW Diastolic: 1.44 cm LV FS: 27.8 % LVEDV Gallardo's:106.79 ml LVESV Galladro's:48.78 ml LVEDVI: 58 ml/m^2 LVEF Gallardo's: 54.3 % LVESVI: 27 ml/m^2 LVOT Diameter: 1.99 cm Aorta Ao Root S of Maria Isabel.: 3.17 cm Doppler/Quantitative Measurements Mitral Valve MV Peak E-Wave: 0.72 m/s MV Peak A-Wave: 0.6 m/s E/A Ratio: 1.2 Peak Gradient: 2.09 mmHg Deceleration Time: 227.4 msec MV Ernesto. Peak: Tissue Doppler E' Lateral Velocity: 0.16 m/s A' Lateral Velocity: 0.08 m/s E/E': 4.62 Aortic Valve Peak Velocity: 0.84 m/s Mean Velocity: 0.54 m/s Peak Gradient: 2.79 mmHg Mean Gradient: 1.34 mmHg AV Area (continuity): 3.61 cm^2 AV VTI: 12.56 cm AV DVI: 1.16 LVOT Peak Velocity: 0.78 m/s Peak Gradient: 2.41 mmHg Mean Velocity: 0.51 m/s Mean Gradient: 1.26 mmHg LVOT Diameter: 1.99 cm LVOT VTI: 14.57 cm LVOT Area: 3.11 cm^2 LVOT SV:45.29 ml LVOT CO: 4.03 l/min LVOT CI: 2.19 l/min/m^2 XR chest 1 view portable / bedside (01/17/2018 6:48 AM)Only the most recent of12 resultswithin the time period is included. Specimen Performing Laboratory [facility] Narrative FINAL REPORT CLINICAL HISTORY: sob TECHNIQUE: 1 view of the chest. COMPARISON: 01/08/2018 IMPRESSION: Previous left mid and lower lung opacity has resolved other than lingular atelectasis. There is no other lobar consolidation or pleural effusion. The cardiomediastinal silhouette is magnified by technique with sternotomy wires. Signed: Julianna Gillette MD Report Verified Date/Time:01/17/2018 07:18:55 Reading Location: [facility] Radiology Reading Room Procedure Note Interface, External Ris In - 01/17/2018 7:21 AM CDT FINAL REPORT CLINICAL HISTORY: sob TECHNIQUE: 1 view of the chest. COMPARISON: 01/08/2018 IMPRESSION: Previous left mid and lower lung opacity has resolved other than lingular atelectasis. There is no other lobar consolidation or pleural effusion. The cardiomediastinal silhouette is magnified by technique with sternotomy wires. Signed: Julianna Gillette MD Report Verified Date/Time: 01/17/2018 07:18:55 Reading Location: [facility] Radiology Reading Room 12 lead (01/17/2018 12:02 AM)Only the most recent of2 resultswithin the time period is included. Specimen Performing Laboratory GE MUSE Narrative Ventricular Rate 77 BPM Atrial Rate 77 BPM P-R Interval 168 ms QRS Duration 74 ms Q-T Interval 330 ms QTC Calculation(Bazett) 373 ms P [place] 57 degrees R [place] 75 degrees T [place] 66 degrees Poor data quality, interpretation may be adversely affected Sinus rhythm FURTHER INTERPRETATION IS NOT POSSIBLE, PLEASE REPEAT Confirmed by Kimberlee SALDAÑA MICHAEL ([id number]) on 01/17/2018 7:54:32 AM Procedure Note Interface, External Ris In - 01/17/2018 7:54 AM CDT Ventricular Rate 77 BPM Atrial Rate 77 BPM P-R Interval 168 ms QRS Duration 74 ms Q-T Interval 330 ms QTC Calculation(Bazett) 373 ms P [place] 57 degrees R [place] 75 degrees T [place] 66 degrees Poor data quality, interpretation may be adversely affected Sinus rhythm FURTHER INTERPRETATION IS NOT POSSIBLE, PLEASE REPEAT Confirmed by Kimberlee SALDAÑA MICHAEL ([id number]) on 01/17/2018 7:54:32 AM VASCULAR DIAGRAM -SCAN (01/11/2018 10:40 AM)POC-Glucose meter (01/09/2018 11:28 AM)Only the most recent of27 resultswithin the time period is included. Component Value Ref Range POC-Glucose Meter 110Comment: TESTED AT [address] 70 - 110 mg/dL [address] Specimen Performing Laboratory Blood [facility] [address] [address] XR shoulder complete 2 views min left (01/08/2018 9:00 PM) Specimen Performing Laboratory GE RIS Narrative FINAL REPORT Technique: Multiple views of the left shoulder FINDINGS: Exam somewhat limited for the assessment of dislocation is a Y view is not submitted. No definite fracture or dislocation seen. Degenerative changes at the AC joint and glenohumeral joints noted. Signed: Nikolas Parmar MD Report Verified Date/Time:01/08/2018 21:27:28 Reading Location: [address] Consult Reading Room Procedure Note Interface, External Ris In - 01/08/2018 9:38 PM CDT FINAL REPORT Technique: Multiple views of the left shoulder FINDINGS: Exam somewhat limited for the assessment of dislocation is a Y view is not submitted. No definite fracture or dislocation seen. Degenerative changes at the AC joint and glenohumeral joints noted. Signed: Nikolas Parmar MD Report Verified Date/Time: 01/08/2018 21:27:28 Reading Location: [facility] C013 Consult Reading Room thoracentesis (01/08/2018 5:30 PM) Specimen [...] manner.After the area is anesthetized, a 5 [place] catheter is advanced into the pleural space. Approximately 400 cc. of anterior segment is fluid is drained, without immediate complications.Fluid is sent for analysis.Post procedure chest x-ray is pending. Patient disposition:Patient is discharged from the ultrasound department after the thoracentesis in good condition. Impression: Successful and uncomplicated ultrasound guided left thoracentesis is performed. Signed: Hawk Whaley MD Report Verified Date/Time:01/09/2018 13:33:27 Reading Location: [facility] Diagnostic Imaging Reading Room - [place] [address] Procedure Note Interface, External Ris In - [...] After the area is anesthetized, a 5 [place] catheter is advanced into the pleural space. [...] Report Verified Date/Time: 01/09/2018 13:33:27 Reading Location: [facility] Diagnostic Imaging Reading Room - [place] [address] pH, body fluid (01/08/2018 4:50 PM) Component Value Ref Range pH, Body Fluid 7.58 Specimen Performing Laboratory Body Fluid - Thoracentesis [address] [address] Glucose, body fluid (01/08/2018 4:50 PM) Component Value Ref Range Glucose, Body Fluid 111 mg/dL Specimen Performing Laboratory Body Fluid - Thoracentesis [address] [address] Narrative Absence of reference range indicates that normals have not been defined. Assay performance has not been validated for this type of specimen. Body fluid culture + gram stain (01/08/2018 4:50 PM) Component Value Ref Range Result No growth Gram Stain Result <1+ WBCs Gram Stain Result No organisms seen Specimen Performing Laboratory Body Fluid - Thoracentesis [address] [address] Body fluid cell count with differential (01/08/2018 4:50 PM) Component Value Ref Range Appearance Bloody (A) Clear Color Red (A) Colorless, Straw RBCs 5649321 (H) <=1 /cu mm Adjusted WBC Count 2068 (H) <=5 /cu mm Lining Cells 62 (H) <=1 /cu mm % Segs 8 % % Lymphs 37 % % Monos 53 % % Eos 2 % % Baso 0 % Container Body Fluid EDTA Tube Specimen Performing Laboratory Body Fluid - Thoracentesis [address] [address] Protein, body fluid (01/08/2018 4:50 PM) Component Value Ref Range Protein, Fluid 3.8 g/dL Specimen Performing Laboratory Body Fluid - Thoracentesis [address] [address] Narrative Absence of reference range indicates that normals have not been defined. Assay performance has not been validated for this type of specimen. Lactate dehydrogenase (LDH), body fluid (01/08/2018 4:50 PM) Component Value Ref Range LDH, Fluid 595 U/L Specimen Performing Laboratory Body Fluid - Thoracentesis [address] [address] Narrative Absence of reference range indicates that normals have not been defined. Assay performance has not been validated for this type of specimen. Albumin, body fluid (01/08/2018 4:50 PM) Component Value Ref Range Albumin, Fluid 2.3 gm/dL Specimen Performing Laboratory Body Fluid - Thoracentesis [address] [address] Narrative Reference Range:No Normals Assay performance has not been validated for this type of specimen. PT/aPTT (01/08/2018 4:35 AM) Component Value Ref Range Protime 14.3 11.7 - 14.7 seconds INR 1.1 <=5.9 PTT 33.3 22.5 - 36.0 seconds Specimen Performing Laboratory Blood [address] [address] Narrative RECOMMENDED COUMADIN/WARFARIN INR THERAPY RANGES STANDARD [...] INR 1.1 <=5.9 Specimen Performing Laboratory Blood [address] [address] Narrative RECOMMENDED COUMADIN/WARFARIN INR THERAPY RANGES STANDARD DOSE: 2.0 - 3.0 Includes: PROPHYLAXIS for venous thrombosis, systemic embolization; TREATMENT for venous thrombosis and/or pulmonary embolus. HIGH RISK: Target INR is 2.5-3.5 for patients with mechanical heart valves. Protein, total (01/08/2018 4:35 AM) Component Value Ref Range Protein, Total 6.6 6.0 - 8.3 gm/dL Specimen Performing Laboratory Blood [address] [address] Lactate dehydrogenase (LDH) (01/08/2018 4:35 AM) Component Value Ref Range LDH 289 (H) 125 - 220 U/L Specimen Performing Laboratory [address] [address] Albumin (01/08/2018 4:35 AM) Component Value Ref Range Albumin 3.2 (L) 3.5 - 5.0 g/dL Specimen Performing Laboratory [address] [address] [address] chest with IV contrast (01/07/2018 4:47 PM) Specimen Performing Laboratory [employer] Narrative FINAL REPORT INDICATION: 67-year-old male with [...] MD Report Verified Date/Time:01/07/2018 18:26:42 Reading Location: [facility] C013 CT Body Reading Room Procedure Note Interface, [...] Report Verified Date/Time: 01/07/2018 18:26:42 Reading Location: [facility] C013Y CT Body Reading Room Magnesium (01/06/2018 3:57 AM)Only the most recent of8 resultswithin the time period is included. Component Value Ref Range Magnesium 2.0 1.6 - 2.6 mg/dL Specimen Performing Laboratory Blood - Arm, Left [address] [address] TRANSFUSION SERVICE REPORT - SCAN (01/04/2018 5:52 PM)Only the most recent of5 resultswithin the time period is included.Prepare Leuko-Red RBC (01/03/2018 11: 54 PM)Only the most recent of2 resultswithin the time period is included. Component Value Ref Range CROSSMATCH COMPATIBLE Unit ABO O Pos UNIT NUMBER [id number] Status TRANSFUSED Blood Bank Product RED BLOOD CELLS PRODUCT CODE [id number] Specimen Performing Laboratory Other [employer] [place] Hemoglobin and hematocrit (01/03/2018 4:08 PM)Only the most recent of3 resultswithin the time period is included. Component Value Ref Range Hemoglobin 7.7 (L) 13.7 - 17.5 GM/DL Hematocrit 24.7 (L) 40.1 - 51.0 % Specimen Performing Laboratory Blood [address] [address] Lactic acid, venous, whole blood (01/03/2018 4:08 PM) Component Value Ref Range Lactate, Venous 1.1 0.5 - 2.2 mmol/L Specimen Performing Laboratory Blood [address] [address] Narrative Effective 10/13/2015: Units/Reference Range Change New: [...] - 0 /100 WBC Specimen Performing Laboratory Blood [address] [address] Oxygen saturation, measured (01/03/2018 3:16 AM)Only the most recent of4 resultswithin the time period is included. Component Value Ref Range O2 Saturation (Measured) 90.1 % Specimen Performing Laboratory Blood [address] [address] Calcium, Ionized (01/03/2018 3:16 AM)Only the most recent of5 resultswithin the time period is included. Component Value Ref Range Calcium, Ion 1.11 (L) 1.12 - 1.27 mmol/L pH, Blood 7.42 Specimen Performing Laboratory Blood [address] [address] aPTT (01/03/2018 3:16 AM)Only the most recent of6 resultswithin the time period is included. Component Value Ref Range PTT 32.0 22.5 - 36.0 seconds Specimen Performing Laboratory Blood [address] [address] Phosphorus (01/03/2018 3:16 AM)Only the most recent of5 resultswithin the time period is included. Component Value Ref Range Phosphorus 2.6 2.3 - 4.7 mg/dL Specimen Performing Laboratory Blood [address] [address] Hepatic function panel (01/03/2018 3:16 AM)Only the [...] - 55 U/L Specimen Performing Laboratory Blood [address] [address] Transfuse Leuko-Red RBC (01/02/2018 10:41 PM)Only the most recent of4 resultswithin the time period is included.CARDIAC CATH REPORT - SCAN (2017 11:31 AM)Prepare PLT (01/01/2018 11:54 PM) Component Value Ref Range Unit ABO O Pos UNIT NUMBER [id number] Status TRANSFUSED Blood Bank Product PLATELETS PRODUCT CODE G7380Z90 Unit ABO O Pos UNIT NUMBER [id number] Status TRANSFUSED Blood Bank Product PLATELETS PRODUCT CODE W1144Z58 Unit ABO O Pos UNIT NUMBER [id number] Status TRANSFUSED Blood Bank Product PLATELETS PRODUCT CODE F9516A38 Specimen Performing Laboratory [facility] [place] Prepare plasma (01/01/2018 11:54 PM) Component Value Ref Range Unit ABO O Pos UNIT NUMBER [id number] Status TRANSFUSED Blood Bank Product FFP PRODUCT CODE F7928M47 Unit ABO O Pos UNIT NUMBER [id number] Status TRANSFUSED Blood Bank Product FFP PRODUCT CODE L7225Q82 Specimen Performing Laboratory [facility] [place] Prepare cryoprecipitate (01/01/2018 11:54 PM) Component Value Ref Range Unit ABO O Pos UNIT NUMBER [id number] Status TRANSFUSED Blood Bank Product CRYOPRECIPITATE PRODUCT CODE I6949I04 Specimen Performing Laboratory [facility] [place] Prepare RBC (01/01/2018 11:54 PM) Component Value Ref Range CROSSMATCH COMPATIBLE Unit ABO O Pos UNIT NUMBER [id number] Status RETURNED FROM ISSUE Blood Bank Product RED BLOOD CELLS PRODUCT CODE [id number] CROSSMATCH COMPATIBLE Unit ABO O Pos UNIT NUMBER [id number] Status TRANSFUSED Blood Bank Product RED BLOOD CELLS PRODUCT CODE O4658R04 Specimen Performing Laboratory [place] [place] Blood gas, [...] Laboratory Blood, Arterial - Line, Arterial [facility] [address] [place] [address] Glucose-Stat Lab (01/01/2018 8:35 AM)Only the most recent of10 resultswithin the time period is included. Component Value Ref Range Glucose 111 (H) 70 - 110 mg/dL Specimen Performing Laboratory Blood, Arterial - Line, Arterial [address] [address] Hemoglobin-Stat Lab (01/01/2018 6:38 AM) Component Value Ref Range Hemoglobin 7.8 (L) 13.0 - 16.8 g/dL Specimen Performing Laboratory Blood, [address] [address] Hematocrit-Stat Lab (01/01/2018 6:38 AM) Component Value Ref Range Hematocrit 23.0 (L) 40.0 - 50.0 % Specimen Performing Laboratory Blood, [address] [address] Lactic acid, arterial, whole blood (01/01/2018 3:31 AM)Only the most recent of2 resultswithin the time period is included. Component Value Ref Range Lactate, Art 1.4 0.5 - 2.2 mmol/L Specimen Performing Laboratory Blood, Arterial - Line, Arterial [address] [address] Narrative Effective 10/13/2015: Units/Reference Range Change New: 0.5-2.2 mmol/LPrevious: 5-20 mg/dL Vancomycin level, random (01/01/2018 3:31 AM) Component Value Ref Range Vancomycin Rm 5.4 ug/mL Specimen Performing Laboratory Blood - Line, [address] [address] Narrative Reference Range: No Normals [facility] (ABG,NA,K,H&H,GLUCOSE) (12/31/2017 4:51 AM)Only the most recent of9 resultswithin the time period is included. Specimen Performing Laboratory Blood, Arterial Narrative The following orders were created for panel order [facility] (ABG,NA,K,H&H,GLUCOSE). Procedure Abnormality Status --------- ------ Blood gas, arterial[[id number]]AbnormalFinal result Sodium Na-Stat Lab[[id number]] NormalFinal result Potassium-Stat Lab[[id number]] NormalFinal result Glucose-Stat Lab[[id number]] AbnormalFinal result HGB/HCT (H&H)-Stat Lab[[id number]] Abnormal Final result Please view results for these tests on the individual orders. Potassium-Stat Lab (12/31/2017 4:51 AM)Only the most recent of9 resultswithin the time period is included. Component Value Ref Range Potassium 3.7 3.6 - 5.5 meq/L Specimen Performing Laboratory Blood, [address] [address] Sodium Na-Stat Lab (12/31/2017 4:51 AM)Only the most recent of9 resultswithin the time period is included. Component Value Ref Range Sodium 142 135 - 148 meq/L Specimen Performing Laboratory Blood, [address] [address] Manual Differential (12/31/2017 4:51 AM) Component Value [...] Platelet Conc Decreased Specimen Performing Laboratory Blood [address] [address] Narrative Received comment: User comments: Slide comments: HGB/HCT (H&H)-Stat Lab (12/31/2017 4:51 AM)Only the most recent of9 resultswithin the time period is included. Component Value Ref Range Hemoglobin 10.1 (L) 13.0 - 16.8 g/dL Hematocrit 30.0 (L) 40.0 - 50.0 % Specimen Performing Laboratory Blood, [address] [address] Thromboelastograph (TEG) (12/31/2017 4:51 AM)Only the most [...] - 5.0 % Specimen Performing Laboratory Blood [address] [address] Fibrinogen (12/31/2017 4:51 AM)Only the most recent of2 resultswithin the time period is included. Component Value Ref Range Fibrinogen 251 225 - 434 mg/dl Specimen Performing Laboratory Blood [address] [address] POC ACTIVATED CLOTTING TIME (12/31/2017 2:25 AM)Only the most recent of9 resultswithin the time period is included. Component Value Ref Range Activated Clotting Time 109Comment: TESTED AT [address] sec [id number] Specimen Performing Laboratory [address] [address] ANESTHESIA ERI (12/30/2017 10:10 PM) Cameron Sanders MD 12/30/2017 10:10 PM ERI Date: 12/30/2017 [...] - 4.94 uIU/mL Specimen Performing Laboratory Blood [address] [address] Hemoglobin A1c (12/30/2017 9:12 PM) Component Value Ref Range Hemoglobin A1C 5.6 4.3 - 6.1 % Specimen Performing Laboratory [address] [address] Troponin I (12/30/2017 9:11 PM) Component Value Ref Range Troponin I <0.01 0.00 - 0.03 ng/mL Specimen Performing Laboratory [address] [address] Narrative Troponin I (TnI) levels must be [...] Relative Index 0.7 % Specimen Performing Laboratory [address] [address] Narrative CK-MB Reference Range: <6.7Normal 6.7-10.0Borderline >10.0 Abnormal Lipid panel (12/30/2017 9:11 PM) Component Value Ref Range Triglycerides 72 mg/dL Cholesterol 161 mg/dL HDL 47 mg/dL LDL Calculated 100 mg/dL Specimen Performing Laboratory Blood [address] [address] Narrative Triglyceride Reference Range: Low Risk <150 [id number] High Risk 200-499 Very High Risk>=500 Cholesterol Reference Range: Low Risk <200 [id number] High Risk>240 HDL Cholesterol Reference Range: Low Risk >=60 High Risk <40 LDL Cholesterol Reference Range: Optimal<100 Near [id number] [id number] [id number] Very High >=190 Type and screen, automated (12/30/2017 7:57 PM) Component Value Ref Range ABO/RH AUTOMATED (BEAKER) O POSITIVE Ab Scrn NEGATIVE Specimen Performing Laboratory Blood [facility] [address] [address] after 01/29/2017
--- OUTSIDE RECORDS SUMMARY | 2018-01-30 22:56 | XMS REPORT ---
:1950 [facility] [address] [place] [address] Care Team Providers Name Role Phone JOSE M LORENZO Unavailable Unavailable EMMA MATAMOROS Unavailable Unavailable Problems This patient has no known problems. Allergies, Adverse Reactions, Alerts This patient has no known allergies or adverse reactions. Medications This patient has no known medications. Results Test Description Test Time Test Comments Text Results Atomic Results Result Comments CORTISOL 2018-01-18 07:52:00 Test Item Value Reference Range Comments CORTISOL, TOTAL (BEAKER) (test rbet=8422) 13.2 ug/dL 3.7-19.4 CBC W/PLT COUNT & AUTO [id number] 07:06:00 Test Item Value Reference Range Comments WHITE BLOOD CELL COUNT 4.6 K/ L 3.5-10.5 (BEAKER) (test xwra=457) RED BLOOD CELL COUNT (BEAKER) 3.75 M/ L 4.63-6.08 (test dhfd=129) HEMOGLOBIN (BEAKER) (test 10.3 GM/DL 13.7-17.5 zlbw=483) HEMATOCRIT (BEAKER) (test 33.5 % 40.1-51.0 vndt=468) MEAN CORPUSCULAR VOLUME 89.3 fL 79.0-92.2 Discordant MCV result (BEAKER) (test lvbs=046) compared to previous one; Clinical correlation required. MEAN CORPUSCULAR HEMOGLOBIN 27.5 pg 25.7-32.2 (BEAKER) (test cxmw=003) MEAN CORPUSCULAR HEMOGLOBIN 30.7 GM/DL 32.3-36.5 CONC (BEAKER) (test ehfc=559) RED CELL DISTRIBUTION WIDTH 14.0 % 11.6-14.4 (BEAKER) (test bknw=404) PLATELET COUNT (BEAKER) (test 295 K/CU MM 150-450 rlqy=284) MEAN PLATELET VOLUME (BEAKER) 11.9 fL 9.4-12.4 (test dueg=305) NUCLEATED RED BLOOD CELLS 0 /100 WBC 0-0 (BEAKER) (test nqfc=332) NEUTROPHILS RELATIVE PERCENT 61 % (BEAKER) (test bjxj=505) LYMPHOCYTES RELATIVE PERCENT 24 % (BEAKER) (test hdre=089) MONOCYTES RELATIVE PERCENT 10 % (BEAKER) (test afwc=449) EOSINOPHILS RELATIVE PERCENT 3 % (BEAKER) (test lbsz=028) BASOPHILS RELATIVE PERCENT 1 % (BEAKER) (test hcoi=674) NEUTROPHILS ABSOLUTE COUNT 2.82 K/ L 1.78-5.38 (BEAKER) (test oaxv=920) LYMPHOCYTES ABSOLUTE COUNT 1.11 K/ L 1.32-3.57 (BEAKER) (test ivts=730) MONOCYTES ABSOLUTE COUNT 0.46 K/ L 0.30-0.82 (BEAKER) (test owpw=035) EOSINOPHILS ABSOLUTE COUNT 0.15 K/ L 0.04-0.54 (BEAKER) (test eftd=441) BASOPHILS ABSOLUTE COUNT 0.04 K/ L 0.01-0.08 (BEAKER) (test bqgj=812) IMMATURE 0 % 0-1 GRANULOCYTES-RELATIVE PERCENT (BEAKER) (test cbpz=6630) BASIC METABOLIC [id number] 06:53:00 Test Item Value Reference Range Comments SODIUM (BEAKER) (test 135 meq/L 136-145 ovxy=502) POTASSIUM (BEAKER) (test 4.6 meq/L 3.5-5.1 xmbo=377) CHLORIDE (BEAKER) (test 104 meq/L 98-107 dmsm=723) CO2 (BEAKER) (test 23 meq/L 22-29 dmxk=173) BLOOD UREA NITROGEN 16 mg/dL 7-21 (BEAKER) (test updh=652) CREATININE (BEAKER) (test 1.14 mg/dL 0.57-1.25 virp=225) GLUCOSE RANDOM (BEAKER) 89 mg/dL 70-105 (test ftvy=909) CALCIUM (BEAKER) (test 9.8 mg/dL 8.4-10.2 hqte=245) EGFR (BEAKER) (test 78 mL/min/1.73 sq m ESTIMATED GFR IS NOT hfla=6375) ACCURATE CREATININE CLEARANCE IN PREDICTING GLOMERULAR FILTRATION RATE. ESTIMATED GFR IS NOT APPLICABLE FOR DIALYSIS PATIENTS. BASIC METABOLIC [id number] 08:25:00 Test Item Value Reference Range Comments SODIUM (BEAKER) (test 133 meq/L 136-145 uruv=853) POTASSIUM (BEAKER) (test 4.5 meq/L 3.5-5.1 Specimen slightly naew=660) hemolyzed CHLORIDE (BEAKER) (test 102 meq/L 98-107 pffj=166) CO2 (BEAKER) (test 21 meq/L 22-29 ljys=751) BLOOD UREA NITROGEN 20 mg/dL 7-21 (BEAKER) (test czwl=761) CREATININE (BEAKER) (test 1.18 mg/dL 0.57-1.25 Specimen slightly cogm=717) hemolyzed GLUCOSE RANDOM (BEAKER) 91 mg/dL 70-105 (test ucmb=002) CALCIUM (BEAKER) (test 9.5 mg/dL 8.4-10.2 gdbi=693) EGFR (BEAKER) (test 75 mL/min/1.73 sq m ESTIMATED GFR IS NOT aboj=3416) ACCURATE CREATININE CLEARANCE IN PREDICTING GLOMERULAR FILTRATION RATE. ESTIMATED GFR IS NOT APPLICABLE FOR DIALYSIS PATIENTS. RAD, CHEST, 1 VIEW, NON [id number] 07:18:00Reason for exam:->sobShould this be performed at the bedside?->YesFINAL REPORT CLINICAL HISTORY: sob TECHNIQUE: 1 view of the chest. COMPARISON: 01/08/2018 IMPRESSION: Previous left mid and lower lung opacity has resolved other than lingular atelectasis. There is no other lobar consolidation or pleural effusion. The cardiomediastinal silhouette is magnified by technique with sternotomy wires. Signed: Julianna Gillette MDReport Verified Date/Time: 2017 07:18:55 Reading Location: [facility] Radiology Reading Room CBC W/PLT COUNT & AUTO [id number] 06:43:00 Test Item Value Reference Range Comments WHITE BLOOD CELL COUNT (BEAKER) (test qpoi=695) 4.7 K/ L 3.5-10.5 RED BLOOD CELL COUNT (BEAKER) (test sqfx=631) 3.86 M/ L 4.63-6.08 HEMOGLOBIN (BEAKER) (test ujmb=751) 10.5 GM/DL 13.7-17.5 HEMATOCRIT (BEAKER) (test noje=390) 37.9 % 40.1-51.0 MEAN CORPUSCULAR VOLUME (BEAKER) (test glsn=920) 98.2 fL 79.0-92.2 MEAN CORPUSCULAR HEMOGLOBIN (BEAKER) (test 27.2 pg 25.7-32.2 rrmk=335) MEAN CORPUSCULAR HEMOGLOBIN CONC (BEAKER) (test 27.7 GM/DL 32.3-36.5 uyhf=632) RED CELL DISTRIBUTION WIDTH (BEAKER) (test 14.1 % 11.6-14.4 bdqg=953) PLATELET COUNT (BEAKER) (test asdn=169) 280 K/CU MM 150-450 MEAN PLATELET VOLUME (BEAKER) (test czsz=881) 12.3 fL 9.4-12.4 NUCLEATED RED BLOOD CELLS (BEAKER) (test 0 /100 WBC 0-0 xfhw=658) NEUTROPHILS RELATIVE PERCENT (BEAKER) (test 64 % ajbp=575) LYMPHOCYTES RELATIVE PERCENT (BEAKER) (test 21 % foam=799) MONOCYTES RELATIVE PERCENT (BEAKER) (test 10 % ujtl=155) EOSINOPHILS RELATIVE PERCENT (BEAKER) (test 3 % jfct=556) BASOPHILS RELATIVE PERCENT (BEAKER) (test 1 % mdhs=410) NEUTROPHILS ABSOLUTE COUNT (BEAKER) (test 3.05 K/ L 1.78-5.38 svyo=410) LYMPHOCYTES ABSOLUTE COUNT (BEAKER) (test 0.97 K/ L 1.32-3.57 enwl=405) MONOCYTES ABSOLUTE COUNT (BEAKER) (test 0.49 K/ L 0.30-0.82 wpzm=527) EOSINOPHILS ABSOLUTE COUNT (BEAKER) (test 0.14 K/ L 0.04-0.54 leyc=937) BASOPHILS ABSOLUTE COUNT (BEAKER) (test 0.05 K/ L 0.01-0.08 fczm=105) IMMATURE GRANULOCYTES-RELATIVE PERCENT (BEAKER) 1 % 0-1 (test jxmq=6158) BODY FLUID CULTURE + GRAM [id number] 09:39:00 Test Item Value Reference Range Comments CULTURE (BEAKER) (test faee=9261) No growth GRAM STAIN RESULT (BEAKER) (test <1+ WBCs pdvh=6450) GRAM STAIN RESULT (BEAKER) (test No organisms seen mmkh=15551) U/S, [id number] 13:33:00Laterality?->LeftReason for exam:-> left effusionFINAL REPORT Ultrasound [...] After the area is anesthetized, a 5 Armenian catheter is advanced into the pleural space. Approximately 400 cc. of anterior segment is fluid is drained, without immediate complications. Fluid is sent for analysis. Post procedure chest x-ray is pending. Patient disposition: Patientis discharged from the ultrasound department after the thoracentesis in good condition. Impression: Successful and uncomplicated ultrasound guided left thoracentesis is performed. Signed: Hawk Whaley Verified Date/Time: 01/09/2018 13:33:27 Reading Location: [facility] Diagnostic Imaging Reading Room - [place] [address] POCT-GLUCOSE [id number] 11:45:00 Test Item Value Reference Range Comments POC-GLUCOSE METER (BEAKER) 110 mg/dL 70-110 TESTED AT [address] (test tqzf=3349) [place] [id number] POCT-GLUCOSE [id number] 08:15:00 Test Item Value Reference Range Comments POC-GLUCOSE METER (BEAKER) 120 mg/dL 70-110 TESTED AT [address] (test yhud=4737) [place] [id number] BASIC METABOLIC [id number] 06:26:00 Test Item Value Reference Range Comments SODIUM (BEAKER) (test 135 meq/L 136-145 jssa=911) POTASSIUM (BEAKER) (test 4.3 meq/L 3.5-5.1 dmuz=771) CHLORIDE (BEAKER) (test 102 meq/L 98-107 bspz=902) CO2 (BEAKER) (test 26 meq/L 22-29 yppz=417) BLOOD UREA NITROGEN 17 mg/dL 7-21 (BEAKER) (test jxlp=764) CREATININE (BEAKER) (test 1.04 mg/dL 0.57-1.25 umvd=990) GLUCOSE RANDOM (BEAKER) 97 mg/dL 70-105 (test hbpq=029) CALCIUM (BEAKER) (test 8.9 mg/dL 8.4-10.2 crni=278) EGFR (BEAKER) (test 86 mL/min/1.73 sq m ESTIMATED GFR IS NOT wubq=4168) ACCURATE CREATININE CLEARANCE IN PREDICTING GLOMERULAR FILTRATION RATE. ESTIMATED GFR IS NOT APPLICABLE FOR DIALYSIS PATIENTS. CBC W/PLT COUNT & AUTO [id number] 05:36:00 Test Item Value Reference Range Comments WHITE BLOOD CELL COUNT (BEAKER) (test memc=120) 6.7 K/ L 3.5-10.5 RED BLOOD CELL COUNT (BEAKER) (test pecf=162) 3.07 M/ L 4.63-6.08 HEMOGLOBIN (BEAKER) (test vurj=924) 8.8 GM/DL 13.7-17.5 HEMATOCRIT (BEAKER) (test pive=038) 28.3 % 40.1-51.0 MEAN CORPUSCULAR VOLUME (BEAKER) (test nkls=786) 92.2 fL 79.0-92.2 MEAN CORPUSCULAR HEMOGLOBIN (BEAKER) (test 28.7 pg 25.7-32.2 onxx=644) MEAN CORPUSCULAR HEMOGLOBIN CONC (BEAKER) (test 31.1 GM/DL 32.3-36.5 phur=923) RED CELL DISTRIBUTION WIDTH (BEAKER) (test 14.1 % 11.6-14.4 swfl=784) PLATELET COUNT (BEAKER) (test ggth=592) 224 K/CU MM 150-450 MEAN PLATELET VOLUME (BEAKER) (test lbim=951) 12.1 fL 9.4-12.4 NUCLEATED RED BLOOD CELLS (BEAKER) (test 0 /100 WBC 0-0 dqlv=828) NEUTROPHILS RELATIVE PERCENT (BEAKER) (test 69 % kikc=060) LYMPHOCYTES RELATIVE PERCENT (BEAKER) (test 17 % kzlk=219) MONOCYTES RELATIVE PERCENT (BEAKER) (test 10 % qytg=052) EOSINOPHILS RELATIVE PERCENT (BEAKER) (test 3 % mvpm=877) BASOPHILS RELATIVE PERCENT (BEAKER) (test 0 % hgiv=204) NEUTROPHILS ABSOLUTE COUNT (BEAKER) (test 4.58 K/ L 1.78-5.38 lpzz=776) LYMPHOCYTES ABSOLUTE COUNT (BEAKER) (test 1.15 K/ L 1.32-3.57 berx=381) MONOCYTES ABSOLUTE COUNT (BEAKER) (test 0.69 K/ L 0.30-0.82 yrdt=242) EOSINOPHILS ABSOLUTE COUNT (BEAKER) (test 0.19 K/ L 0.04-0.54 zavs=241) BASOPHILS ABSOLUTE COUNT (BEAKER) (test 0.03 K/ L 0.01-0.08 dbqx=099) IMMATURE GRANULOCYTES-RELATIVE PERCENT (BEAKER) 1 % 0-1 (test niqv=0644) RAD, SHOULDER, COMPLETE (MIN 2 VIEWS), [id number] 21:27:00Reason for exam:-& gt;left shoulder painFINAL REPORT Technique: Multiple views of the left shoulder FINDINGS: Exam somewhat limited for the assessment of dislocation is a Y view is not submitted. No definite fracture or dislocation seen. Degenerative changes at the AC joint and glenohumeral joints noted. Signed: Nikolas Fernández MDReport Verified Date/Time: 01/08/2018 21:27:28 Reading Location: [address] Consult Reading Room POCT-GLUCOSE [id number] 21:16: 00 Test Item Value Reference Range Comments POC-GLUCOSE METER (BEAKER) 197 mg/dL 70-110 TESTED AT [facility] [address] [facility] (test thff=2356) [facility] [address] BODY FLUID CELL COUNT WITH [id number] 19:48:00 Test Item Value Reference Range Comments APPEARANCE FLUID (BEAKER) (test ktcs=011) Bloody Clear COLOR FLUID (BEAKER) (test czwe=472) Red Colorless, Straw RBC FLUID (BEAKER) (test ddin=571066) 6407300 /cu mm <=1 ADJUSTED WBC FLUID (BEAKER) (test xedz=6606) 2068 /cu mm <=5 LINING CELLS (BEAKER) (test zbmw=7426) 62 /cu mm <=1 NEUTROPHILS FLUID (BEAKER) (test rscd=3829) 8 % LYMPHS FLUID (BEAKER) (test uiew=600) 37 % MONO/MACROPHAGE FLUID (BEAKER) (test 53 % sslw=636) EOSINOPHILS FLUID (BEAKER) (test lajc=320) 2 % BASO FLUID (BEAKER) (test wyoe=860) 0 % CONTAINER BODY FLUID (BEAKER) (test EDTA Tube mhyk=9684) ALBUMIN, BODY [id number] 19:23:00 Test Item Value Reference Range Comments ALBUMIN FLUID (BEAKER) (test conl=818) 2.3 gm/dL Reference Range: No Normals Assay performance has not been validated for this type of specimen.LACTATE DEHYDROGENASE (LDH), BODY [id number] 19:23:00 Test Item Value Reference Range Comments LACTATE DEHYDROGENASE FLUID (BEAKER) (test ryzg=366) 595 U/L Absence of reference range indicates that normals have not been defined.Assay performance has not been validated for this type of specimen.PROTEIN, BODY [id number] 19:23:00 Test Item Value Reference Range Comments PROTEIN FLUID (BEAKER) (test swyu=028) 3.8 g/dL Absence of reference range indicates that normals have not been defined.Assay performance has not been validated for this type of specimen.GLUCOSE, BODY [id number] 19:23:00 Test Item Value Reference Range Comments GLUCOSE, BODY FLUID (BEAKER) (test eyim=7670) 111 mg/dL Absence of reference range indicates that normals have not been defined.Assay performance has not been validated for this type of specimen.PH, BODY [id number] 19:07:00 Test Item Value Reference Range Comments PH, BODY FLUID (BEAKER) (test melz=8569) 7.58 POCT-GLUCOSE [id number] 18:31:00 Test Item Value Reference Range Comments POC-GLUCOSE METER (BEAKER) 116 mg/dL 70-110 TESTED AT [facility] [address] [facility] (test yhxs=0687) [facility] [address] RAD, CHEST, 1 VIEW, NON [id number] 17:51:00Reason for exam:->s/p left thoracentesisShould this be performed at the bedside?->YesFINAL REPORT Chest, one view. HISTORY: Thoracentesis COMPARISON: 2017 IMPRESSION: Interval resolution of moderate left pleural effusion. No identifiable pneumothorax. Unchanged enlargement of the cardiomediastinal silhouette with mild interstitial edema. Intact median sternotomy wires. Signed : Hawk Whaley MDReport Verified Date/Time: 01/08/2018 17:51:49 Reading Location: [facility] P006J Ultrasound Reading Room POCT-GLUCOSE [id number] 12:25: 00 Test Item Value Reference Range Comments POC-GLUCOSE METER (BEAKER) 117 mg/dL 70-110 TESTED AT [address] (test nqxa=4841) [facility] [address] POCT-GLUCOSE [id number] 08:05:00 Test Item Value Reference Range Comments POC-GLUCOSE METER (BEAKER) 117 mg/dL 70-110 TESTED AT [address] (test fral=6541) [facility] [address] PROTEIN, [id number] 05:59:00 Test Item Value Reference Range Comments TOTAL PROTEIN (BEAKER) (test ozhh=319) 6.6 gm/dL 6.0-8.3 BASIC METABOLIC [id number] 05:59:00 Test Item Value Reference Range Comments SODIUM (BEAKER) (test 135 meq/L 136-145 hycb=205) POTASSIUM (BEAKER) (test 4.5 meq/L 3.5-5.1 rfvt=716) CHLORIDE (BEAKER) (test 102 meq/L 98-107 rftx=633) CO2 (BEAKER) (test 25 meq/L 22-29 clka=177) BLOOD UREA NITROGEN 15 mg/dL 7-21 (BEAKER) (test puvo=348) CREATININE (BEAKER) (test 1.01 mg/dL 0.57-1.25 nzbk=519) GLUCOSE RANDOM (BEAKER) 95 mg/dL 70-105 (test tqwu=713) CALCIUM (BEAKER) (test 9.2 mg/dL 8.4-10.2 qval=871) EGFR (BEAKER) (test 89 mL/min/1.73 sq m ESTIMATED GFR IS NOT xici=2347) ACCURATE CREATININE CLEARANCE IN PREDICTING GLOMERULAR FILTRATION RATE. ESTIMATED GFR IS NOT APPLICABLE FOR DIALYSIS PATIENTS. [id number] 05:59:00 Test Item Value Reference Range Comments ALBUMIN (BEAKER) (test fzgp=4291) 3.2 g/dL 3.5-5.0 LACTATE DEHYDROGENASE (LDH)2018-01-08 05:59:00 Test Item Value Reference Range Comments LACTATE DEHYDROGENASE (BEAKER) (test bzco=459) 289 U/L 125-220 PROTHROMBIN [id number] 05:27:00 Test Item Value Reference Range Comments PROTIME (BEAKER) (test gxqn=001) 14.3 seconds 11.7-14.7 INR (BEAKER) (test xvtc=527) 1.1 <=5.9 RECOMMENDED COUMADIN/WARFARIN INR THERAPY RANGESSTANDARD DOSE: 2.0 - 3.0 Includes: PROPHYLAXIS forvenous thrombosis, systemic embolization; TREATMENT for venous thrombosis and/or pulmonary embolus.HIGH RISK: Target INR is 2.5-3.5 for patients with mechanical heart valves.PT/[id number] 05:27:00 Test Item Value Reference Range Comments PROTIME (BEAKER) (test zowp=519) 14.3 seconds 11.7-14.7 INR (BEAKER) (test ykwp=436) 1.1 <=5.9 PARTIAL THROMBOPLASTIN TIME (BEAKER) (test 33.3 seconds 22.5-36.0 jeyi=509) RECOMMENDED COUMADIN/WARFARIN INR THERAPY RANGESSTANDARD DOSE: 2.0 - 3.0 Includes: PROPHYLAXIS forvenous thrombosis, systemic embolization; TREATMENT for venous thrombosis and/or pulmonary embolus.HIGH RISK: Target INR is 2.5-3.5 for patients with mechanical heart valves.CBC W/PLT COUNT & AUTO [id number] 05:15:00 Test Item Value Reference Range Comments WHITE BLOOD CELL COUNT (BEAKER) (test azmb=697) 7.2 K/ L 3.5-10.5 RED BLOOD CELL COUNT (BEAKER) (test vadf=578) 3.01 M/ L 4.63-6.08 HEMOGLOBIN (BEAKER) (test hful=221) 8.5 GM/DL 13.7-17.5 HEMATOCRIT (BEAKER) (test gkwf=460) 27.0 % 40.1-51.0 MEAN CORPUSCULAR VOLUME (BEAKER) (test sspn=370) 89.7 fL 79.0-92.2 MEAN CORPUSCULAR HEMOGLOBIN (BEAKER) (test 28.2 pg 25.7-32.2 gnnm=175) MEAN CORPUSCULAR HEMOGLOBIN CONC (BEAKER) (test 31.5 GM/DL 32.3-36.5 firl=982) RED CELL DISTRIBUTION WIDTH (BEAKER) (test 14.1 % 11.6-14.4 fgjl=963) PLATELET COUNT (BEAKER) (test ebwo=398) 217 K/CU MM 150-450 MEAN PLATELET VOLUME (BEAKER) (test gchy=242) 12.1 fL 9.4-12.4 NUCLEATED RED BLOOD CELLS (BEAKER) (test 0 /100 WBC 0-0 uqoo=256) NEUTROPHILS RELATIVE PERCENT (BEAKER) (test 75 % wbam=220) LYMPHOCYTES RELATIVE PERCENT (BEAKER) (test 12 % hyul=303) MONOCYTES RELATIVE PERCENT (BEAKER) (test 10 % qtzx=512) EOSINOPHILS RELATIVE PERCENT (BEAKER) (test 3 % kcbs=992) BASOPHILS RELATIVE PERCENT (BEAKER) (test 0 % zkss=465) NEUTROPHILS ABSOLUTE COUNT (BEAKER) (test 5.39 K/ L 1.78-5.38 mzws=903) LYMPHOCYTES ABSOLUTE COUNT (BEAKER) (test 0.90 K/ L 1.32-3.57 advy=148) MONOCYTES ABSOLUTE COUNT (BEAKER) (test 0.70 K/ L 0.30-0.82 tsaj=091) EOSINOPHILS ABSOLUTE COUNT (BEAKER) (test 0.19 K/ L 0.04-0.54 rhhm=625) BASOPHILS ABSOLUTE COUNT (BEAKER) (test 0.02 K/ L 0.01-0.08 vlzd=849) IMMATURE GRANULOCYTES-RELATIVE PERCENT (BEAKER) 0 % 0-1 (test ktte=7386) POCT-GLUCOSE [id number] 21:13:00 Test Item Value Reference Range Comments POC-GLUCOSE METER (BEAKER) 180 mg/dL 70-110 TESTED AT [facility] [address] [facility] (test oiqw=5601) [place] [address] CT, CHEST, WITH [id number] 18:26:00Reason for exam:->evaluate left pl effusionWhat is [...] MDReport Verified Date/Time: 01/07/2018 18:26:42 Reading Location: [facility] C013Y CT Body Reading Room POCT-GLUCOSE [id number] 17:47:00 Test Item Value Reference Range Comments POC-GLUCOSE METER (BEAKER) 117 mg/dL 70-110 TESTED AT [address] (test xptl=6375) [place] [id number] POCT-GLUCOSE [id number] 12:18:00 Test Item Value Reference Range Comments POC-GLUCOSE METER (BEAKER) 105 mg/dL 70-110 TESTED AT [address] (test coet=1664) [place] [id number] POCT-GLUCOSE [id number] 08:47:00 Test Item Value Reference Range Comments POC-GLUCOSE METER (BEAKER) 127 mg/dL 70-110 TESTED AT [address] (test cbol=9968) [place] [address] RAD, CHEST, 1 VIEW, NON [id number] 08:14:00Reason for exam:->L effusionShould this be performed [...] changes. No pneumothoraxis seen. Signed: Lindsey Wheat MDReport Verified Date/Time: 01/07/2018 08:14:36 Reading Location: [facility] Radiology Reading Room BASIC METABOLIC [id number] 05:32:00 Test Item Value Reference Range Comments SODIUM (BEAKER) (test 131 meq/L 136-145 comj=944) POTASSIUM (BEAKER) (test 3.8 meq/L 3.5-5.1 toxx=620) CHLORIDE (BEAKER) (test 101 meq/L 98-107 gxxz=955) CO2 (BEAKER) (test 27 meq/L 22-29 iikq=504) BLOOD UREA NITROGEN 11 mg/dL 7-21 (BEAKER) (test flnp=811) CREATININE (BEAKER) (test 0.91 mg/dL 0.57-1.25 dixc=425) GLUCOSE RANDOM (BEAKER) 93 mg/dL 70-105 (test kxnp=878) CALCIUM (BEAKER) (test 9.2 mg/dL 8.4-10.2 enag=352) EGFR (BEAKER) (test 101 mL/min/1.73 sq m ESTIMATED GFR IS NOT yrad=3871) ACCURATE CREATININE CLEARANCE IN PREDICTING GLOMERULAR FILTRATION RATE. ESTIMATED GFR IS NOT APPLICABLE FOR DIALYSIS PATIENTS. POCT-GLUCOSE [id number] 21:10:00 Test Item Value Reference Range Comments POC-GLUCOSE METER (BEAKER) 124 mg/dL 70-110 TESTED AT [facility] [address] [facility] (test rvso=8487) [facility] [address] POCT-GLUCOSE [id number] 18:05:00 Test Item Value Reference Range Comments POC-GLUCOSE METER (BEAKER) 138 mg/dL 70-110 TESTED AT [facility] [address] [facility] (test gfrx=0395) [facility] [address] RAD, CHEST, 1 VIEW, NON [id number] 11:00:00Reason for exam:->L effusionShould this be performed at the bedside?->YesFINAL REPORT Chest, one view. HISTORY: Left effusion COMPARISON: 01/05/2018 IMPRESSION: No significant change. Persistent patchy opacities in the mid to lower left lung with adjacent trace left pleural effusion. Unchanged moderate interstitial edema and enlargement of the cardiomediastinal silhouette. No identifiable pneumothorax. Signed: Hawk Whaley Verified Date/Time: 11:00:40 Reading Location: [facility] C013Y CT Body Reading Room POCT- GLUCOSE [id number] 08:06:00 Test Item Value Reference Range Comments POC-GLUCOSE METER (BEAKER) 102 mg/dL 70-110 TESTED AT [address] (test xvjr=4764) [place] [id number] 04:53:00 Test Item Value Reference Range Comments MAGNESIUM (BEAKER) (test fqzp=153) 2.0 mg/dL 1.6-2.6 BASIC METABOLIC [id number] 04:53:00 Test Item Value Reference Range Comments SODIUM (BEAKER) (test 137 meq/L 136-145 zrsl=900) POTASSIUM (BEAKER) (test 3.9 meq/L 3.5-5.1 ufah=426) CHLORIDE (BEAKER) (test 102 meq/L 98-107 fikp=541) CO2 (BEAKER) (test 26 meq/L 22-29 gunb=495) BLOOD UREA NITROGEN 14 mg/dL 7-21 (BEAKER) (test hdgu=574) CREATININE (BEAKER) (test 0.96 mg/dL 0.57-1.25 uiqo=849) GLUCOSE RANDOM (BEAKER) 98 mg/dL 70-105 (test ojga=727) CALCIUM (BEAKER) (test 8.8 mg/dL 8.4-10.2 uzjv=722) EGFR (BEAKER) (test 95 mL/min/1.73 sq m ESTIMATED GFR IS NOT idly=9732) ACCURATE CREATININE CLEARANCE IN PREDICTING GLOMERULAR FILTRATION RATE. ESTIMATED GFR IS NOT APPLICABLE FOR DIALYSIS PATIENTS. CBC W/PLT COUNT & AUTO [id number] 04:25:00 Test Item Value Reference Range Comments WHITE BLOOD CELL COUNT (BEAKER) (test akjq=677) 6.3 K/ L 3.5-10.5 RED BLOOD CELL COUNT (BEAKER) (test tbkv=156) 3.03 M/ L 4.63-6.08 HEMOGLOBIN (BEAKER) (test hnzc=464) 8.7 GM/DL 13.7-17.5 HEMATOCRIT (BEAKER) (test duia=425) 27.1 % 40.1-51.0 MEAN CORPUSCULAR VOLUME (BEAKER) (test tvzu=767) 89.4 fL 79.0-92.2 MEAN CORPUSCULAR HEMOGLOBIN (BEAKER) (test 28.7 pg 25.7-32.2 cmes=990) MEAN CORPUSCULAR HEMOGLOBIN CONC (BEAKER) (test 32.1 GM/DL 32.3-36.5 opoc=542) RED CELL DISTRIBUTION WIDTH (BEAKER) (test 13.6 % 11.6-14.4 drsa=910) PLATELET COUNT (BEAKER) (test gfmo=844) 169 K/CU MM 150-450 MEAN PLATELET VOLUME (BEAKER) (test djji=024) 12.0 fL 9.4-12.4 NUCLEATED RED BLOOD CELLS (BEAKER) (test 0 /100 WBC 0-0 oppj=923) NEUTROPHILS RELATIVE PERCENT (BEAKER) (test 67 % kbjh=072) LYMPHOCYTES RELATIVE PERCENT (BEAKER) (test 18 % vodz=525) MONOCYTES RELATIVE PERCENT (BEAKER) (test 11 % cvuj=939) EOSINOPHILS RELATIVE PERCENT (BEAKER) (test 4 % ruwg=167) BASOPHILS RELATIVE PERCENT (BEAKER) (test 0 % vkcv=016) NEUTROPHILS ABSOLUTE COUNT (BEAKER) (test 4.25 K/ L 1.78-5.38 nsoz=963) LYMPHOCYTES ABSOLUTE COUNT (BEAKER) (test 1.10 K/ L 1.32-3.57 jlyk=810) MONOCYTES ABSOLUTE COUNT (BEAKER) (test 0.68 K/ L 0.30-0.82 qnkd=879) EOSINOPHILS ABSOLUTE COUNT (BEAKER) (test 0.22 K/ L 0.04-0.54 pgeo=794) BASOPHILS ABSOLUTE COUNT (BEAKER) (test 0.01 K/ L 0.01-0.08 idir=478) IMMATURE GRANULOCYTES-RELATIVE PERCENT (BEAKER) 1 % 0-1 (test wzvx=2701) POCT-GLUCOSE [id number] 21:14:00 Test Item Value Reference Range Comments POC-GLUCOSE METER (BEAKER) 147 mg/dL 70-110 TESTED AT [facility] [address] [facility] (test thqt=9381) [facility] [id number] RAD, CHEST, 1 VIEW, NON [id number] 09:09:00Reason for exam:->L effusionShould this be performed at the bedside?->YesFINAL REPORT Chest, one view. HISTORY: Effusion COMPARISON: 01/03/2018 IMPRESSION : Unchanged patchy opacities in the left mid to lower lung with adjacent trace left pleural effusion. Unchanged moderate interstitial edema and enlargement of the cardiomediastinal silhouette. No identifiable pneumothorax. Signed: Hawk Whaley MDReport Verified Date/Time: 01/05/2018 09:09:30 Reading Location: [facility] C013Y CT Body Reading Room Electronically signed by: HAWK WHALEY MD on01/05/2018 09:09 [id number] 07:24:00 Test Item Value Reference Range Comments MAGNESIUM (BEAKER) (test mqhh=172) 2.1 mg/dL 1.6-2.6 BASIC METABOLIC [id number] 07:24:00 Test Item Value Reference Range Comments SODIUM (BEAKER) (test 136 meq/L 136-145 zmdq=517) POTASSIUM (BEAKER) (test 3.8 meq/L 3.5-5.1 gwqb=847) CHLORIDE (BEAKER) (test 101 meq/L 98-107 zchn=173) CO2 (BEAKER) (test 29 meq/L 22-29 dsov=266) BLOOD UREA NITROGEN 12 mg/dL 7-21 (BEAKER) (test bxrb=530) CREATININE (BEAKER) (test 0.94 mg/dL 0.57-1.25 ytem=632) GLUCOSE RANDOM (BEAKER) 96 mg/dL 70-105 (test hjnt=947) CALCIUM (BEAKER) (test 9.1 mg/dL 8.4-10.2 fawv=668) EGFR (BEAKER) (test 97 mL/min/1.73 sq m ESTIMATED GFR IS NOT ocrg=8188) ACCURATE CREATININE CLEARANCE IN PREDICTING GLOMERULAR FILTRATION RATE. ESTIMATED GFR IS NOT APPLICABLE FOR DIALYSIS PATIENTS. CBC W/PLT COUNT & AUTO [id number] 07:01:00 Test Item Value Reference Range Comments WHITE BLOOD CELL COUNT (BEAKER) (test qdkc=505) 6.3 K/ L 3.5-10.5 RED BLOOD CELL COUNT (BEAKER) (test ksik=677) 3.02 M/ L 4.63-6.08 HEMOGLOBIN (BEAKER) (test jciu=993) 8.7 GM/DL 13.7-17.5 HEMATOCRIT (BEAKER) (test osjm=164) 27.4 % 40.1-51.0 MEAN CORPUSCULAR VOLUME (BEAKER) (test mrza=906) 90.7 fL 79.0-92.2 MEAN CORPUSCULAR HEMOGLOBIN (BEAKER) (test 28.8 pg 25.7-32.2 wqto=881) MEAN CORPUSCULAR HEMOGLOBIN CONC (BEAKER) (test 31.8 GM/DL 32.3-36.5 vjqh=958) RED CELL DISTRIBUTION WIDTH (BEAKER) (test 13.8 % 11.6-14.4 nals=277) PLATELET COUNT (BEAKER) (test jizm=903) 161 K/CU MM 150-450 MEAN PLATELET VOLUME (BEAKER) (test tkvn=696) 12.2 fL 9.4-12.4 NUCLEATED RED BLOOD CELLS (BEAKER) (test 0 /100 WBC 0-0 jdnu=063) NEUTROPHILS RELATIVE PERCENT (BEAKER) (test 74 % tsak=223) LYMPHOCYTES RELATIVE PERCENT (BEAKER) (test 12 % hesr=356) MONOCYTES RELATIVE PERCENT (BEAKER) (test 10 % hbnw=760) EOSINOPHILS RELATIVE PERCENT (BEAKER) (test 3 % yfeh=664) BASOPHILS RELATIVE PERCENT (BEAKER) (test 0 % ptmx=945) NEUTROPHILS ABSOLUTE COUNT (BEAKER) (test 4.65 K/ L 1.78-5.38 obzc=310) LYMPHOCYTES ABSOLUTE COUNT (BEAKER) (test 0.74 K/ L 1.32-3.57 prjb=284) MONOCYTES ABSOLUTE COUNT (BEAKER) (test 0.65 K/ L 0.30-0.82 fxco=960) EOSINOPHILS ABSOLUTE COUNT (BEAKER) (test 0.17 K/ L 0.04-0.54 lbif=923) BASOPHILS ABSOLUTE COUNT (BEAKER) (test 0.01 K/ L 0.01-0.08 tbei=100) IMMATURE GRANULOCYTES-RELATIVE PERCENT (BEAKER) 1 % 0-1 (test ysro=4070) POCT-GLUCOSE [id number] 22:13:00 Test Item Value Reference Range Comments POC-GLUCOSE METER (BEAKER) 168 mg/dL 70-110 TESTED AT [address] (test ppyn=4116) [place] [address] POCT-GLUCOSE [id number] 18:09:00 Test Item Value Reference Range Comments POC-GLUCOSE METER (BEAKER) 119 mg/dL 70-110 TESTED AT [address] (test fxmy=4345) [place] [address] POCT-GLUCOSE [id number] 12:32:00 Test Item Value Reference Range Comments POC-GLUCOSE METER (BEAKER) 128 mg/dL 70-110 TESTED AT [address] (test josx=7797) [place] [id number] POCT-GLUCOSE [id number] 08:15:00 Test Item Value Reference Range Comments POC-GLUCOSE METER (BEAKER) 107 mg/dL 70-110 TESTED AT [address] (test tgbs=9927) [place] [address] [id number] 03:56:00 Test Item Value Reference Range Comments MAGNESIUM (BEAKER) (test mdeo=950) 2.2 mg/dL 1.6-2.6 BASIC METABOLIC [id number] 03:56:00 Test Item Value Reference Range Comments SODIUM (BEAKER) (test 136 meq/L 136-145 iqvf=528) POTASSIUM (BEAKER) (test 3.9 meq/L 3.5-5.1 nqsu=583) CHLORIDE (BEAKER) (test 103 meq/L 98-107 ffiq=323) CO2 (BEAKER) (test 27 meq/L 22-29 svzr=012) BLOOD UREA NITROGEN 16 mg/dL 7-21 (BEAKER) (test joxk=837) CREATININE (BEAKER) (test 0.97 mg/dL 0.57-1.25 igcp=279) GLUCOSE RANDOM (BEAKER) 100 mg/dL 70-105 (test latf=456) CALCIUM (BEAKER) (test 8.4 mg/dL 8.4-10.2 wqov=732) EGFR (BEAKER) (test 94 mL/min/1.73 sq m ESTIMATED GFR IS NOT hufj=0793) ACCURATE CREATININE CLEARANCE IN PREDICTING GLOMERULAR FILTRATION RATE. ESTIMATED GFR IS NOT APPLICABLE FOR DIALYSIS PATIENTS. CBC W/PLT COUNT & AUTO [id number] 03:40:00 Test Item Value Reference Range Comments WHITE BLOOD CELL COUNT (BEAKER) (test rbsu=406) 6.3 K/ L 3.5-10.5 RED BLOOD CELL COUNT (BEAKER) (test jmak=378) 2.61 M/ L 4.63-6.08 HEMOGLOBIN (BEAKER) (test skbl=527) 7.5 GM/DL 13.7-17.5 HEMATOCRIT (BEAKER) (test dinl=926) 23.1 % 40.1-51.0 MEAN CORPUSCULAR VOLUME (BEAKER) (test pffr=409) 88.5 fL 79.0-92.2 MEAN CORPUSCULAR HEMOGLOBIN (BEAKER) (test 28.7 pg 25.7-32.2 pqny=735) MEAN CORPUSCULAR HEMOGLOBIN CONC (BEAKER) (test 32.5 GM/DL 32.3-36.5 tkwm=193) RED CELL DISTRIBUTION WIDTH (BEAKER) (test 13.8 % 11.6-14.4 evcq=428) PLATELET COUNT (BEAKER) (test pcrr=318) 108 K/CU MM 150-450 MEAN PLATELET VOLUME (BEAKER) (test qeai=943) 12.2 fL 9.4-12.4 NUCLEATED RED BLOOD CELLS (BEAKER) (test 0 /100 WBC 0-0 uspk=617) NEUTROPHILS RELATIVE PERCENT (BEAKER) (test 69 % cjmr=565) LYMPHOCYTES RELATIVE PERCENT (BEAKER) (test 16 % gyly=954) MONOCYTES RELATIVE PERCENT (BEAKER) (test 10 % pjcr=319) EOSINOPHILS RELATIVE PERCENT (BEAKER) (test 4 % kdlh=857) BASOPHILS RELATIVE PERCENT (BEAKER) (test 0 % wbnj=835) NEUTROPHILS ABSOLUTE COUNT (BEAKER) (test 4.34 K/ L 1.78-5.38 pkiq=047) LYMPHOCYTES ABSOLUTE COUNT (BEAKER) (test 0.99 K/ L 1.32-3.57 bdxu=757) MONOCYTES ABSOLUTE COUNT (BEAKER) (test 0.65 K/ L 0.30-0.82 jxtt=881) EOSINOPHILS ABSOLUTE COUNT (BEAKER) (test 0.25 K/ L 0.04-0.54 jndg=874) BASOPHILS ABSOLUTE COUNT (BEAKER) (test 0.01 K/ L 0.01-0.08 ihts=599) IMMATURE GRANULOCYTES-RELATIVE PERCENT (BEAKER) 0 % 0-1 (test npvw=3259) POCT-GLUCOSE [id number] 22:17:00 Test Item Value Reference Range Comments POC-GLUCOSE METER (BEAKER) 133 mg/dL 70-110 TESTED AT [address] (test wbhi=2273) [place] [id number] POCT-GLUCOSE [id number] 18:41:00 Test Item Value Reference Range Comments POC-GLUCOSE METER (BEAKER) 132 mg/dL 70-110 TESTED AT [address] (test ajxc=1551) [facility] [address] LACTIC ACID, VENOUS, WHOLE [id number] 16:56:00 Test Item Value Reference Range Comments LACTATE BLOOD VENOUS (2) (BEAKER) (test 1.1 mmol/L 0.5-2.2 vpbl=5211) Effective 10/13/2015: Units/Reference Range ChangeNew: 0.5-2.2 mmol/L Previous: 5 -20 mg/dLHEMOGLOBIN AND [id number] 16:49:00 Test Item Value Reference Range Comments HEMOGLOBIN (BEAKER) (test azzo=938) 7.7 GM/DL 13.7-17.5 HEMATOCRIT (BEAKER) (test uvsh=202) 24.7 % 40.1-51.0 CBC (HEMOGRAM ONLY)2018-01-03 09:40:00 Test Item Value Reference Range Comments WHITE BLOOD CELL COUNT (BEAKER) (test isxq=215) 7.6 K/ L 3.5-10.5 RED BLOOD CELL COUNT (BEAKER) (test ljjr=467) 2.59 M/ L 4.63-6.08 HEMOGLOBIN (BEAKER) (test yfef=011) 7.4 GM/DL 13.7-17.5 HEMATOCRIT (BEAKER) (test wbro=197) 23.4 % 40.1-51.0 MEAN CORPUSCULAR VOLUME (BEAKER) (test mapj=830) 90.3 fL 79.0-92.2 MEAN CORPUSCULAR HEMOGLOBIN (BEAKER) (test 28.6 pg 25.7-32.2 hbwo=848) MEAN CORPUSCULAR HEMOGLOBIN CONC (BEAKER) (test 31.6 GM/DL 32.3-36.5 hdxq=015) RED CELL DISTRIBUTION WIDTH (BEAKER) (test 14.2 % 11.6-14.4 gfxs=511) PLATELET COUNT (BEAKER) (test ovhm=791) 96 K/CU MM 150-450 MEAN PLATELET VOLUME (BEAKER) (test inna=195) 12.8 fL 9.4-12.4 NUCLEATED RED BLOOD CELLS (BEAKER) (test 0 /100 WBC 0-0 ytjb=976) RAD, CHEST, 1 VIEW, NON [id number] 04:24:00Reason for exam:->s/p cardiac surgeryShould this be [...] MDReport Verified Date/Time: 01/03/2018 04:24:29 Reading Location: [facility] [id number] Transitional Reading Room 04:24 [id number] 03:43:00 Test Item Value Reference Range Comments PHOSPHORUS (BEAKER) (test behh=367) 2.6 mg/dL 2.3-4.7 [id number] 03:43:00 Test Item Value Reference Range Comments MAGNESIUM (BEAKER) (test djyf=983) 1.9 mg/dL 1.6-2.6 BASIC METABOLIC [id number] 03:43:00 Test Item Value Reference Range Comments SODIUM (BEAKER) (test 136 meq/L 136-145 hqsb=606) POTASSIUM (BEAKER) (test 3.7 meq/L 3.5-5.1 basz=398) CHLORIDE (BEAKER) (test 103 meq/L 98-107 ttpv=199) CO2 (BEAKER) (test 27 meq/L 22-29 ytvt=065) BLOOD UREA NITROGEN 16 mg/dL 7-21 (BEAKER) (test ntui=362) CREATININE (BEAKER) (test 0.92 mg/dL 0.57-1.25 xydk=868) GLUCOSE RANDOM (BEAKER) 106 mg/dL 70-105 (test dmes=464) CALCIUM (BEAKER) (test 8.7 mg/dL 8.4-10.2 jiih=954) EGFR (BEAKER) (test 99 mL/min/1.73 sq m ESTIMATED GFR IS NOT rlaj=4610) ACCURATE CREATININE CLEARANCE IN PREDICTING GLOMERULAR FILTRATION RATE. ESTIMATED GFR IS NOT APPLICABLE FOR DIALYSIS PATIENTS. HEPATIC FUNCTION [id number] 03:43:00 Test Item Value Reference Range Comments TOTAL PROTEIN (BEAKER) (test gepe=474) 5.8 gm/dL 6.0-8.3 ALBUMIN (BEAKER) (test azte=0749) 3.1 g/dL 3.5-5.0 BILIRUBIN TOTAL (BEAKER) (test gsio=317) 0.9 mg/dL 0.2-1.2 BILIRUBIN DIRECT (BEAKER) (test jhic=489) 0.5 mg/dL 0.1-0.5 ALKALINE PHOSPHATASE (BEAKER) (test rbbk=775) 47 U/L 40-150 AST (SGOT) (BEAKER) (test kpor=874) 23 U/L 5-34 ALT (SGPT) (BEAKER) (test dgwb=805) 8 U/L 6-55 PROTHROMBIN [id number] 03:36:00 Test Item Value Reference Range Comments PROTIME (BEAKER) (test hsmm=151) 14.3 seconds 11.7-14.7 INR (BEAKER) (test lvhf=766) 1.1 <=5.9 RECOMMENDED COUMADIN/WARFARIN INR THERAPY RANGESSTANDARD DOSE: 2.0 - 3.0 Includes: PROPHYLAXIS forvenous thrombosis, systemic embolization; TREATMENT for venous thrombosis and/or pulmonary embolus.HIGH RISK: Target INR is 2.5-3.5 for patients with mechanical heart valves.[id number] 03:36:00 Test Item Value Reference Range Comments PARTIAL THROMBOPLASTIN TIME (BEAKER) (test 32.0 seconds 22.5-36.0 esou=280) CBC W/PLT COUNT & AUTO [id number] 03:26:00 Test Item Value Reference Range Comments WHITE BLOOD CELL COUNT (BEAKER) (test vfxm=513) 8.5 K/ L 3.5-10.5 RED BLOOD CELL COUNT (BEAKER) (test tcdg=669) 2.82 M/ L 4.63-6.08 HEMOGLOBIN (BEAKER) (test eqsd=672) 7.9 GM/DL 13.7-17.5 HEMATOCRIT (BEAKER) (test flln=644) 25.4 % 40.1-51.0 MEAN CORPUSCULAR VOLUME (BEAKER) (test nbmc=630) 90.1 fL 79.0-92.2 MEAN CORPUSCULAR HEMOGLOBIN (BEAKER) (test 28.0 pg 25.7-32.2 hisk=164) MEAN CORPUSCULAR HEMOGLOBIN CONC (BEAKER) (test 31.1 GM/DL 32.3-36.5 lucl=990) RED CELL DISTRIBUTION WIDTH (BEAKER) (test 14.0 % 11.6-14.4 etxy=974) PLATELET COUNT (BEAKER) (test iczy=630) 96 K/CU MM 150-450 MEAN PLATELET VOLUME (BEAKER) (test qixc=434) 12.3 fL 9.4-12.4 NUCLEATED RED BLOOD CELLS (BEAKER) (test 0 /100 WBC 0-0 qluu=034) NEUTROPHILS RELATIVE PERCENT (BEAKER) (test 78 % shwi=645) LYMPHOCYTES RELATIVE PERCENT (BEAKER) (test 11 % fpct=277) MONOCYTES RELATIVE PERCENT (BEAKER) (test 8 % fnrl=627) EOSINOPHILS RELATIVE PERCENT (BEAKER) (test 2 % ojtq=600) BASOPHILS RELATIVE PERCENT (BEAKER) (test 0 % pwkx=281) NEUTROPHILS ABSOLUTE COUNT (BEAKER) (test 6.60 K/ L 1.78-5.38 tpun=174) LYMPHOCYTES ABSOLUTE COUNT (BEAKER) (test 0.92 K/ L 1.32-3.57 dbyl=040) MONOCYTES ABSOLUTE COUNT (BEAKER) (test edzp=393) 0.69 K/ L 0.30-0.82 EOSINOPHILS ABSOLUTE COUNT (BEAKER) (test 0.18 K/ L 0.04-0.54 bbxk=181) BASOPHILS ABSOLUTE COUNT (BEAKER) (test nfaq=006) 0.02 K/ L 0.01-0.08 IMMATURE GRANULOCYTES-RELATIVE PERCENT (BEAKER) 1 % 0-1 (test ygot=4289) OXYGEN SATURATION, [id number] 03:25:00 Test Item Value Reference Range Comments O2 SATURATION (MEASURED) (BEAKER) (test pttu=0524) 90.1 % CALCIUM, [id number] 03:25:00 Test Item Value Reference Range Comments CALCIUM IONIZED (BEAKER) (test qttc=471) 1.11 mmol/L 1.12-1.27 PH, BLOOD (BEAKER) (test spdr=3106) 7.42 HEMOGLOBIN AND [id number] 20:22:00 Test Item Value Reference Range Comments HEMOGLOBIN (BEAKER) (test ppgm=337) 6.8 GM/DL 13.7-17.5 HEMATOCRIT (BEAKER) (test mvro=181) 21.1 % 40.1-51.0 POCT-GLUCOSE [id number] 18:11:00 Test Item Value Reference Range Comments POC-GLUCOSE METER (BEAKER) 119 mg/dL 70-110 TESTED AT [facility] [address] [facility] (test hziy=9544) [facility] [address] POCT-GLUCOSE [id number] 15:15:00 Test Item Value Reference Range Comments POC-GLUCOSE METER (BEAKER) 131 mg/dL 70-110 TESTED AT [place] [id number] [facility] (test iflv=8567) [facility] [address] RAD, CHEST, 1 VIEW, NON [id number] 14:13:00Reason for exam:->s/p cardiac surgeryShould this be [...] MDReport Verified Date/Time: 2017 14:13:48 Reading Location: [facility] Diagnostic Imaging Reading Room - [place] [address] CBC W/PLT COUNT & AUTO [id number] 07:31:00 Test Item Value Reference Range Comments WHITE BLOOD CELL COUNT (BEAKER) (test xhsi=947) 8.7 K/ L 3.5-10.5 RED BLOOD CELL COUNT (BEAKER) (test xpoa=031) 2.43 M/ L 4.63-6.08 HEMOGLOBIN (BEAKER) (test qmgv=702) 6.9 GM/DL 13.7-17.5 HEMATOCRIT (BEAKER) (test czlc=692) 21.4 % 40.1-51.0 MEAN CORPUSCULAR VOLUME (BEAKER) (test zyfp=850) 88.1 fL 79.0-92.2 MEAN CORPUSCULAR HEMOGLOBIN (BEAKER) (test 28.4 pg 25.7-32.2 ajcc=128) MEAN CORPUSCULAR HEMOGLOBIN CONC (BEAKER) (test 32.2 GM/DL 32.3-36.5 ennq=977) RED CELL DISTRIBUTION WIDTH (BEAKER) (test 13.2 % 11.6-14.4 asss=618) PLATELET COUNT (BEAKER) (test bnky=920) 103 K/CU MM 150-450 MEAN PLATELET VOLUME (BEAKER) (test qvny=500) 12.6 fL 9.4-12.4 NUCLEATED RED BLOOD CELLS (BEAKER) (test 0 /100 WBC 0-0 yxqo=182) NEUTROPHILS RELATIVE PERCENT (BEAKER) (test 85 % ttcb=702) LYMPHOCYTES RELATIVE PERCENT (BEAKER) (test 6 % vybc=316) MONOCYTES RELATIVE PERCENT (BEAKER) (test 8 % qtmv=976) EOSINOPHILS RELATIVE PERCENT (BEAKER) (test 1 % nlir=283) BASOPHILS RELATIVE PERCENT (BEAKER) (test 0 % qghq=757) NEUTROPHILS ABSOLUTE COUNT (BEAKER) (test 7.37 K/ L 1.78-5.38 wzfs=312) LYMPHOCYTES ABSOLUTE COUNT (BEAKER) (test 0.50 K/ L 1.32-3.57 pgxn=281) MONOCYTES ABSOLUTE COUNT (BEAKER) (test 0.72 K/ L 0.30-0.82 ubai=634) EOSINOPHILS ABSOLUTE COUNT (BEAKER) (test 0.05 K/ L 0.04-0.54 vqvo=876) BASOPHILS ABSOLUTE COUNT (BEAKER) (test 0.01 K/ L 0.01-0.08 tgwk=184) IMMATURE GRANULOCYTES-RELATIVE PERCENT (BEAKER) 1 % 0-1 (test egts=1825) [id number] 05:32:00 Test Item Value Reference Range Comments PHOSPHORUS (BEAKER) (test yorv=501) 2.8 mg/dL 2.3-4.7 [id number] 05:32:00 Test Item Value Reference Range Comments MAGNESIUM (BEAKER) (test vozr=515) 1.8 mg/dL 1.6-2.6 BASIC METABOLIC [id number] 05:32:00 Test Item Value Reference Range Comments SODIUM (BEAKER) (test 139 meq/L 136-145 sxhj=784) POTASSIUM (BEAKER) (test 3.8 meq/L 3.5-5.1 pfqe=200) CHLORIDE (BEAKER) (test 106 meq/L 98-107 krvg=723) CO2 (BEAKER) (test 26 meq/L 22-29 xolg=767) BLOOD UREA NITROGEN 12 mg/dL 7-21 (BEAKER) (test wodl=098) CREATININE (BEAKER) (test 1.00 mg/dL 0.57-1.25 dpqh=245) GLUCOSE RANDOM (BEAKER) 118 mg/dL 70-105 (test exkx=713) CALCIUM (BEAKER) (test 8.7 mg/dL 8.4-10.2 pabf=114) EGFR (BEAKER) (test 90 mL/min/1.73 sq m ESTIMATED GFR IS NOT swid=9189) ACCURATE CREATININE CLEARANCE IN PREDICTING GLOMERULAR FILTRATION RATE. ESTIMATED GFR IS NOT APPLICABLE FOR DIALYSIS PATIENTS. HEPATIC FUNCTION [id number] 05:32:00 Test Item Value Reference Range Comments TOTAL PROTEIN (BEAKER) (test kdld=589) 5.6 gm/dL 6.0-8.3 ALBUMIN (BEAKER) (test qjcl=2681) 3.0 g/dL 3.5-5.0 BILIRUBIN TOTAL (BEAKER) (test tlyh=729) 0.8 mg/dL 0.2-1.2 BILIRUBIN DIRECT (BEAKER) (test cbnb=287) 0.4 mg/dL 0.1-0.5 ALKALINE PHOSPHATASE (BEAKER) (test fnad=024) 46 U/L 40-150 AST (SGOT) (BEAKER) (test tpdy=069) 31 U/L 5-34 ALT (SGPT) (BEAKER) (test uozy=004) 11 U/L 6-55 CBC W/PLT COUNT & AUTO [id number] 05:13:00 Test Item Value Reference Range Comments WHITE BLOOD CELL COUNT (BEAKER) (test vjjk=831) 8.5 K/ L 3.5-10.5 RED BLOOD CELL COUNT (BEAKER) (test dcuo=348) 2.39 M/ L 4.63-6.08 HEMOGLOBIN (BEAKER) (test kjfz=123) 6.8 GM/DL 13.7-17.5 HEMATOCRIT (BEAKER) (test ngaa=340) 21.4 % 40.1-51.0 MEAN CORPUSCULAR VOLUME (BEAKER) (test rikm=543) 89.5 fL 79.0-92.2 MEAN CORPUSCULAR HEMOGLOBIN (BEAKER) (test 28.5 pg 25.7-32.2 dync=148) MEAN CORPUSCULAR HEMOGLOBIN CONC (BEAKER) (test 31.8 GM/DL 32.3-36.5 ucua=572) RED CELL DISTRIBUTION WIDTH (BEAKER) (test 13.4 % 11.6-14.4 zwlq=250) PLATELET COUNT (BEAKER) (test ldvp=970) 87 K/CU MM 150-450 MEAN PLATELET VOLUME (BEAKER) (test qrlq=211) 12.4 fL 9.4-12.4 NUCLEATED RED BLOOD CELLS (BEAKER) (test 0 /100 WBC 0-0 volr=497) NEUTROPHILS RELATIVE PERCENT (BEAKER) (test 83 % ozoj=093) LYMPHOCYTES RELATIVE PERCENT (BEAKER) (test 9 % nzot=813) MONOCYTES RELATIVE PERCENT (BEAKER) (test 7 % tjft=218) EOSINOPHILS RELATIVE PERCENT (BEAKER) (test 1 % zpwy=918) BASOPHILS RELATIVE PERCENT (BEAKER) (test 0 % qsbf=575) NEUTROPHILS ABSOLUTE COUNT (BEAKER) (test 7.07 K/ L 1.78-5.38 hqbb=853) LYMPHOCYTES ABSOLUTE COUNT (BEAKER) (test 0.79 K/ L 1.32-3.57 fhjl=617) MONOCYTES ABSOLUTE COUNT (BEAKER) (test qasi=853) 0.59 K/ L 0.30-0.82 EOSINOPHILS ABSOLUTE COUNT (BEAKER) (test 0.04 K/ L 0.04-0.54 zvfp=291) BASOPHILS ABSOLUTE COUNT (BEAKER) (test yxby=667) 0.01 K/ L 0.01-0.08 IMMATURE GRANULOCYTES-RELATIVE PERCENT (BEAKER) 1 % 0-1 (test nrby=4924) [id number] 05:08:00 Test Item Value Reference Range Comments PARTIAL THROMBOPLASTIN TIME (BEAKER) (test 33.1 seconds 22.5-36.0 vinh=958) PROTHROMBIN [id number] 05:07:00 Test Item Value Reference Range Comments PROTIME (BEAKER) (test vday=811) 15.3 seconds 11.7-14.7 INR (BEAKER) (test omyv=009) 1.2 <=5.9 RECOMMENDED COUMADIN/WARFARIN INR THERAPY RANGESSTANDARD DOSE: 2.0 - 3.0 Includes: PROPHYLAXIS forvenous thrombosis, systemic embolization; TREATMENT for venous thrombosis and/or pulmonary embolus.HIGH RISK: Target INR is 2.5-3.5 for patients with mechanical heart valves.CALCIUM, [id number] 04:54:00 Test Item Value Reference Range Comments CALCIUM IONIZED (BEAKER) (test hpnp=524) 1.12 mmol/L 1.12-1.27 PH, BLOOD (BEAKER) (test stho=6021) 7.42 OXYGEN SATURATION, [id number] 04:49:00 Test Item Value Reference Range Comments O2 SATURATION (MEASURED) (BEAKER) (test bowl=1505) 52.3 % HEMOGLOBIN AND [id number] 11:00:00 Test Item Value Reference Range Comments HEMOGLOBIN (BEAKER) (test azkb=575) 7.3 GM/DL 13.7-17.5 HEMATOCRIT (BEAKER) (test aiah=642) 22.0 % 40.1-51.0 BLOOD GAS, [id number] 10:38:00 Test Item Value Reference Range Comments PH ARTERIAL (BEAKER) (test uqyk=751) 7.45 7.35-7.45 PCO2 ARTERIAL (BEAKER) (test kqhg=493) 37 mm Hg 35-45 PO2 ARTERIAL (BEAKER) (test pmwz=098) 74 mm Hg 80-90 O2 SATURATION ARTERIAL (BEAKER) (test ebch=510) 95.2 % 96.0-97.0 HCO3 ARTERIAL (BEAKER) (test mnvi=359) 25 mmol/L 21-29 BASE EXCESS ARTERIAL (BEAKER) (test ttbm=307) 1.1 mmol/L -2.0-3.0 PATIENT TEMPERATURE (BEAKER) (test cnnh=8921) 37.7 FIO2 (BEAKER) (test shtf=0881) 36 BLOOD GAS, [id number] 08:53:00 Test Item Value Reference Range Comments PH ARTERIAL (BEAKER) (test ubdt=740) 7.52 7.35-7.45 PCO2 ARTERIAL (BEAKER) (test uoyd=555) 30 mm Hg 35-45 PO2 ARTERIAL (BEAKER) (test wkqz=229) 169 mm Hg 80-90 O2 SATURATION ARTERIAL (BEAKER) (test wywo=358) 99.3 % 96.0-97.0 HCO3 ARTERIAL (BEAKER) (test mgmc=223) 24 mmol/L 21-29 BASE EXCESS ARTERIAL (BEAKER) (test qtzu=560) 0.7 mmol/L -2.0-3.0 PATIENT TEMPERATURE (BEAKER) (test jxwu=8780) 36.9 FIO2 (BEAKER) (test nsvm=9872) 40 GLUCOSE-STAT [id number] 08:52:00 Test Item Value Reference Range Comments GLUCOSE RANDOM (BEAKER) (test atmp=531) 111 mg/dL 70-110 RAD, CHEST, 1 VIEW, NON [id number] 07:32:00Reason for exam:->s/p cardiac surgeryShould this be performed at the bedside?->YesFINAL REPORT CLINICAL HISTORY: s/p cardiac surgery TECHNIQUE: 1 view of the chest. COMPARISON: 12/31/2017 IMPRESSION: The supporting lines and tubes are unchanged. There is no pneumothorax. Mild pulmonary vascular congestive findings are unchanged. The cardiomediastinal silhouette is magnified by technique with sternotomy wires. Signed: Julianna Gillette MDReport Verified Date/ Time: 01/01/2018 07:32:34 Reading Location: [facility] Radiology Reading Room HEMOGLOBIN-STAT [id number] 06:50:00 Test Item Value Reference Range Comments HEMOGLOBIN (BEAKER) (test ywfv=586) 7.8 g/dL 13.0-16.8 HEMATOCRIT-STAT [id number] 06:50:00 Test Item Value Reference Range Comments HEMATOCRIT (BEAKER) (test maub=841) 23.0 % 40.0-50.0 POCT-GLUCOSE [id number] 06:08:00 Test Item Value Reference Range Comments POC-GLUCOSE METER (BEAKER) 130 mg/dL 70-110 TESTED AT [facility] [address] [facility] (test sdeq=8943) [facility] [address] OXYGEN SATURATION, [id number] 05:33:00 Test Item Value Reference Range Comments O2 SATURATION (MEASURED) (BEAKER) (test kalm=2046) 66.9 % BLOOD GAS, [id number] 04:57:00 Test Item Value Reference Range Comments PH ARTERIAL (BEAKER) (test mfwk=929) 7.52 7.35-7.45 PCO2 ARTERIAL (BEAKER) (test fwmy=233) 34 mmHg 35-45 PO2 ARTERIAL (BEAKER) (test kbfl=194) 239 mmHg 80-90 O2 SATURATION ARTERIAL (BEAKER) (test yfms=767) 99.6 % 96.0-97.0 HCO3 ARTERIAL (BEAKER) (test acby=288) 27 mmol/L 21-29 BASE EXCESS ARTERIAL (BEAKER) (test eiyq=295) 4.0 mmol/L -2.0-3.0 PATIENT TEMPERATURE (BEAKER) (test upib=1535) 38.2 C FIO2 (BEAKER) (test mipf=3679) 40.0 % 30 minutes after spontaneous breathing trial (SBT)CALCIUM, [id number] 04: 57:00 Test Item Value Reference Range Comments CALCIUM IONIZED (BEAKER) (test icpi=425) 1.06 mmol/L 1.12-1.27 PH, BLOOD (BEAKER) (test bjys=1909) 7.54 POCT-GLUCOSE [id number] 04:21:00 Test Item Value Reference Range Comments POC-GLUCOSE METER (BEAKER) 137 mg/dL 70-110 TESTED AT [facility] [address] [facility] (test chyu=4587) [facility] [address] HEPATIC FUNCTION [id number] 04:10:00 Test Item Value Reference Range Comments TOTAL PROTEIN (BEAKER) (test bpei=281) 5.4 gm/dL 6.0-8.3 ALBUMIN (BEAKER) (test vtmc=1825) 3.0 g/dL 3.5-5.0 BILIRUBIN TOTAL (BEAKER) (test zsok=557) 1.0 mg/dL 0.2-1.2 BILIRUBIN DIRECT (BEAKER) (test pspd=321) 0.4 mg/dL 0.1-0.5 ALKALINE PHOSPHATASE (BEAKER) (test epqx=940) 47 U/L 40-150 AST (SGOT) (BEAKER) (test givo=072) 41 U/L 5-34 ALT (SGPT) (BEAKER) (test yysc=161) 10 U/L 6-55 BASIC METABOLIC [id number] 04:10:00 Test Item Value Reference Range Comments SODIUM (BEAKER) (test 140 meq/L 136-145 mfbr=780) POTASSIUM (BEAKER) (test 3.8 meq/L 3.5-5.1 pitv=760) CHLORIDE (BEAKER) (test 111 meq/L 98-107 rszk=144) CO2 (BEAKER) (test 21 meq/L 22-29 yxts=889) BLOOD UREA NITROGEN 11 mg/dL 7-21 (BEAKER) (test rtxl=515) CREATININE (BEAKER) (test 1.08 mg/dL 0.57-1.25 oboo=033) GLUCOSE RANDOM (BEAKER) 136 mg/dL 70-105 (test judh=267) CALCIUM (BEAKER) (test 8.5 mg/dL 8.4-10.2 hdxk=808) EGFR (BEAKER) (test 83 mL/min/1.73 sq m ESTIMATED GFR IS NOT tnas=0424) ACCURATE CREATININE CLEARANCE IN PREDICTING GLOMERULAR FILTRATION RATE. ESTIMATED GFR IS NOT APPLICABLE FOR DIALYSIS PATIENTS. [id number] 04:10:00 Test Item Value Reference Range Comments MAGNESIUM (BEAKER) (test dxmd=279) 1.9 mg/dL 1.6-2.6 [id number] 04:10:00 Test Item Value Reference Range Comments PHOSPHORUS (BEAKER) (test fdlf=926) 2.3 mg/dL 2.3-4.7 VANCOMYCIN LEVEL, [id number] 04:06:00 Test Item Value Reference Range Comments VANCOMYCIN RANDOM (BEAKER) (test dnoy=495) 5.4 ug/mL Reference Range: No [id number] 04:03:00 Test Item Value Reference Range Comments PARTIAL THROMBOPLASTIN TIME (BEAKER) (test 31.1 seconds 22.5-36.0 cwwh=564) PROTHROMBIN [id number] 04:02:00 Test Item Value Reference Range Comments PROTIME (BEAKER) (test dvta=400) 16.8 seconds 11.7-14.7 INR (BEAKER) (test fbmn=212) 1.4 <=5.9 RECOMMENDED COUMADIN/WARFARIN INR THERAPY RANGESSTANDARD DOSE: 2.0 - 3.0 Includes: PROPHYLAXIS forvenous thrombosis, systemic embolization; TREATMENT for venous thrombosis and/or pulmonary embolus.HIGH RISK: Target INR is 2.5-3.5 for patients with mechanical heart valves.LACTIC ACID, ARTERIAL, WHOLE [id number] 04:02:00 Test Item Value Reference Range Comments LACTATE BLOOD ARTERIAL (2) (BEAKER) (test 1.4 mmol/L 0.5-2.2 jrml=4300) Effective 10/13/2015: Units/Reference Range ChangeNew: 0.5-2.2 mmol/L Previous: 5 -20 mg/dLCBC W/PLT COUNT & AUTO [id number] 03:51:00 Test Item Value Reference Range Comments WHITE BLOOD CELL COUNT (BEAKER) (test byoy=080) 6.1 K/ L 3.5-10.5 RED BLOOD CELL COUNT (BEAKER) (test rrjs=136) 2.54 M/ L 4.63-6.08 HEMOGLOBIN (BEAKER) (test yznf=663) 7.4 GM/DL 13.7-17.5 HEMATOCRIT (BEAKER) (test bukn=939) 22.4 % 40.1-51.0 MEAN CORPUSCULAR VOLUME (BEAKER) (test ejhc=758) 88.2 fL 79.0-92.2 MEAN CORPUSCULAR HEMOGLOBIN (BEAKER) (test 29.1 pg 25.7-32.2 nwrq=029) MEAN CORPUSCULAR HEMOGLOBIN CONC (BEAKER) (test 33.0 GM/DL 32.3-36.5 xshh=098) RED CELL DISTRIBUTION WIDTH (BEAKER) (test 13.3 % 11.6-14.4 iksc=821) PLATELET COUNT (BEAKER) (test eyhn=524) 97 K/CU MM 150-450 MEAN PLATELET VOLUME (BEAKER) (test xrwm=279) 11.5 fL 9.4-12.4 NUCLEATED RED BLOOD CELLS (BEAKER) (test 0 /100 WBC 0-0 qupv=847) NEUTROPHILS RELATIVE PERCENT (BEAKER) (test 79 % pgxz=872) LYMPHOCYTES RELATIVE PERCENT (BEAKER) (test 12 % zjjg=805) MONOCYTES RELATIVE PERCENT (BEAKER) (test 8 % acwy=524) EOSINOPHILS RELATIVE PERCENT (BEAKER) (test 1 % bvym=510) BASOPHILS RELATIVE PERCENT (BEAKER) (test 0 % juio=311) NEUTROPHILS ABSOLUTE COUNT (BEAKER) (test 4.83 K/ L 1.78-5.38 zoua=818) LYMPHOCYTES ABSOLUTE COUNT (BEAKER) (test 0.73 K/ L 1.32-3.57 laog=313) MONOCYTES ABSOLUTE COUNT (BEAKER) (test jvsp=334) 0.48 K/ L 0.30-0.82 EOSINOPHILS ABSOLUTE COUNT (BEAKER) (test 0.03 K/ L 0.04-0.54 udep=496) BASOPHILS ABSOLUTE COUNT (BEAKER) (test haid=540) 0.00 K/ L 0.01-0.08 IMMATURE GRANULOCYTES-RELATIVE PERCENT (BEAKER) 0 % 0-1 (test acsj=4509) POCT-GLUCOSE [id number] 02:40:00 Test Item Value Reference Range Comments POC-GLUCOSE METER (BEAKER) 142 mg/dL 70-110 TESTED AT [address] (test tiah=0623) [facility] [address] RAD, CHEST, 1 VIEW, NON [id number] 22:13:00Reason for exam:->IABP positionShould this be performed [...] MDReport Verified Date/Time: 12/31/2017 22:13:34 Reading Location: [address] Reading Room POCT-GLUCOSE [id number] 16:48:00 Test Item Value Reference Range Comments POC-GLUCOSE METER (BEAKER) 120 mg/dL 70-110 TESTED AT [address] (test dbqn=5180) [place] [id number] POCT-GLUCOSE [id number] 13:08:00 Test Item Value Reference Range Comments POC-GLUCOSE METER (BEAKER) 126 mg/dL 70-110 TESTED AT [address] (test ydpo=9946) [facility] [address] RAD, CHEST, 1 VIEW, NON [id number] 11:34:00Reason for exam:->iabpShould this be performed at the bedside?->YesFINAL REPORT CLINICAL HISTORY: iabp TECHNIQUE: 1 view of the chest. COMPARISON: 12/31/2017 IMPRESSION: The supporting lines and tubes are unchanged. Pulmonary vascular congestivefindings are unchanged. The cardiomediastinal silhouette is unchanged poststernotomy. Signed: Julianna Gillette MDReport Verified Date/Time: 12/31/2017 11 :34:32 Reading Location: [facility] Radiology Reading Room RAD, CHEST , 1 VIEW, NON [id number] 08:32:00Reason for exam:->Balloon pump placementShould this be [...] by technique with sternotomy wires. Signed:Julianna Gillette MDReport Verified Date/Time: 12/31/2017 08:32:28 Reading Location: [facility] Radiology Reading Room CBC W/PLT COUNT & AUTO [id number] 07:55:00 Test Item Value Reference Range Comments WHITE BLOOD CELL COUNT (BEAKER) (test nzxw=577) 8.7 K/ L 3.5-10.5 RED BLOOD CELL COUNT (BEAKER) (test ibzz=485) 3.06 M/ L 4.63-6.08 HEMOGLOBIN (BEAKER) (test jqwe=593) 8.8 GM/DL 13.7-17.5 HEMATOCRIT (BEAKER) (test bjml=066) 27.0 % 40.1-51.0 MEAN CORPUSCULAR VOLUME (BEAKER) (test gbyi=025) 88.2 fL 79.0-92.2 MEAN CORPUSCULAR HEMOGLOBIN (BEAKER) (test 28.8 pg 25.7-32.2 wvnb=718) MEAN CORPUSCULAR HEMOGLOBIN CONC (BEAKER) (test 32.6 GM/DL 32.3-36.5 ntec=663) RED CELL DISTRIBUTION WIDTH (BEAKER) (test 13.2 % 11.6-14.4 ojbf=902) PLATELET COUNT (BEAKER) (test tskk=204) 142 K/CU MM 150-450 MEAN PLATELET VOLUME (BEAKER) (test gmbw=661) 11.0 fL 9.4-12.4 NUCLEATED RED BLOOD CELLS (BEAKER) (test 0 /100 WBC 0-0 vzyh=187) (CELLAVISION MANUAL DIFF)2017-12-31 07:55:00 Test Item Value Reference Range Comments NEUTROPHILS - REL (CELLAVISION)(BEAKER) (test 66 % azyl=0807) LYMPHOCYTES - REL (CELLAVISION)(BEAKER) (test 15 % gobe=4489) MONOCYTES - REL (CELLAVISION)(BEAKER) (test 2 % jakp=3765) BANDS - REL (CELLAVISION)(BEAKER) (test xvqv=7383) 16 % 0-10 NEUTROPHILS - ABS (CELLAVISION)(BEAKER) (test 5.74 K/ul 1.78-5.38 ztnr=9008) LYMPHOCYTES - ABS (CELLAVISION)(BEAKER) (test 1.31 K/ul 1.32-3.57 leuf=4010) MONOCYTES - ABS (CELLAVISION)(BEAKER) (test 0.17 K/uL 0.30-0.82 iaqw=2009) BANDS - ABS (CELLAVISION)(BEAKER) (test pvov=0267) 1.39 K/uL 0.00-0.80 TOTAL COUNTED (BEAKER) (test kxft=7519) 100 RBC MORPHOLOGY (BEAKER) (test hxrn=539) Normal WBC MORPHOLOGY (BEAKER) (test pnfn=941) Normal PLT MORPHOLOGY (BEAKER) (test qnnx=520) Normal ARTIFACT (CELLAVISION)(BEAKER) (test ifhi=3943) Present PLATELET CONCENTRATION (CELLAVISION)(BEAKER) (test Decreased xmvu=7067) Received comment: User comments: Slide comments:[id number] 07:12:00 Test Item Value Reference Range Comments PHOSPHORUS (BEAKER) (test lnpy=861) 1.5 mg/dL 2.3-4.7 [id number] 06:59:00 Test Item Value Reference Range Comments MAGNESIUM (BEAKER) (test mtwq=939) 1.5 mg/dL 1.6-2.6 BASIC METABOLIC [id number] 06:59:00 Test Item Value Reference Range Comments SODIUM (BEAKER) (test 138 meq/L 136-145 qehf=286) POTASSIUM (BEAKER) (test 4.2 meq/L 3.5-5.1 wwkm=096) CHLORIDE (BEAKER) (test 109 meq/L 98-107 obtn=162) CO2 (BEAKER) (test 23 meq/L 22-29 mdzq=621) BLOOD UREA NITROGEN 11 mg/dL 7-21 (BEAKER) (test fnkq=535) CREATININE (BEAKER) (test 1.05 mg/dL 0.57-1.25 ktpk=934) GLUCOSE RANDOM (BEAKER) 143 mg/dL 70-105 (test vpge=492) CALCIUM (BEAKER) (test 8.1 mg/dL 8.4-10.2 xhrf=947) EGFR (BEAKER) (test 85 mL/min/1.73 sq m ESTIMATED GFR IS NOT pjoh=7921) ACCURATE CREATININE CLEARANCE IN PREDICTING GLOMERULAR FILTRATION RATE. ESTIMATED GFR IS NOT APPLICABLE FOR DIALYSIS PATIENTS. HEPATIC FUNCTION [id number] 06:59:00 Test Item Value Reference Range Comments TOTAL PROTEIN (BEAKER) (test taoy=738) 5.3 gm/dL 6.0-8.3 ALBUMIN (BEAKER) (test cdhw=2289) 3.1 g/dL 3.5-5.0 BILIRUBIN TOTAL (BEAKER) (test zhwm=264) 0.9 mg/dL 0.2-1.2 BILIRUBIN DIRECT (BEAKER) (test bopj=355) 0.3 mg/dL 0.1-0.5 ALKALINE PHOSPHATASE (BEAKER) (test iwvm=472) 44 U/L 40-150 AST (SGOT) (BEAKER) (test gmdq=585) 41 U/L 5-34 ALT (SGPT) (BEAKER) (test jctn=159) 10 U/L 6-55 THROMBOELASTOGRAPH (TEG)2017-12-31 06:52:00 Test Item Value Reference Range Comments TEG ACTIVATED CLOTTING TIME (BEAKER) (test 8.2 minutes 4.0-7.0 texf=4433) TEG FIBRINOGEN ACTIVITY (BEAKER) (test 68.1 degrees 61.0-73.0 okys=8218) TEG PLT. AGGREGATION (BEAKER) (test tdia=9512) 56.8 MM 55.0-65.0 TEG FIBRINOLYSIS (BEAKER) (test odpf=2821) 0.0 % 0.0-5.0 TGH ACTIVATED CLOTTING TIME (BEAKER) (test 8.0 minutes 4.0-7.0 enbk=6901) TGH FIBRINOGEN ACTIVITY (BEAKER) (test 69.1 degrees 61.0-73.0 leir=8097) TGH PLT. AGGREGATION (BEAKER) (test msnc=6807) 55.0 MM 55.0-65.0 TGH FIBRINOLYSIS (BEAKER) (test crbh=6521) 0.5 % 0.0-5.0 PROTHROMBIN [id number] 06:40:00 Test Item Value Reference Range Comments PROTIME (BEAKER) (test xbcd=012) 16.7 seconds 11.7-14.7 INR (BEAKER) (test yzxk=009) 1.4 <=5.9 RECOMMENDED COUMADIN/WARFARIN INR THERAPY RANGESSTANDARD DOSE: 2.0 - 3.0 Includes: PROPHYLAXIS forvenous thrombosis, systemic embolization; TREATMENT for venous thrombosis and/or pulmonary embolus.HIGH RISK: Target INR is 2.5-3.5 for patients with mechanical heart valves.CBC W/PLT COUNT & AUTO [id number] 06:38:00 Test Item Value Reference Range Comments WHITE BLOOD CELL COUNT (BEAKER) (test zvgg=451) 9.1 K/ L 3.5-10.5 RED BLOOD CELL COUNT (BEAKER) (test gvqw=338) 2.77 M/ L 4.63-6.08 HEMOGLOBIN (BEAKER) (test qhyf=280) 8.0 GM/DL 13.7-17.5 HEMATOCRIT (BEAKER) (test iiks=867) 24.5 % 40.1-51.0 MEAN CORPUSCULAR VOLUME (BEAKER) (test eddc=913) 88.4 fL 79.0-92.2 MEAN CORPUSCULAR HEMOGLOBIN (BEAKER) (test 28.9 pg 25.7-32.2 vdzy=931) MEAN CORPUSCULAR HEMOGLOBIN CONC (BEAKER) (test 32.7 GM/DL 32.3-36.5 crqo=136) RED CELL DISTRIBUTION WIDTH (BEAKER) (test 13.2 % 11.6-14.4 uajh=010) PLATELET COUNT (BEAKER) (test jvaz=118) 144 K/CU MM 150-450 MEAN PLATELET VOLUME (BEAKER) (test ecim=518) 11.0 fL 9.4-12.4 NUCLEATED RED BLOOD CELLS (BEAKER) (test 0 /100 WBC 0-0 vyko=874) NEUTROPHILS RELATIVE PERCENT (BEAKER) (test 77 % tlvb=209) LYMPHOCYTES RELATIVE PERCENT (BEAKER) (test 16 % sukh=121) MONOCYTES RELATIVE PERCENT (BEAKER) (test 6 % bljl=792) EOSINOPHILS RELATIVE PERCENT (BEAKER) (test 1 % quoy=956) BASOPHILS RELATIVE PERCENT (BEAKER) (test 0 % jyvt=645) NEUTROPHILS ABSOLUTE COUNT (BEAKER) (test 6.95 K/ L 1.78-5.38 mlib=683) LYMPHOCYTES ABSOLUTE COUNT (BEAKER) (test 1.45 K/ L 1.32-3.57 qumj=248) MONOCYTES ABSOLUTE COUNT (BEAKER) (test 0.56 K/ L 0.30-0.82 hdcy=417) EOSINOPHILS ABSOLUTE COUNT (BEAKER) (test 0.06 K/ L 0.04-0.54 ocjd=738) BASOPHILS ABSOLUTE COUNT (BEAKER) (test 0.01 K/ L 0.01-0.08 zjbe=707) IMMATURE GRANULOCYTES-RELATIVE PERCENT (BEAKER) 0 % 0-1 (test uwvx=1021) LACTIC ACID, ARTERIAL, WHOLE [id number] 06:31:00 Test Item Value Reference Range Comments LACTATE BLOOD ARTERIAL (2) (BEAKER) (test 2.0 mmol/L 0.5-2.2 zbbr=4058) Effective 10/13/2015: Units/Reference Range ChangeNew: 0.5-2.2 mmol/L Previous: 5 -20 mg/dLBLOOD GAS, [id number] 06:22:00 Test Item Value Reference Range Comments PH ARTERIAL (BEAKER) (test tbew=040) 7.47 7.35-7.45 PCO2 ARTERIAL (BEAKER) (test fcvd=914) 33 mmHg 35-45 PO2 ARTERIAL (BEAKER) (test rflw=139) 411 mmHg 80-90 O2 SATURATION ARTERIAL (BEAKER) (test ciar=832) 99.8 % 96.0-97.0 HCO3 ARTERIAL (BEAKER) (test xxad=035) 24 mmol/L 21-29 BASE EXCESS ARTERIAL (BEAKER) (test vxwj=362) 0.5 mmol/L -2.0-3.0 PATIENT TEMPERATURE (BEAKER) (test wvdt=8065) 35.1 C FIO2 (BEAKER) (test nnyr=6805) 100.0 % 30 minutes post extubationRAD, CHEST, 1 VIEW, NON [id number] 05:27:00Reason for exam:->s/p cardiac surgeryShould this be [...] is normal in size. Signed: Du Chiu VerifiedDate/Time: 12/31/2017 05:27: 47 Reading Location: [address] Body Reading Room [id number] 05:16:00 Test Item Value Reference Range Comments PARTIAL THROMBOPLASTIN TIME (BEAKER) (test 35.0 seconds 22.5-36.0 kqim=107) [id number] 05:15:00 Test Item Value Reference Range Comments FIBRINOGEN LEVEL (BEAKER) (test tebx=291) 251 mg/dl 225-434 PROTHROMBIN TIME/[id number] 05:15:00 Test Item Value Reference Range Comments PROTIME (BEAKER) (test cyql=378) 16.6 seconds 11.7-14.7 INR (BEAKER) (test masx=839) 1.3 <=5.9 RECOMMENDED COUMADIN/WARFARIN INR THERAPY RANGESSTANDARD DOSE: 2.0 - 3.0 Includes: PROPHYLAXIS forvenous thrombosis, systemic embolization; TREATMENT for venous thrombosis and/or pulmonary embolus.HIGH RISK: Target INR is 2.5-3.5 for patients with mechanical heart valves.BLOOD GAS, [id number] 05:11:00 Test Item Value Reference Range Comments PH ARTERIAL (BEAKER) (test hmic=053) 7.45 7.35-7.45 PCO2 ARTERIAL (BEAKER) (test rkes=900) 39 mmHg 35-45 PO2 ARTERIAL (BEAKER) (test fpgj=071) 131 mmHg 80-90 O2 SATURATION ARTERIAL (BEAKER) (test mzas=688) 98.9 % 96.0-97.0 HCO3 ARTERIAL (BEAKER) (test zdrz=712) 27 mmol/L 21-29 BASE EXCESS ARTERIAL (BEAKER) (test pfup=948) 2.4 mmol/L -2.0-3.0 PATIENT TEMPERATURE (BEAKER) (test bwnv=9480) 34.9 C FIO2 (BEAKER) (test gykd=4007) 100.0 % HGB/HCT (H&H) - STAT [id number] 05:11:00 Test Item Value Reference Range Comments HEMOGLOBIN (BEAKER) (test kxqc=636) 10.1 g/dL 13.0-16.8 HEMATOCRIT (BEAKER) (test ryfy=920) 30.0 % 40.0-50.0 OXYGEN SATURATION, [id number] 05:11:00 Test Item Value Reference Range Comments O2 SATURATION (MEASURED) (BEAKER) (test hyfu=6659) 53.9 % GLUCOSE-STAT [id number] 05:11:00 Test Item Value Reference Range Comments GLUCOSE RANDOM (BEAKER) (test aufi=524) 168 mg/dL 70-110 CALCIUM, [id number] 05:11:00 Test Item Value Reference Range Comments CALCIUM IONIZED (BEAKER) (test gzin=001) 1.04 mmol/L 1.12-1.27 PH, BLOOD (BEAKER) (test zhtn=3093) 7.42 SODIUM NA-STAT [id number] 05:10:00 Test Item Value Reference Range Comments SODIUM (BEAKER) (test foky=285) 142 meq/L 135-148 POTASSIUM-STAT [id number] 05:10:00 Test Item Value Reference Range Comments POTASSIUM (BEAKER) (test znte=997) 3.7 meq/L 3.6-5.5 THROMBOELASTOGRAPH (TEG)2017-12-31 03:23:00 Test Item Value Reference Range Comments TEG ACTIVATED CLOTTING TIME (BEAKER) (test 12.1 minutes 4.0-7.0 uazh=1006) TEG FIBRINOGEN ACTIVITY (BEAKER) (test 51.2 degrees 61.0-73.0 xrvk=0233) TEG PLT. AGGREGATION (BEAKER) (test xgag=8814) 38.7 MM 55.0-65.0 TGH ACTIVATED CLOTTING TIME (BEAKER) (test 11.9 minutes 4.0-7.0 etat=7227) TGH FIBRINOGEN ACTIVITY (BEAKER) (test 52.3 degrees 61.0-73.0 xegd=8695) TGH PLT. AGGREGATION (BEAKER) (test yugn=2732) 45.5 MM 55.0-65.0 SODIUM NA-STAT [id number] 03:15:00 Test Item Value Reference Range Comments SODIUM (BEAKER) (test dewk=188) 140 meq/L 135-148 POTASSIUM-STAT [id number] 03:15:00 Test Item Value Reference Range Comments POTASSIUM (BEAKER) (test exkz=312) 4.1 meq/L 3.6-5.5 BLOOD GAS, [id number] 03:15:00 Test Item Value Reference Range Comments PH ARTERIAL (BEAKER) (test dbof=241) 7.36 7.35-7.45 PCO2 ARTERIAL (BEAKER) (test depr=795) 42 mmHg 35-45 PO2 ARTERIAL (BEAKER) (test wkhf=779) 45 mmHg 80-90 O2 SATURATION ARTERIAL (BEAKER) (test ptvb=598) 83.5 % 96.0-97.0 HCO3 ARTERIAL (BEAKER) (test bjwb=658) 23 mmol/L 21-29 BASE EXCESS ARTERIAL (BEAKER) (test oynk=882) -2.6 mmol/L -2.0-3.0 PATIENT TEMPERATURE (BEAKER) (test jlwg=9262) 35.1 C FIO2 (BEAKER) (test nsli=1589) 100.0 % GLUCOSE-STAT [id number] 03:15:00 Test Item Value Reference Range Comments GLUCOSE RANDOM ([facility]) (test zrxo=565) 166 mg/dL 70-110 HGB/HCT (H&H) - STAT [id number] 03:15:00 Test Item Value Reference Range Comments HEMOGLOBIN (BEAKER) (test puau=390) 9.3 g/dL 13.0-16.8 HEMATOCRIT ([facility]) (test bgly=810) 27.0 % 40.0-50.0 [id number] 03:14:00 Test Item Value Reference Range Comments ACTIVATED CLOTTING TIME 109 sec TESTED AT [address] [facility] (test htyx=689) [place] [address] [id number] 03:14:00 Test Item Value Reference Range Comments ACTIVATED CLOTTING TIME 455 sec TESTED AT [address] [facility] (test qkfd=782) [place] [address] [id number] 03:14:00 Test Item Value Reference Range Comments ACTIVATED CLOTTING TIME 483 sec TESTED AT [address] (BEAKER) (test pjfg=258) [place] [address] [id number] 03:14:00 Test Item Value Reference Range Comments ACTIVATED CLOTTING TIME 599 sec TESTED AT [address] (BEAKER) (test lrcb=544) [place] [address] [id number] 03:14:00 Test Item Value Reference Range Comments ACTIVATED CLOTTING TIME 686 sec TESTED AT [address] (BEAKER) (test gvjh=671) [place] [id number] 03:14:00 Test Item Value Reference Range Comments ACTIVATED CLOTTING TIME 505 sec TESTED AT [address] (BEAKER) (test vnnr=769) [place] [address] [id number] 03:13:00 Test Item Value Reference Range Comments ACTIVATED CLOTTING TIME 560 sec TESTED AT [address] (BEAKER) (test xehj=806) [place] [address] [id number] 03:13:00 Test Item Value Reference Range Comments ACTIVATED CLOTTING TIME 599 sec TESTED AT [facility] [address] (BEAKER) (test uvgy=647) [facility] [address] [id number] 02:56:00 Test Item Value Reference Range Comments FIBRINOGEN LEVEL (BEAKER) (test rexr=087) 129 mg/dl 225-434 [id number] 02:52:00 Test Item Value Reference Range Comments PARTIAL THROMBOPLASTIN TIME (BEAKER) (test 38.7 seconds 22.5-36.0 wbev=768) PROTHROMBIN [id number] 02:51:00 Test Item Value Reference Range Comments PROTIME (BEAKER) (test bnpf=218) 23.4 seconds 11.7-14.7 INR (BEAKER) (test zkrz=104) 2.1 <=5.9 RECOMMENDED COUMADIN/WARFARIN INR THERAPY RANGESSTANDARD DOSE: 2.0 - 3.0 Includes: PROPHYLAXIS forvenous thrombosis, systemic embolization; TREATMENT for venous thrombosis and/or pulmonary embolus.HIGH RISK: Target INR is 2.5-3.5 for patients with mechanical heart valves.SODIUM NA-STAT [id number] 02:33:00 Test Item Value Reference Range Comments SODIUM (BEAKER) (test dvao=504) 138 meq/L 135-148 POTASSIUM-STAT [id number] 02:33:00 Test Item Value Reference Range Comments POTASSIUM (BEAKER) (test bely=868) 4.4 meq/L 3.6-5.5 BLOOD GAS, [id number] 02:33:00 Test Item Value Reference Range Comments PH ARTERIAL (BEAKER) (test ijes=685) 7.39 7.35-7.45 PCO2 ARTERIAL (BEAKER) (test jfth=782) 42 mmHg 35-45 PO2 ARTERIAL (BEAKER) (test dagb=831) 143 mmHg 80-90 O2 SATURATION ARTERIAL (BEAKER) (test bfmp=991) 98.9 % 96.0-97.0 HCO3 ARTERIAL (BEAKER) (test uuwh=805) 25 mmol/L 21-29 BASE EXCESS ARTERIAL (BEAKER) (test mvdj=116) -0.3 mmol/L -2.0-3.0 PATIENT TEMPERATURE (BEAKER) (test disj=1170) 35.7 C FIO2 (BEAKER) (test qihn=9289) 100.0 % GLUCOSE-STAT [id number] 02:33:00 Test Item Value Reference Range Comments GLUCOSE RANDOM (BEAKER) (test eglf=549) 169 mg/dL 70-110 HGB/HCT (H&H) - STAT [id number] 02:33:00 Test Item Value Reference Range Comments HEMOGLOBIN (BEAKER) (test ultz=137) 8.1 g/dL 13.0-16.8 HEMATOCRIT (BEAKER) (test mmjq=700) 24.0 % 40.0-50.0 CALCIUM, [id number] 02:32:00 Test Item Value Reference Range Comments CALCIUM IONIZED (BEAKER) (test ldop=337) 0.97 mmol/L 1.12-1.27 PH, BLOOD (BEAKER) (test hldt=6614) 7.37 BLOOD GAS, [id number] 01:52:00 Test Item Value Reference Range Comments PH ARTERIAL (BEAKER) (test gjgt=050) 7.28 7.35-7.45 PCO2 ARTERIAL (BEAKER) (test rpme=746) 55 mmHg 35-45 PO2 ARTERIAL (BEAKER) (test qbog=703) 350 mmHg 80-90 O2 SATURATION ARTERIAL (BEAKER) (test liqd=812) 99.7 % 96.0-97.0 HCO3 ARTERIAL (BEAKER) (test tmnq=906) 25 mmol/L 21-29 BASE EXCESS ARTERIAL (BEAKER) (test legv=724) -1.6 mmol/L -2.0-3.0 PATIENT TEMPERATURE (BEAKER) (test leck=4786) 36.8 C FIO2 (BEAKER) (test vzpc=8468) 85.0 % GLUCOSE-STAT [id number] 01:52:00 Test Item Value Reference Range Comments GLUCOSE RANDOM (BEAKER) (test nxph=315) 167 mg/dL 70-110 HGB/HCT (H&H) - STAT [id number] 01:52:00 Test Item Value Reference Range Comments HEMOGLOBIN (BEAKER) (test pcyg=237) 7.9 g/dL 13.0-16.8 HEMATOCRIT (BEAKER) (test gafo=564) 23.0 % 40.0-50.0 SODIUM NA-STAT [id number] 01:50:00 Test Item Value Reference Range Comments SODIUM (BEAKER) (test csjx=266) 138 meq/L 135-148 POTASSIUM-STAT [id number] 01:50:00 Test Item Value Reference Range Comments POTASSIUM (BEAKER) (test hfnx=514) 5.3 meq/L 3.6-5.5 POTASSIUM-STAT [id number] 01:26:00 Test Item Value Reference Range Comments POTASSIUM (BEAKER) (test 6.1 meq/L 3.6-5.5 SPECIMEN WAS NOT HEMOLYZED rolc=973) HGB/HCT (H&H) - STAT [id number] 01:25:00 Test Item Value Reference Range Comments HEMOGLOBIN (BEAKER) (test rsii=863) 8.3 g/dL 13.0-16.8 HEMATOCRIT (BEAKER) (test rijc=071) 24.0 % 40.0-50.0 BLOOD GAS, [id number] 01:24:00 Test Item Value Reference Range Comments PH ARTERIAL (BEAKER) (test ocrj=068) 7.36 7.35-7.45 PCO2 ARTERIAL (BEAKER) (test fsxj=388) 45 mmHg 35-45 PO2 ARTERIAL (BEAKER) (test icpm=956) 333 mmHg 80-90 O2 SATURATION ARTERIAL (BEAKER) (test gsem=555) 99.7 % 96.0-97.0 HCO3 ARTERIAL (BEAKER) (test mnit=170) 25 mmol/L 21-29 BASE EXCESS ARTERIAL (BEAKER) (test yasy=815) -0.6 mmol/L -2.0-3.0 PATIENT TEMPERATURE (BEAKER) (test ncrx=6976) 36.5 C FIO2 (BEAKER) (test bjkv=0988) 80.0 % GLUCOSE-STAT [id number] 01:24:00 Test Item Value Reference Range Comments GLUCOSE RANDOM (BEAKER) (test wqbg=203) 169 mg/dL 70-110 SODIUM NA-STAT [id number] 01:23:00 Test Item Value Reference Range Comments SODIUM (BEAKER) (test kvyo=724) 137 meq/L 135-148 BLOOD GAS, [id number] 01:00:00 Test Item Value Reference Range Comments PH ARTERIAL (BEAKER) (test xkil=338) 7.42 7.35-7.45 PCO2 ARTERIAL (BEAKER) (test gbwb=860) 30 mmHg 35-45 PO2 ARTERIAL (BEAKER) (test rrvi=816) 282 mmHg 80-90 O2 SATURATION ARTERIAL (BEAKER) (test upnq=681) 99.7 % 96.0-97.0 HCO3 ARTERIAL (BEAKER) (test dlkv=692) 20 mmol/L 21-29 BASE EXCESS ARTERIAL (BEAKER) (test hwrx=626) -5.0 mmol/L -2.0-3.0 PATIENT TEMPERATURE (BEAKER) (test dxmo=6174) 33.0 C FIO2 (BEAKER) (test qmcu=5268) 70.0 % POTASSIUM-STAT [id number] 01:00:00 Test Item Value Reference Range Comments POTASSIUM (BEAKER) (test smjb=054) 5.9 meq/L 3.6-5.5 GLUCOSE-STAT [id number] 01:00:00 Test Item Value Reference Range Comments GLUCOSE RANDOM (BEAKER) (test wasq=512) 143 mg/dL 70-110 HGB/HCT (H&H) - STAT [id number] 01:00:00 Test Item Value Reference Range Comments HEMOGLOBIN (BEAKER) (test ltlv=890) 8.6 g/dL 13.0-16.8 HEMATOCRIT (BEAKER) (test ffua=598) 25.0 % 40.0-50.0 SODIUM NA-STAT [id number] 00:58:00 Test Item Value Reference Range Comments SODIUM (BEAKER) (test pkhb=869) 135 meq/L 135-148 BLOOD GAS, [id number] 00:31:00 Test Item Value Reference Range Comments PH ARTERIAL (BEAKER) (test mwef=170) 7.40 7.35-7.45 PCO2 ARTERIAL (BEAKER) (test iump=984) 31 mmHg 35-45 PO2 ARTERIAL (BEAKER) (test cpvv=296) 312 mmHg 80-90 O2 SATURATION ARTERIAL (BEAKER) (test xptz=110) 99.7 % 96.0-97.0 HCO3 ARTERIAL (BEAKER) (test uqzx=241) 20 mmol/L 21-29 BASE EXCESS ARTERIAL (BEAKER) (test tbmy=066) -5.8 mmol/L -2.0-3.0 PATIENT TEMPERATURE (BEAKER) (test ttvv=3974) 30.0 C FIO2 (BEAKER) (test wdxh=1931) 60.0 % POTASSIUM-STAT [id number] 00:31:00 Test Item Value Reference Range Comments POTASSIUM (BEAKER) (test folj=611) 5.6 meq/L 3.6-5.5 GLUCOSE-STAT [id number] 00:31:00 Test Item Value Reference Range Comments GLUCOSE RANDOM (BEAKER) (test yqnk=396) 157 mg/dL 70-110 HGB/HCT (H&H) - STAT [id number] 00:31:00 Test Item Value Reference Range Comments HEMOGLOBIN (BEAKER) (test rmbs=964) 9.1 g/dL 13.0-16.8 HEMATOCRIT (BEAKER) (test tbsd=095) 27.0 % 40.0-50.0 SODIUM NA-STAT [id number] 00:30:00 Test Item Value Reference Range Comments SODIUM (BEAKER) (test ubtc=141) 135 meq/L 135-148 POTASSIUM-STAT [id number] 00:07:00 Test Item Value Reference Range Comments POTASSIUM (BEAKER) (test cscr=582) 6.6 meq/L 3.6-5.5 BLOOD GAS, [id number] 00:04:00 Test Item Value Reference Range Comments PH ARTERIAL (BEAKER) (test twzj=346) 7.41 7.35-7.45 PCO2 ARTERIAL (BEAKER) (test hmoc=527) 36 mmHg 35-45 PO2 ARTERIAL (BEAKER) (test maol=790) 447 mmHg 80-90 O2 SATURATION ARTERIAL (BEAKER) (test odkv=175) 99.9 % 96.0-97.0 HCO3 ARTERIAL (BEAKER) (test xlsw=438) 23 mmol/L 21-29 BASE EXCESS ARTERIAL (BEAKER) (test xair=553) -2.4 mmol/L -2.0-3.0 PATIENT TEMPERATURE (BEAKER) (test sfrx=0320) 32.0 C FIO2 (BEAKER) (test wweh=3014) 80.0 % SODIUM NA-STAT [id number] 00:04:00 Test Item Value Reference Range Comments SODIUM (BEAKER) (test xqnx=938) 130 meq/L 135-148 GLUCOSE-STAT [id number] 00:04:00 Test Item Value Reference Range Comments GLUCOSE RANDOM (BEAKER) (test udpx=092) 196 mg/dL 70-110 HGB/HCT (H&H) - STAT [id number] 00:04:00 Test Item Value Reference Range Comments HEMOGLOBIN (BEAKER) (test gqxz=841) 9.0 g/dL 13.0-16.8 HEMATOCRIT (BEAKER) (test yscq=395) 26.0 % 40.0-50.0 HEMOGLOBIN [id number] 22:45:00 Test Item Value Reference Range Comments HEMOGLOBIN A1C (BEAKER) (test xvzc=142) 5.6 % 4.3-6.1 [id number] 22:23:00 Test Item Value Reference Range Comments THYROID STIMULATING HORMONE (BEAKER) (test 0.37 uIU/mL 0.35-4.94 wezv=495) CREATINE KINASE (CK), TOTAL AND [id number] 21:58:00 Test Item Value Reference Range Comments CREATINE KINASE TOTAL (BEAKER) (test mver=389) 99 U/L 29-200 CREATINE KINASE-MB (BEAKER) (test lgpz=748) 0.7 ng/mL 0.0-6.6 CREATINE KINASE-MB INDEX (BEAKER) (test bwza=489) 0.7 % CK-MB Reference Range:<6.7 Normal6.7-10.0 Borderline>10.0 AbnormalTROPONIN [id number] 21:58:00 Test Item Value Reference Range Comments TROPONIN I (BEAKER) (test mmlq=651) < ng/mL 0.00-0.03 Troponin I (TnI) levels [...] acute neurological disease, and persistent tachyarrhythmia.BASIC METABOLIC [id number] 21:52:00 Test Item Value Reference Range Comments SODIUM (BEAKER) (test 137 meq/L 136-145 xpup=550) POTASSIUM (BEAKER) (test 4.2 meq/L 3.5-5.1 zzvu=181) CHLORIDE (BEAKER) (test 106 meq/L 98-107 srmj=782) CO2 (BEAKER) (test 22 meq/L 22-29 bjuu=021) BLOOD UREA NITROGEN 15 mg/dL 7-21 (BEAKER) (test mvzp=246) CREATININE (BEAKER) (test 1.47 mg/dL 0.57-1.25 ceez=958) GLUCOSE RANDOM (BEAKER) 110 mg/dL 70-105 (test gqsl=292) CALCIUM (BEAKER) (test 8.6 mg/dL 8.4-10.2 sszf=950) EGFR (BEAKER) (test 58 mL/min/1.73 sq m ESTIMATED GFR IS NOT xcjw=8073) ACCURATE CREATININE CLEARANCE IN PREDICTING GLOMERULAR FILTRATION RATE. ESTIMATED GFR IS NOT APPLICABLE FOR DIALYSIS PATIENTS. LIPID [id number] 21:52:00 Test Item Value Reference Range Comments TRIGLYCERIDES (BEAKER) (test bwpy=804) 72 mg/dL CHOLESTEROL (BEAKER) (test ewmb=291) 161 mg/dL HDL CHOLESTEROL (BEAKER) (test bccd=831) 47 mg/dL LDL CHOLESTEROL CALCULATED (BEAKER) (test 100 mg/dL ubzm=472) Triglyceride Reference Range: Low Risk <150 Borderline 150- 199 High Risk 200-499 Very High Risk >=500Cholesterol Reference Range: Low Risk <200 Borderline 200-239 High Risk > 240HDL Cholesterol Reference Range: Low Risk >=60 High Risk <40LDL Cholesterol Reference Range: Optimal <100 Near Optimal 100-129 Borderline 130-159 High 160-189 Very High >=190HEPATIC FUNCTION [id number] 21:52:00 Test Item Value Reference Range Comments TOTAL PROTEIN (BEAKER) (test wniv=466) 6.6 gm/dL 6.0-8.3 ALBUMIN (BEAKER) (test hcpt=7778) 3.4 g/dL 3.5-5.0 BILIRUBIN TOTAL (BEAKER) (test usdb=390) 0.3 mg/dL 0.2-1.2 BILIRUBIN DIRECT (BEAKER) (test fmqn=312) 0.1 mg/dL 0.1-0.5 ALKALINE PHOSPHATASE (BEAKER) (test clbz=302) 66 U/L 40-150 AST (SGOT) (BEAKER) (test yjqc=863) 10 U/L 5-34 ALT (SGPT) (BEAKER) (test bmjm=375) 8 U/L 6-55 [id number] 21:51:00 Test Item Value Reference Range Comments PHOSPHORUS (BEAKER) (test loci=676) 2.6 mg/dL 2.3-4.7 [id number] 21:51:00 Test Item Value Reference Range Comments MAGNESIUM (BEAKER) (test wagx=670) 1.9 mg/dL 1.6-2.6 [id number] 21:47:00 Test Item Value Reference Range Comments PARTIAL THROMBOPLASTIN TIME (BEAKER) (test > seconds 22.5-36.0 pivw=251) GLUCOSE-STAT [id number] 21:44:00 Test Item Value Reference Range Comments GLUCOSE RANDOM (BEAKER) (test ldle=920) 108 mg/dL 70-110 SODIUM NA-STAT [id number] 21:44:00 Test Item Value Reference Range Comments SODIUM (BEAKER) (test nped=343) 136 meq/L 135-148 POTASSIUM-STAT [id number] 21:44:00 Test Item Value Reference Range Comments POTASSIUM (BEAKER) (test hpal=099) 4.5 meq/L 3.6-5.5 BLOOD GAS, [id number] 21:44:00 Test Item Value Reference Range Comments PH ARTERIAL (BEAKER) (test dyhn=947) 7.46 7.35-7.45 PCO2 ARTERIAL (BEAKER) (test zenl=568) 32 mmHg 35-45 PO2 ARTERIAL (BEAKER) (test wooz=617) 566 mmHg 80-90 O2 SATURATION ARTERIAL (BEAKER) (test kwyx=031) 99.9 % 96.0-97.0 HCO3 ARTERIAL (BEAKER) (test mtmn=721) 22 mmol/L 21-29 BASE EXCESS ARTERIAL (BEAKER) (test iaaw=010) -1.4 mmol/L -2.0-3.0 PATIENT TEMPERATURE (BEAKER) (test qkzz=5453) 36.0 C FIO2 (BEAKER) (test mlif=8193) 100.0 % HGB/HCT (H&H) - STAT [id number] 21:44:00 Test Item Value Reference Range Comments HEMOGLOBIN (BEAKER) (test alum=301) 12.3 g/dL 13.0-16.8 HEMATOCRIT (BEAKER) (test zbsa=853) 36.0 % 40.0-50.0 PROTHROMBIN [id number] 21:24:00 Test Item Value Reference Range Comments PROTIME (BEAKER) (test engz=020) 15.0 seconds 11.7-14.7 INR (BEAKER) (test teik=719) 1.2 <=5.9 RECOMMENDED COUMADIN/WARFARIN INR THERAPY RANGESSTANDARD DOSE: 2.0 - 3.0 Includes: PROPHYLAXIS forvenous thrombosis, systemic embolization; TREATMENT for venous thrombosis and/or pulmonary embolus.HIGH RISK: Target INR is 2.5-3.5 for patients with mechanical heart valves.CBC W/PLT COUNT & AUTO [id number] 21:18:00 Test Item Value Reference Range Comments WHITE BLOOD CELL COUNT (BEAKER) (test ljqa=497) 4.2 K/ L 3.5-10.5 RED BLOOD CELL COUNT (BEAKER) (test pxli=892) 4.05 M/ L 4.63-6.08 HEMOGLOBIN (BEAKER) (test haow=590) 11.3 GM/DL 13.7-17.5 HEMATOCRIT (BEAKER) (test oglm=921) 36.8 % 40.1-51.0 MEAN CORPUSCULAR VOLUME (BEAKER) (test srky=404) 90.9 fL 79.0-92.2 MEAN CORPUSCULAR HEMOGLOBIN (BEAKER) (test 27.9 pg 25.7-32.2 ilvm=024) MEAN CORPUSCULAR HEMOGLOBIN CONC (BEAKER) (test 30.7 GM/DL 32.3-36.5 nwot=612) RED CELL DISTRIBUTION WIDTH (BEAKER) (test 13.1 % 11.6-14.4 mlgi=876) PLATELET COUNT (BEAKER) (test dvuk=798) 106 K/CU MM 150-450 MEAN PLATELET VOLUME (BEAKER) (test qnjs=941) 14.5 fL 9.4-12.4 NUCLEATED RED BLOOD CELLS (BEAKER) (test 0 /100 WBC 0-0 sobm=776) NEUTROPHILS RELATIVE PERCENT (BEAKER) (test 60 % yqrq=631) LYMPHOCYTES RELATIVE PERCENT (BEAKER) (test 28 % yujc=208) MONOCYTES RELATIVE PERCENT (BEAKER) (test 8 % wjuf=905) EOSINOPHILS RELATIVE PERCENT (BEAKER) (test 3 % ntko=033) BASOPHILS RELATIVE PERCENT (BEAKER) (test 1 % vckd=406) NEUTROPHILS ABSOLUTE COUNT (BEAKER) (test 2.51 K/ L 1.78-5.38 bxon=076) LYMPHOCYTES ABSOLUTE COUNT (BEAKER) (test 1.17 K/ L 1.32-3.57 eymb=755) MONOCYTES ABSOLUTE COUNT (BEAKER) (test 0.35 K/ L 0.30-0.82 awmf=202) EOSINOPHILS ABSOLUTE COUNT (BEAKER) (test 0.13 K/ L 0.04-0.54 szrj=125) BASOPHILS ABSOLUTE COUNT (BEAKER) (test 0.02 K/ L 0.01-0.08 crrb=197) IMMATURE GRANULOCYTES-RELATIVE PERCENT (BEAKER) 0 % 0-1 (test qkmg=3791) [id number] 19:52:00 Test Item Value Reference Range Comments ACTIVATED CLOTTING TIME 213 sec TESTED AT [facility] [address] (BEAKER) (test knen=399) [facility] [id number]
[2018-01-31 00:05] LABS: Absolute Monocytes 0.7 K/uL (0.1-1.3); Absolute Neutrophil 6.2 K/uL (1.8-8.0); Basophils % 0.5 % (0-1.3); Eosinophils % 1.3 % (0-4.4); Hematocrit 35.9 % (39.6-49.0); Lymphocytes % 12.4 % (15.3-44.8); MCV 85.3 fL (80-100); MPV 11.6 fL (7.6-11.3); Monocytes % 8.9 % (3.3-12.3)
[2018-01-31 00:07] LABS: Protime INR 1.16
[2018-01-31 00:26] LABS: Albumin 3.2 g/dL (3.4-5.0); Bilirubin Direct 0.1 mg/dL (0-0.2); Bilirubin Total 0.4 mg/dL (0.2-1.0); Magnesium 1.9 mg/dL (1.8-2.4); Potassium 4.5 mmol/L (3.5-5.1); Protein, Total 8.1 g/dL (6.4-8.2)
--- NOTE | 2018-01-31 05:45 | EDPHYS ---
Physician Documentation [facility] Name: Justin Payne Jr Age: 67 yrs Sex: Male : 1950 Arrival Date: 01/30/2018 Time: 22:54 Bed 4 Private MD: Regulo Gandhi B ED Physician Michelet Garcia HPI: 01/31 05:39 This 67 yrs old Black Male presents to ER via Ambulatory with complaints of L Side gs Pain, L Arm Pain. 05:39 The patient presents with pain that is acute. The symptoms are located in the left gs scapular area. Onset: The symptoms/episode began/occurred 2 day(s) ago, and became persistent. The pain radiates to the anterior aspect of left shoulder. Associated signs and symptoms: Pertinent negatives: incontinence, tingling. Modifying factors: the patient symptoms are aggravated by any movement. Severity of symptoms: At their worst the symptoms were moderate, in the emergency department the symptoms are unchanged. The patient has experienced similar episodes in the past, a few times. Historical: - Allergies: 01/30 22:58 No Known Allergies; fc - Home Meds: 22:58 Lipitor 80 mg Oral tab 1 tab once daily [Active]; aspirin 81 mg Oral TbEC 1 tab once fc daily [Active]; Tylenol #3 Oral as needed [Active]; - PMHx: 22:58 Glaucoma; Myocardial infarction; fc - PSHx: 22:58 Triple bypass on December 30, 2017; fc - Immunization history:: Last tetanus immunization: unknown. - Social history:: Smoking status: Patient/guardian denies using tobacco. - Ebola Screening: : Patient negative for fever greater than or equal to 101.5 degrees Fahrenheit, and additional compatible Ebola Virus Disease symptoms Patient denies exposure to infectious person Patient denies travel to an Ebola-affected area in the 21 days before illness onset. ROS: 01/31 05:39 All other systems are negative. gs Exam: 05:39 Head/Face: Normocephalic, atraumatic. Eyes: Pupils equal round and reactive to light, gs extra-ocular motions intact. Lids and lashes normal. Conjunctiva and sclera are non-icteric and not injected. Cornea within normal limits. Periorbital areas with no swelling, redness, or edema. ENT: Nares patent. No nasal discharge, no septal abnormalities noted. Tympanic membranes are normal and external auditory canals are clear. Oropharynx with no redness, swelling, or masses, exudates, or evidence of obstruction, uvula midline. Mucous membranes moist. Neck: Trachea midline, no thyromegaly or masses palpated, and no cervical lymphadenopathy. Supple, full range of motion without nuchal rigidity, or vertebral point tenderness. No Meningismus. Chest/axilla: Normal chest wall appearance and motion. Nontender with no deformity. No lesions are appreciated. Cardiovascular: Regular rate and rhythm with a normal S1 and S2. No gallops, murmurs, or rubs. Normal PMI, no JVD. No pulse deficits. Respiratory: Lungs have equal breath sounds bilaterally, clear to auscultation and percussion. No rales, rhonchi or wheezes noted. No increased work of breathing, no retractions or nasal flaring. Abdomen/GI: Soft, non-tender, with normal bowel sounds. No distension or tympany. No guarding or rebound. No evidence of tenderness throughout. Back: No spinal tenderness. No costovertebral tenderness. Full range of motion. Skin: Warm, dry with normal turgor. Normal color with no rashes, no lesions, and no evidence of cellulitis. MS/ Extremity: Pulses equal, no cyanosis. Neurovascular intact. Full, normal range of motion. Neuro: Awake and alert, GCS 15, oriented to person, place, time, and situation. Cranial nerves II-XII grossly intact. Motor strength 5/5 in all extremities. Sensory grossly intact. Cerebellar exam normal. Normal gait. 05:39 Constitutional: The patient appears alert, awake. 05:39 ECG was reviewed by the Attending Physician. Vital Signs: 01/30 22:54 BP 108 / 95; Pulse 104; Resp 18; Temp 99.5(O); Pulse Ox 98% on R/A; Weight 69.85 kg fc (R); Height 5 ft. 8 in. (172.72 cm) (R); Pain 10; 01/31 00:05 BP 136 / 76; Pulse 91; Resp 18; Pulse Ox 97% on R/A; ea 01:25 BP 149 / 92; Pulse 89; Resp 18; Pulse Ox 97% on R/A; ea 02:22 BP 139 / 81; Pulse 95; Resp 18; Pulse Ox 97% ; ea 03:30 BP 116 / 73; Pulse 90; Resp 18; Pulse Ox 98% ; ea 04:23 BP 121 / 70; Pulse 90; Resp 18; Pulse Ox 97% on R/A; ea 05:55 BP 123 / 73; Pulse 80; Resp 18; Pulse Ox 98% on R/A; ea 01/30 22:54 Body Mass Index 23.42 (69.85 kg, 172.72 cm) fc MDM: 01/30 23:40 Patient medically screened. 01/31 05:39 Differential diagnosis: Abdominal Aortic Aneurysm pe cad. Data reviewed: vital signs, nurses notes. Response to treatment: the patient's symptoms have markedly improved after treatment, and as a result, I will discharge patient. 05:46 Physician consultation: Alberto Landon MD and will see patient in inpatient room. 01/30 23:43 Order name: Basic Metabolic Panel 01/30 23:43 Order name: CBC with Diff; Complete Time: 01:59 01/30 23:43 Order name: LFT's 01/30 23:43 Order name: Magnesium; Complete Time: 01:59 01/30 23:43 Order name: NT PRO-BNP; Complete Time: 01:59 01/30 23:43 Order name: PT-INR; Complete Time: 01:59 01/30 23:43 Order name: Troponin (emerg Dept Use Only); Complete Time: 01:59 01/30 23:43 Order name: XRAY Chest (1 view) 01/30 23:43 Order name: EKG; Complete Time: 23:43 01/30 23:43 Order name: Cardiac monitoring; Complete Time: 23:43 01/30 23:43 Order name: CT Chest For PE Angio 01/30 23:43 Order name: Basic Metabolic Panel; Complete Time: 01:59 EDMS 01/30 23:43 Order name: Liver (Hepatic) Function; Complete Time: 01:59 EDMS 01/31 02:00 Order name: Troponin (emerg Dept Use Only); Complete Time: 03:31 01/30 23:43 Order name: EKG - Nurse/Tech; Complete Time: 23:44 01/30 23:43 Order name: IV Saline Lock; Complete Time: 23:43 01/30 23:43 Order name: Labs collected and sent; Complete Time: 00:02 01/30 23:43 Order name: O2 Per Protocol; Complete Time: 01/30 23:43 Order name: O2 Sat Monitoring; Complete Time: : EC:39 Rate is 92 beats/min. Rhythm is regular. IA interval is normal. QRS interval is normal. gs Q waves are Old. T waves are Flattened. Clinical impression: NSR w/ Non-specific ST/T Changes. Interpreted by me. Administered Medications: No medications were administered Disposition: 01/31/18 05:45 Discharged to Home. Impression: Dorsalgia. - Condition is Stable. - Discharge Instructions: Back Pain, Adult. - Medication Reconciliation Form, Thank You Letter, Antibiotic Education, Prescription Opioid Use form. - Follow up: Private Physician; When: 1 - 2 days; Reason: Re-evaluation by your physician. Signatures: Dispatcher [employer] EDGabriela Lopez RN RN fc Antunez, Elena, RN RN ea Starr, Gregory, MD MD Corrections: (The following items were deleted from the chart) 06:14 05:45 01/31/2018 05:45 Discharged to Home. Impression: Dorsalgia. Condition is Stable. ea Forms are Medication Reconciliation Form, Thank You Letter, Antibiotic Education, Prescription Opioid Use. Follow up: Private Physician; When: 1 - 2 days; Reason: Re-evaluation by your physician. gs
--- NOTE | 2018-01-31 05:45 | ER ---
Nurse's Notes [facility] Name: Justin Payne Jr Age: 67 yrs Sex: Male : 1950 Arrival Date: 01/30/2018 Time: 22:54 Bed 4 Private MD: Regulo Gandhi B Diagnosis: Dorsalgia Presentation: 01/30 22:54 Presenting complaint: Patient states: that he has triple bypass 2-3 weeks ago (December 30) fc at [facility] in [place]. 2 days ago he started to have chest pain to left arm. Also having nausea but no shortness of breath. Transition of care: patient was not received from another setting of care. Onset of symptoms was January 28, 2018. Risk Assessment: Do you want to hurt yourself or someone else? Patient reports no desire to harm self or others. Initial Sepsis Screen: Does the patient meet any 2 criteria? HR > 90 bpm. Yes Does the patient have a suspected source of infection? No. Patient's initial sepsis screen is negative. Care prior to arrival: None. 22:54 Method Of Arrival: Ambulatory fc 22:54 Acuity: STERLING 3 fc Historical: - Allergies: 22:58 No Known Allergies; fc - Home Meds: 22:58 Lipitor 80 mg Oral tab 1 tab once daily [Active]; aspirin 81 mg Oral TbEC 1 tab once fc daily [Active]; Tylenol #3 Oral as needed [Active]; - PMHx: 22:58 Glaucoma; Myocardial infarction; fc - PSHx: 22:58 Triple bypass on December 30, 2017; fc - Immunization history:: Last tetanus immunization: unknown. - Social history:: Smoking status: Patient/guardian denies using tobacco. - Ebola Screening: : Patient negative for fever greater than or equal to 101.5 degrees Fahrenheit, and additional compatible Ebola Virus Disease symptoms Patient denies exposure to infectious person Patient denies travel to an Ebola-affected area in the 21 days before illness onset. Screenin:31 Abuse screen: Denies threats or abuse. Nutritional screening: No deficits noted. ea Tuberculosis screening: No symptoms or risk factors identified. Fall Risk None identified. Assessment: 23:31 General: Appears uncomfortable, Behavior is calm, cooperative, appropriate for age. ea Pain: Complains of pain in left clavicle, anterior aspect of left upper chest, left lateral anterior chest, left lateral posterior chest and left breast Pain radiates to left lateral anterior chest and left lateral posterior chest Pain currently is 10 out of 10 on a pain scale. Quality of pain is described as aching, Pain began 2-3 days ago. Is intermittent. Neuro: Level of Consciousness is awake, alert, obeys commands, Oriented to person, place, time, situation. Cardiovascular: Heart tones S1 S2 present Patient's skin is warm and dry. Respiratory: Airway is patent Respiratory effort is even, unlabored, Respiratory pattern is regular, symmetrical. GI: Abdomen is non-distended, Bowel sounds present X 4 quads. Derm: Skin is dry, Skin is normal, Skin temperature is warm. Musculoskeletal: Circulation, motion, and sensation intact. 01/31 00:04 Reassessment: Patient and/or family updated on plan of care and expected duration. Pain ea level reassessed. Patient is alert, oriented x 3, equal unlabored respirations, skin warm/dry/pink. 01:25 Reassessment: Patient and/or family updated on plan of care and expected duration. Pain ea level reassessed. Patient is alert, oriented x 3, equal unlabored respirations, skin warm/dry/pink. 02:22 Reassessment: Patient and/or family updated on plan of care and expected duration. Pain ea level reassessed. Patient is alert, oriented x 3, equal unlabored respirations, skin warm/dry/pink. 03:59 Reassessment: Patient and/or family updated on plan of care and expected duration. Pain ea level reassessed. Patient is alert, oriented x 3, equal unlabored respirations, skin warm/dry/pink. Awaiting on CT results. 04:22 Reassessment: Patient and/or family updated on plan of care and expected duration. Pain ea level reassessed. Patient is alert, oriented x 3, equal unlabored respirations, skin warm/dry/pink. Awaiting on CT resutls. 05:55 Reassessment: Patient and/or family updated on plan of care and expected duration. Pain ea level reassessed. Patient is alert, oriented x 3, equal unlabored respirations, skin warm/dry/pink. Discharge instructions given to patient, verbalized the understanding of instruction. Vital Signs: 01/30 22:54 BP 108 / 95; Pulse 104; Resp 18; Temp 99.5(O); Pulse Ox 98% on R/A; Weight 69.85 kg fc (R); Height 5 ft. 8 in. (172.72 cm) (R); Pain 8; 01/31 00:05 BP 136 / 76; Pulse 91; Resp 18; Pulse Ox 97% on R/A; ea 01:25 BP 149 / 92; Pulse 89; Resp 18; Pulse Ox 97% on R/A; ea 02:22 BP 139 / 81; Pulse 95; Resp 18; Pulse Ox 97% ; ea 03:30 BP 116 / 73; Pulse 90; Resp 18; Pulse Ox 98% ; ea 04:23 BP 121 / 70; Pulse 90; Resp 18; Pulse Ox 97% on R/A; ea 05:55 BP 123 / 73; Pulse 80; Resp 18; Pulse Ox 98% on R/A; ea 01/30 22:54 Body Mass Index 23.42 (69.85 kg, 172.72 cm) ED Course: 01/30 22:54 Patient arrived in ED. ds1 22:54 Arm band placed on Patient placed in an exam room, on a stretcher. fc 22:55 Regulo Gandhi MD is Private Physician. ds1 22:56 Triage completed. fc 23:16 Michelet Garcia MD is Attending Physician. gs 23:18 Deanna Troncoso, ANGELIKA is Primary Nurse. ea 23:31 Patient has correct armband on for positive identification. Bed in low position. Call ea light in reach. Side rails up X 1. 23:44 Inserted saline lock: 20 gauge in left antecubital area, using aseptic technique. Blood ea collected. 23:44 Initial lab(s) drawn, by me, EKG done, by ED staff. ea 01/31 00:00 X-ray completed. Portable x-ray completed in exam room. Patient tolerated procedure kw well. 00:26 XRAY Chest (1 view) In Process Unspecified. EDMS 01:32 CT Chest For PE Angio In Process Unspecified. EDMS 02:26 CT completed. Patient tolerated procedure well. Patient moved to CT via stretcher. Patient moved back from CT. 06:03 No provider procedures requiring assistance completed. IV discontinued, intact, ea bleeding controlled, No redness/swelling at site. Pressure dressing applied. Administered Medications: No medications were administered Outcome: 05:45 Discharge ordered by . alissa 06:02 Condition: improved ea 06:02 Discharge instructions given to patient, Instructed on discharge instructions, follow up and referral plans. Demonstrated understanding of instructions, follow-up care. 06:14 Discharged to home via wheelchair, with significant other. ea 06:14 Patient left the ED. ea Signatures: Dispatcher [employer] EDKarlos Sarabia Felicia, RN RN fc Sanford, Demi ds1 Lindsay Reyes Elena, RN RN ea Starr, Gregory, MD MD
--- NOTE | 2018-01-31 08:40 | RAD REPORT ---
EXAM DESCRIPTION: CT - Chest For Pe Angio - 01/31/2018 4:32 am CLINICAL HISTORY: Chest pain. CHEST PAIN COMPARISON: No comparisons TECHNIQUE: CT angiogram of the pulmonary arteries was performed with MIP. All CT scans are performed using dose optimization technique as appropriate and may include automated exposure control or mA/KV adjustment according to patient size. FINDINGS: No evidence of pulmonary thromboembolism. The distal pulmonary arterial tree is somewhat s uboptimally visualized due to motion artifact. No acute aortic finding demonstrated. Mild linear subsegmental atelectasis is present both lung bases posteriorly. Postsurgical changes of a prior CABG noted. Focal pleural fluid collection is noted anterior left ple ural space extending to anterior to the pericardiac region. Small amount of fluid is also seen the le ft major fissure. No concerning bony finding. IMPRESSION: No evidence of pulmonary thromboembolism. Distal branch vessel assessment is somewhat li mited due to respiratory motion artifact. Postsurgical changes are present related to recent CABG with left anterior loculated pleural fluid no kathe.
--- NOTE | 2018-01-31 09:06 | RAD REPORT ---
EXAM DESCRIPTION: RAD - Chest Single View - 01/31/2018 12:26 am CLINICAL HISTORY: CHEST PAIN Chest pain. COMPARISON: Chest Single View dated 01/16/2018; Chest For Pe Angio dated 01/31/2018 FINDINGS: Portable technique limits examination quality. The lungs are grossly clear. The heart is normal in size. Sternotomy changes are present.
--- NOTE | 2018-01-31 16:30 | EKG ---
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
== END 2018-01-31 06:14 | disposition home or self-care (01) ==
LOC: ER 22:51
DX: M54.9 Dorsalgia, unspecified (principal); I25.2 Old myocardial infarction; Z95.1 Presence of aortocoronary bypass graft; Z79.82 Long term (current) use of aspirin
CPT/HCPCS: 36415; 71045; 71275; 80048; 80076; 83735; 83880; 84484 ×2; 85025; 85610; 93005; 99284; Q9967